=== PATIENT | female | born 1940 | race Caucasian/White ===

== ENCOUNTER 2017-04-10 20:53 | Inpatient (IN) | payer OTHER ==
[~2017-04-10] VITALS: Ht 162.6 cm; Wt 65.3 kg
[~2017-04-10 20:53] MED LIST: ALLERGY RELIEF10 M1; AMIODARONE PO; CALCIUM; DIGOXIN125 MCG PO; FERROUS SULFAT325 MG; FOLIC ACID1 MG PO; FUROSEMIDE40 MG PO; LEVOTHYROXINE75 MCG PO; METOPROLOL TART25 MG PO; MULTI-VITAMIN1 EACH; POTASSIUM CHLORIDE; PRESERVISION T1 EACH; RANITIDINE HCL150 MG; SIMVASTATIN40 MG PO; VENTOLIN HFA18 GM IH; XARELTO PO
[2017-04-10 22:41] LABS: BASOPHILS # (AUTO) 0.1 (0.0-0.1); BASOPHILS % 0.8 % (0.0-1.0); EOSINOPHILS # (AUTO) 0.1 (0.0-0.4); EOSINOPHILS % 1.2 % (0.0-6.0); HEMATOCRIT 38.9 % (34.2-44.1); HEMOGLOBIN 12.1 g/dL (12.0-16.0); LYMPHOCYTES # (AUTO) 1.1 (1.0-3.2); LYMPHOCYTES % 17.6 % (18.0-39.1); MEAN CORPUSCULAR HEMOGLOBIN 31.7 pg (28-32); MEAN CORPUSCULAR HGB CONC 31.1 g/dL (31-35); MEAN CORPUSCULAR VOLUME 101.8 fL (81-99); MONOCYTES # (AUTO) 0.5 (0.2-0.8); MONOCYTES % 8.7 % (4.4-11.3); NEUTROPHILS # (AUTO) 4.4 (2.1-6.9); NEUTROPHILS % 71.5 % (38.7-80.0); PLATELET COUNT 157 x10e3/uL (140-360); RED BLOOD COUNT 3.82 x10e6/uL (3.6-5.1); RED CELL DISTRIBUTION WIDTH 16.1 % (11.7-14.4)
[2017-04-10 22:45] LABS: INR 1.09; PROTHROMBIN TIME 14.7 seconds (11.9-14.5)
[2017-04-10 22:46] LABS: PARTIAL THROMBOPLASTIN TIME 35.5 seconds (23.8-35.5)
[2017-04-10 22:53] LABS: ALBUMIN 3.8 g/dL (3.5-5.0); ALBUMIN/GLOBULIN RATIO 1.2 (0.8-2.0); ANION GAP 11.1 mmol/L (8-16); CALCIUM 8.8 mg/dL (8.4-10.2); CREATININE, SERUM 0.95 mg/dL (0.57-1.11); POTASSIUM 4.1 mmol/L (3.5-5.1)
[2017-04-10 22:59] LABS: CREATINE KINASE MB 2.6 ng/mL (0.00-5.00); TROPONIN I 0.017 ng/mL (0-0.300)
--- NOTE | 2017-04-10 23:06 | Diagnostic Imaging Report ---
CHEST SINGLE (PORTABLE), 04/10/2017 10:33 PM Technique: CHEST SINGLE (PORTABLE) Comparison: None available. Clinical history: Shortness of breath Findings: See Impression Impression: 1. Lines/Tubes: Left chest wall 3 lead ICD. Note that one of the leads (coronary sinus lead?) is retracted over the expected brachiocephalic vein. 2. Moderately enlarged cardiac silhouette poststernotomy. 3. Central vascular congestion without overt edema. No significant effusion. Signed by: Dr Tierra Paz MD on 04/10/2017 11:02 PM
[2017-04-11] MEDS ORDERED: SODIUM CHLORIDE FLUSH 10 ML SYR INJ PRN (00:15)
[2017-04-11 01:30] VITALS: BP 133/81
[2017-04-11 04:00] VITALS: BP 108/66
[2017-04-11 08:47] VITALS: BP 136/80
[2017-04-11] MEDS: FUROSEMIDE INJ 10 MG/ML 4 ML VIAL IV SCH ×2 (09:00→17:00)
[2017-04-11] MEDS: FOLIC ACID 1 MG TAB PO SCH (09:00)
[2017-04-11] MEDS ORDERED: METOPROLOL TARTRATE 25 MG TAB PO SCH (09:00)
[2017-04-11] MEDS: POTASSIUM CHLORIDE 20 MEQ TAB CR PO SCH ×2 (09:00→17:00)
[2017-04-11] MEDS ORDERED: LEVOTHYROXINE SODIUM 75 MCG TAB PO SCH (09:00)
[2017-04-11] MEDS ORDERED: ALBUTEROL SULFATE HFA 8GM INHALATION AEROSOL INH PRN (09:00)
[2017-04-11] MEDS: LORATADINE 10 MG TAB PO SCH (09:00)
[2017-04-11] MEDS: DIGOXIN 0.125 MG TAB PO SCH (09:00)
--- NOTE | 2017-04-11 09:17 | History and Physical ---
PRIMARY CARE PROVIDER: Dr. Nikolai Friedman CONSULTING: Dr. Anand Collado CHIEF COMPLAINT: Acute systolic dysfunction of congestive heart failure. HISTORY: A 77-year-old female with history of extensive coronary disease with bypass surgery times 2 vessels back in 2000. She also had a left carotid endarterectomy and bilateral lower extremity bypass surgery with peripheral vascular disease. Patient came in with acute exacerbation of congestive heart failure. Systolic EF approximately 30% to 35%. The patient is otherwise stable at this time. PAST MEDICAL HISTORY: Coronary artery disease, history of bypass surgery in 2000 times 2 vessels, left carotid endarterectomy, peripheral vascular disease with history of bilateral lower extremity bypass surgery, congestive heart failure, ICD placement in December 2016, hypertension, hyperlipidemia, hypothyroidism, atrial fibrillation, on anticoagulant therapy, Xarelto, chronic kidney disease. PAST SURGICAL HISTORY: Right heart surgery times 2 vessels in 2000, left carotid endarterectomy, bilateral lower extremity bypass surgery, ICD placement December 2016, total abdominal hysterectomy. ALLERGIES: NAPROXEN. HOME MEDICATIONS 1. Ventolin. 2. Digoxin. 3. Ferrous sulfate. 4. Folic acid. 5. Furosemide 40 mg twice a day. 6. Levothyroxine 75 mcg daily. 7. Claritin. 8. Metoprolol tartrate 25 mg daily. 9. Ranitidine. 10. Simvastatin. 11. Amiodarone 200 mg b.i.d. 12. Potassium. 13. Xarelto 60 mg daily. REVIEW OF SYSTEMS: Shortness of breath and lower extremity swelling bilaterally. PHYSICAL EXAMINATION VITAL SIGNS: Temperature is 98, blood pressure 106/56, pulse rate 96, respirations 23. GENERAL: The patient is in no acute distress. HEENT: Normocephalic, atraumatic and anicteric. NECK: Supple grossly. Left carotid endarterectomy. PULMONARY: Diminished breath sounds at bases. CARDIOVASCULAR: S1 and S2 with atrial fibrillation, rate controlled. ABDOMEN: Soft. EXTREMITIES: Bilateral lower extremity edema. NEUROLOGIC: No gross focal deficits. LABORATORY: WBC is 6, hemoglobin 12, hematocrit 39, and platelets 157,000. Sodium 140, potassium 4.1, chloride 102, bicarb 31, BUN 18, creatinine 0.9, glucose 110. IMPRESSION 1. [id number] systolic dysfunction congestive heart failure. 2. Bilateral lower extremity edema. 3. Multiple baseline problems. 4. Coronary disease with previous bypass surgery. 5. Peripheral vascular disease. 6. Implantable cardioverter defibrillator. 7. Hypertension. 8. Medical debility. PLAN: Consultation Dr. Anand Collado. Echocardiogram. IV Lasix. Repeat lab work. Home medication adjustment. PT and OT. DVT prophylaxis. Resume the patient's Xarelto. Job#: [id number] RI
[2017-04-11 10:06] LABS: CREATINE KINASE MB 2.7 ng/mL (0.00-5.00); TROPONIN I 0.025 ng/mL (0-0.300)
--- NOTE | 2017-04-11 11:39 | Consultation ---
DATE OF CONSULTATION: April 11, 2017 CARDIOLOGY CONSULTATION REASON FOR CONSULTATION: CHF. HPI: This is a pleasant 77-year-old female that presented with bilateral lower extremity edema. According to the patient, she started feeling some tightness and redness to the bilateral lower extremities that she decided to come into the emergency room for evaluation. She recently had a history of ICD placement at [facility], and developed a hematoma. ICD was removed. Blood clot was removed and reimplanted. She also has a history of AFib, on digoxin. Was not anticoagulated due to anemia. She denies any chest pain, any dizziness or diaphoresis. Troponin was negative. EKG showed normal sinus rhythm with some PVCs. BNP was 1402. PAST MEDICAL HISTORY: Hypertension, hiatal hernia, hypothyroidism, PAD, CAD, COPD, CHF, MA, hyperlipidemia, and AFib. PAST SURGICAL HISTORY: Appendectomy, ICD placement, left CEA, hysterectomy, bilateral fem-pop, and CABG times 2. FAMILY HISTORY: Positive for CAD. SOCIAL HISTORY: No smoking. No drinking. MEDICATION: See med list. ALLERGIES: SHE IS ALLERGIC TO NAPROXEN. REVIEW OF SYSTEMS: Negative except those mentioned above. She is positive for bilateral lower extremity edema and redness. PHYSICAL EXAMINATION VITALS: Temperature 97, heart rate 99, blood pressure 136/80, respirations 20, oxygen saturation 100% on 2 L nasal cannula. GENERAL: She is awake, alert and oriented times 3. HEENT: Mucous membrane moist. NECK: Supple. LUNGS: With decreased breath sounds. CARDIOVASCULAR: Irregular. ABDOMEN: Soft. EXTREMITIES: With +3 edema. NEUROLOGIC: Intact. LABS: Sodium 140, potassium 4.1, chloride 102, CO2 31, BUN 18, creatinine 0.95, glucose 110. White blood cells 6.08, hemoglobin 12.1, hematocrit 38.9, and platelets 157,000. PT 14.7, PTT 35.5 and INR 1.09. IMPRESSION 1. Systolic congestive heart failure. 2. Coronary artery disease with coronary artery bypass graft. 3. History of implantable cardioverter defibrillator placement. 4. Anemia. 5. Peripheral arterial disease, status post hematoma evacuation from implantable cardioverter defibrillator site. 6. Hypothyroidism. 7. History of atrial fibrillation. ASSESSMENT AND PLAN: Will go ahead and continue IV diureses. Put her on low-dose ROMEL, beta germán and statin. Put her on fluid restriction. Strict salt restriction. Further cardiac workup pending clinical course. Thank you for this consultation. DICTATED BY DENVER FRENCH NP Job#: [id number] RI
[2017-04-11 13:46] VITALS: BP 119/73
--- NOTE | 2017-04-11 15:44 | Diagnostic Imaging Report ---
PROCEDURE: CT CHEST WITHOUT CONTRAST CT scan of the chest WITHOUT intravenous contrast, using standard protocol. TECHNIQUE: The chest was scanned utilizing a multidetector helical scanner from the apex to the level of the adrenal glands. No IV contrast was administered because of referring physician request. Coronal and sagittal multiplanar reformations were obtained. COMPARISON: None. INDICATIONS: SHORTNESS OF BREATH FINDINGS: Lines/tubes: None. Lungs and Airways: Advanced upper lobe predominant centrilobular and paraseptal emphysematous changes. Superimposed smooth interlobular septal thickening. Linear opacity in the lung bases, right greater than left compatible with subsegmental atelectasis. 4 mm nodule in the right lower lobe. No gross consolidation, honeycombing, or bronchiectasis. Trachea, mainstem bronchi, and central lobar and segmental bronchi are patent. Pleura: Trace bilateral pleural effusions no pneumothorax. Heart and mediastinum: Visualized portions of the thyroid gland appear normal. No ectasia or aneurysmal dilatation of the thoracic aorta. Atherosclerotic calcification of the thoracic aorta, great vessel origins, and ambler coronary arteries. Postsurgical changes of coronary artery bypass and left subclavian approach implantable cardiac device placement. Leads lie within the right atrium and right ventricle. Moderate cardiomegaly with four-chamber cardiac enlargement. Pulmonary outflow tract is of normal caliber. Soft tissues: No focal soft tissue abnormalities. Abdomen: Visualized portions of the liver, spleen, and proximal stomach are notable only for enlargement of the hepatic veins and intrahepatic IVC likely indicative of elevated right heart pressures. Bones: No acute osseous abnormality. IMPRESSION: Moderate cardiomegaly with interstitial pulmonary edema and trace bilateral pleural effusions. Upper lobe predominant emphysema. Atherosclerotic vascular disease. 4 mm nodule in the right lower lobe should be assessed for stability by CT scan the chest in one year if the patient is at increased risk of malignancy. Dictated by: Tom Baum M.D. on 04/11/2017 at 15:52 Electronically approved by: Tom Baum M.D. on 04/11/2017 at 15:52
[2017-04-11] MEDS: METOPROLOL TARTRATE 25 MG TAB PO SCH (17:00)
[2017-04-11 20:09] VITALS: BP 119/66
[2017-04-11] MEDS ORDERED: SIMVASTATIN 40 MG TAB PO SCH (21:00)
[2017-04-11 21:21] LABS: CREATINE KINASE MB 2.6 ng/mL (0.00-5.00); TROPONIN I 0.022 ng/mL (0-0.300)
[2017-04-11] MEDS: SIMVASTATIN 40 MG TAB PO SCH (21:26)
[2017-04-12 00:20] VITALS: BP 121/70
[2017-04-12 04:00] VITALS: BP 101/65
[2017-04-12] MEDS: LEVOTHYROXINE SODIUM 75 MCG TAB PO SCH (06:03)
[2017-04-12 06:48] LABS: BASOPHILS # (AUTO) 0.1 (0.0-0.1); BASOPHILS % 0.9 % (0.0-1.0); EOSINOPHILS # (AUTO) 0.1 (0.0-0.4); EOSINOPHILS % 1.4 % (0.0-6.0); HEMATOCRIT 33.5 % (34.2-44.1); HEMOGLOBIN 10.7 g/dL (12.0-16.0); LYMPHOCYTES # (AUTO) 0.9 (1.0-3.2); LYMPHOCYTES % 15.8 % (18.0-39.1); MEAN CORPUSCULAR HEMOGLOBIN 31.8 pg (28-32); MEAN CORPUSCULAR HGB CONC 31.9 g/dL (31-35); MEAN CORPUSCULAR VOLUME 99.4 fL (81-99); MONOCYTES # (AUTO) 0.6 (0.2-0.8); MONOCYTES % 10.8 % (4.4-11.3); NEUTROPHILS # (AUTO) 4.1 (2.1-6.9); NEUTROPHILS % 70.8 % (38.7-80.0); PLATELET COUNT 125 x10e3/uL (140-360); RED BLOOD COUNT 3.37 x10e6/uL (3.6-5.1)
[2017-04-12 07:13] LABS: ANION GAP 14.1 mmol/L (8-16); BLOOD UREA NITROGEN 18 mg/dL (7-26); BUN/CREATININE RATIO 20 (6-25); CALCIUM 8.9 mg/dL (8.4-10.2); CARBON DIOXIDE 30 mmol/L (22-29); CHLORIDE 102 mmol/L (98-107); CREATININE, SERUM 0.88 mg/dL (0.57-1.11); EST GLOMERULAR FILTRATION RATE > 60 ML/MIN (60-); GLUCOSE 93 mg/dL (74-118); POTASSIUM 4.1 mmol/L (3.5-5.1); SODIUM 142 mmol/L (136-145)
[2017-04-12 08:09] VITALS: BP 107/68
[2017-04-12 08:36] LABS: THYROID STIMULATING HORMONE 8.293 uIU/mL (0.350-4.940)
[2017-04-12] MEDS: FOLIC ACID 1 MG TAB PO SCH (09:28)
[2017-04-12] MEDS: POTASSIUM CHLORIDE 20 MEQ TAB CR PO SCH ×2 (09:28→17:32)
[2017-04-12] MEDS: LORATADINE 10 MG TAB PO SCH (09:28)
[2017-04-12] MEDS: DIGOXIN 0.125 MG TAB PO SCH (09:28)
[2017-04-12] MEDS: FUROSEMIDE INJ 10 MG/ML 4 ML VIAL IV SCH ×2 (09:28→18:03)
[2017-04-12] MEDS: METOPROLOL TARTRATE 25 MG TAB PO SCH ×2 (09:28→17:33)
[2017-04-12] MEDS: RIVAROXABAN 15 MG TABLET PO SCH (09:29)
[2017-04-12] MEDS: LISINOPRIL 10 MG TAB PO SCH (09:29)
[2017-04-12 12:24] VITALS: BP 104/69
[2017-04-12 16:00] VITALS: BP 114/72
[2017-04-12 19:30] VITALS: BP 97/61
[2017-04-12] MEDS: SIMVASTATIN 40 MG TAB PO SCH (23:19)
[2017-04-13 02:17] VITALS: BP 95/67
[2017-04-13] MEDS: LEVOTHYROXINE SODIUM 75 MCG TAB PO SCH (05:54)
[2017-04-13 05:56] VITALS: BP 134/77
[2017-04-13 08:09] VITALS: BP 100/60
[2017-04-13] MEDS: LORATADINE 10 MG TAB PO SCH (08:40)
[2017-04-13] MEDS: METOPROLOL TARTRATE 25 MG TAB PO SCH ×2 (08:40→15:46)
[2017-04-13] MEDS: POTASSIUM CHLORIDE 20 MEQ TAB CR PO SCH ×2 (08:40→15:51)
[2017-04-13] MEDS: FOLIC ACID 1 MG TAB PO SCH (08:40)
[2017-04-13] MEDS: DIGOXIN 0.125 MG TAB PO SCH (08:40)
[2017-04-13] MEDS: FUROSEMIDE INJ 10 MG/ML 4 ML VIAL IV SCH (08:40)
[2017-04-13] MEDS: LISINOPRIL 10 MG TAB PO SCH (08:41)
[2017-04-13] MEDS: RIVAROXABAN 15 MG TABLET PO SCH (08:41)
[2017-04-13] MEDS ORDERED: LISINOPRIL 10 MG TAB PO SCH (09:00)
[2017-04-13] MEDS: FUROSEMIDE 40 MG TAB PO SCH ×2 (09:00→15:51)
[2017-04-13] MEDS: LISINOPRIL 2.5 MG TAB PO SCH (09:17)
[2017-04-13] MEDS: METOLAZONE 5 MG TAB PO SCH (10:53)
[2017-04-13 12:00] VITALS: BP 95/60
[2017-04-13 15:48] VITALS: BP 96/67
[2017-04-13 20:00] VITALS: BP 103/59
[2017-04-13] MEDS: SIMVASTATIN 40 MG TAB PO SCH (20:10)
[2017-04-14] VITALS: BP 103/56
[2017-04-14 04:00] VITALS: BP 125/67
[2017-04-14] MEDS: LEVOTHYROXINE SODIUM 75 MCG TAB PO SCH (05:41)
[2017-04-14 06:55] LABS: BASOPHILS % 0.6 % (0.0-1.0); EOSINOPHILS # (AUTO) 0.1 (0.0-0.4); EOSINOPHILS % 1.5 % (0.0-6.0); HEMATOCRIT 37.6 % (34.2-44.1); HEMOGLOBIN 11.6 g/dL (12.0-16.0); LYMPHOCYTES # (AUTO) 1.2 (1.0-3.2); LYMPHOCYTES % 22.7 % (18.0-39.1); MEAN CORPUSCULAR HEMOGLOBIN 30.9 pg (28-32); MEAN CORPUSCULAR HGB CONC 30.9 g/dL (31-35); MONOCYTES # (AUTO) 0.6 (0.2-0.8); MONOCYTES % 10.7 % (4.4-11.3); NEUTROPHILS # (AUTO) 3.4 (2.1-6.9); NEUTROPHILS % 64.1 % (38.7-80.0); PLATELET COUNT 164 x10e3/uL (140-360); RED BLOOD COUNT 3.76 x10e6/uL (3.6-5.1); RED CELL DISTRIBUTION WIDTH 15.7 % (11.7-14.4)
[2017-04-14 07:23] LABS: CALCIUM 9.3 mg/dL (8.4-10.2); CREATININE, SERUM 1.02 mg/dL (0.57-1.11)
[2017-04-14 08:09] VITALS: BP 116/61
[2017-04-14] MEDS: FUROSEMIDE 40 MG TAB PO SCH (08:33)
[2017-04-14] MEDS: POTASSIUM CHLORIDE 20 MEQ TAB CR PO SCH (08:33)
[2017-04-14] MEDS: FOLIC ACID 1 MG TAB PO SCH (08:33)
[2017-04-14] MEDS: LORATADINE 10 MG TAB PO SCH (08:33)
[2017-04-14] MEDS: RIVAROXABAN 15 MG TABLET PO SCH (08:34)
[2017-04-14] MEDS: DIGOXIN 0.125 MG TAB PO SCH (08:34)
[2017-04-14] MEDS: METOLAZONE 5 MG TAB PO SCH (08:34)
[2017-04-14] MEDS: METOPROLOL TARTRATE 25 MG TAB PO SCH (08:34)
[2017-04-14] MEDS: LISINOPRIL 2.5 MG TAB PO SCH (08:34)
[2017-04-14] MEDS ORDERED: LISINOPRIL 2.5 MG TAB PO SCH (09:00)
--- NOTE | 2017-04-14 09:52 | Discharge Summary ---
PCP: Dr. Nikolai Friedman CUTTER OPERATOR: Dr. Anand Collado FINAL DIAGNOSES 1. [id number] systolic dysfunction congestive heart failure. 2. Baseline hypertension. 3. Baseline atrial fibrillation, on anticoagulant therapy. A 77-year-old female came in with lower extremity swelling consistent with [id number] systolic dysfunction congestive heart failure. The patient received IV furosemide. She did much better. The patient is back to her usual regimen. Instructions for the patient regarding fluid restriction. Patient is stable. She will go home today and resume home medications. In addition to her home medications, she will take Zaroxolyn 5 mg daily as needed for increasing leg swelling or increasing shortness of breath or weight gain. Patient expressed understanding. She will go home today and follow up as an outpatient. The patient should follow up with Dr. Nikolai Friedman early next week and Dr. Collado within a week. Job#: [id number] [place]
== END 2017-04-14 11:20 | disposition home health service (06) | DRG 293 ==
LOC: ER 20:53 → MED/SURG 04-11 01:01
PROVIDERS: ADMIT Internal Medicine; ATTEND Internal Medicine
DX: I11.0 Hypertensive heart disease with heart failure (principal); J44.9 Chronic obstructive pulmonary disease, unspecified; I48.2 Chronic atrial fibrillation; I73.9 Peripheral vascular disease, unspecified; I50.23 Acute on chronic systolic (congestive) heart failure; Z79.01 Long term (current) use of anticoagulants; E03.9 Hypothyroidism, unspecified; I25.10 Atherosclerotic heart disease of native coronary artery without angina pectoris; D64.9 Anemia, unspecified; Z95.1 Presence of aortocoronary bypass graft; Z79.52 Long term (current) use of systemic steroids; R60.0 Localized edema; I25.2 Old myocardial infarction
CPT/HCPCS: 36415; 71010; 71250; 80048; 80053; 82550; 82553; 83880; 84443; 84484; 85025; 85610; 85730; 93005; 93306; 93970; 99284; J1940

== ENCOUNTER 2017-05-22 19:23 | Observation (INO) | payer OTHER ==
[~2017-05-22] VITALS: Ht 162.6 cm; Wt 54.0 kg
[2017-05-22] MEDS ORDERED: PANTOPRAZOLE 40 MG 10ML VIAL IV STA (19:51)
[2017-05-22] MEDS ORDERED: AMIODARONE HCL200 MG PO (20:02)
[2017-05-22] MEDS ORDERED: POTASSIUM CHLO10 ME1 PO (20:02)
[2017-05-22 20:26] LABS: BASOPHILS # (AUTO) 0.1 (0.0-0.1); BASOPHILS % 0.7 % (0.0-1.0); EOSINOPHILS % 0.6 % (0.0-6.0); HEMATOCRIT 43.3 % (34.2-44.1); HEMOGLOBIN 13.8 g/dL (12.0-16.0); LYMPHOCYTES # (AUTO) 1.4 (1.0-3.2); LYMPHOCYTES % 20.9 % (18.0-39.1); MEAN CORPUSCULAR HEMOGLOBIN 32.3 pg (28-32); MEAN CORPUSCULAR HGB CONC 31.9 g/dL (31-35); MEAN CORPUSCULAR VOLUME 101.4 fL (81-99); MONOCYTES # (AUTO) 0.6 (0.2-0.8); NEUTROPHILS # (AUTO) 4.6 (2.1-6.9); NEUTROPHILS % 68.7 % (38.7-80.0); PLATELET COUNT 179 x10e3/uL (140-360); RED BLOOD COUNT 4.27 x10e6/uL (3.6-5.1); RED CELL DISTRIBUTION WIDTH 14.5 % (11.7-14.4)
[2017-05-22 20:31] LABS: INR 1.43; PARTIAL THROMBOPLASTIN TIME 40.7 seconds (23.8-35.5); PROTHROMBIN TIME 18.2 seconds (11.9-14.5)
[2017-05-22 20:37] LABS: BILIRUBIN,URINE NEGATIVE (NEGATIVE); CLARITY,URINE CLEAR (CLEAR); COLOR,URINE YELLOW (YELLOW); KETONES,URINE NEGATIVE (NEGATIVE); LEUKOCYTE ESTERASE ,URINE NEGATIVE (NEGATIVE); NITRITE,URINE NEGATIVE (NEGATIVE); PROTEIN,URINE DIPSTICK NEGATIVE (NEGATIVE); URINE UROBILINOGEN 0.2 mg/dL (0.2 - 1)
[2017-05-22 20:41] LABS: ALBUMIN 4.8 g/dL (3.5-5.0); ALBUMIN/GLOBULIN RATIO 1.3 (0.8-2.0); ANION GAP 15.7 mmol/L (8-16); CREATININE, SERUM 1.39 mg/dL (0.57-1.11); MAGNESIUM 2.3 MG/DL (1.3-2.1); POTASSIUM 3.7 mmol/L (3.5-5.1)
--- NOTE | 2017-05-22 20:52 | Diagnostic Imaging Report ---
Examination: CT head without contrast Clinical Indication: Dizziness. Hypotension.. Technique: Transaxial noncontrast images from the skull base through the vertex were obtained. Sagittal and coronal reformatted images were done. Comparison: None. Findings: Scalp: No abnormalities. Bones: Intact. No fractures. No blastic or lytic lesions. Brain sulci: Appropriate for patient's age. Ventricles: Normal in size and configuration. No hydrocephalus. . Extra-axial space: No abnormalities. Parenchyma: There are subtle confluent areas of low-attenuation within subcortical and periventricular white matter, nonspecific, but could represent microvascular ischemic disease. No masses, hemorrhage, or acute vascular insults. Suprasellar region: No abnormalities. Craniocervical junction: The foramen magnum is patent. No Chiari one malformation. Incidental findings: Atherosclerotic calcification of the cavernous and supraclinoid internal carotid arteries. Impression: 1. No acute intracranial abnormality. 2. Mild chronic microvascular ischemic change. Signed by: Dr. Mary Mart M.D. on 05/22/2017 8:48 PM
[2017-05-22 20:56] LABS: B-TYPE NATRIURETIC PEPTIDE2 669.5 pg/mL (0-100)
[2017-05-22 20:58] LABS: BACTERIA,URINE FEW /HPF; EPITHELIAL CELLS,URINE FEW /LPF; RBC,URINE 0-5 /HPF (0-5); WBC,URINE (MAN) 0-5 /HPF (0-5)
[2017-05-22 21:01] LABS: CREATINE KINASE MB 2.2 ng/mL (0.00-5.00); THYROID STIMULATING HORMONE 6.36 uIU/mL (0.350-4.940)
--- NOTE | 2017-05-22 21:20 | Diagnostic Imaging Report ---
CHEST SINGLE (PORTABLE), 05/22/2017 7:51 PM Technique: CHEST SINGLE (PORTABLE) Comparison: 04/10/2017 Clinical history: Cough, lightheadedness Findings: See Impression Impression: 1. Lines/Tubes: Stable left chest wall ICD. One of the leads (coronary sinus) is again retracted over the brachiocephalic vein. 2. Stable enlarged cardiac silhouette status post sternotomy with central vascular congestion. 3. Trace effusions. Signed by: Dr Tierra Paz MD on 05/22/2017 9:16 PM
[2017-05-22] MEDS ORDERED: SODIUM CHLORIDE 0.9% 250ML 250 ML IV ONE (21:45)
[2017-05-22] MEDS ORDERED: SODIUM CHLORIDE 0.9% 500ML 500 ML IV ONE (21:45)
[2017-05-22] MEDS ORDERED: SODIUM CHLORIDE 0.9% 250ML 250 ML ONE (21:46)
[2017-05-23] VITALS (7 sets, daily range): BP systolic 95–110; BP diastolic 58–67
[2017-05-23] MEDS ORDERED: DEXTROSE 50% SYRINGE 50 ML IV PRN (00:45)
[2017-05-23] MEDS ORDERED: ONDANSETRON HCL INJ 2 MG/ML VIAL IV PRN (00:45)
[2017-05-23] MEDS ORDERED: SODIUM CHLORIDE 0.9% 500ML 500 ML IV ONE (00:45)
[2017-05-23] MEDS ORDERED: FAMOTIDINE 20 MG/2 ML VIAL IV SCH (00:45)
[2017-05-23 03:42] LABS: CREATINE KINASE MB 2.3 ng/mL (0.00-5.00)
[2017-05-23] MEDS: INSULIN REGULAR, HUMAN 100 UNIT/1 ML 3ML VIAL SQ SCH ×4 (07:30→20:54)
[2017-05-23 07:41] LABS: BASOPHILS % 0.5 % (0.0-1.0); EOSINOPHILS # (AUTO) 0.1 (0.0-0.4); EOSINOPHILS % 1.2 % (0.0-6.0); HEMATOCRIT 35.9 % (34.2-44.1); HEMOGLOBIN 11.4 g/dL (12.0-16.0); LYMPHOCYTES # (AUTO) 1.4 (1.0-3.2); LYMPHOCYTES % 24.8 % (18.0-39.1); MEAN CORPUSCULAR HEMOGLOBIN 32.3 pg (28-32); MEAN CORPUSCULAR HGB CONC 31.8 g/dL (31-35); MEAN CORPUSCULAR VOLUME 101.7 fL (81-99); MONOCYTES # (AUTO) 0.6 (0.2-0.8); MONOCYTES % 10.2 % (4.4-11.3); NEUTROPHILS # (AUTO) 3.6 (2.1-6.9); NEUTROPHILS % 63.1 % (38.7-80.0); PLATELET COUNT 142 x10e3/uL (140-360); RED BLOOD COUNT 3.53 x10e6/uL (3.6-5.1); RED CELL DISTRIBUTION WIDTH 14.4 % (11.7-14.4)
[2017-05-23 07:53] LABS: ALBUMIN 3.9 g/dL (3.5-5.0); ALBUMIN/GLOBULIN RATIO 1.4 (0.8-2.0); ANION GAP 14.1 mmol/L (8-16); CALCIUM 8.9 mg/dL (8.4-10.2); CREATININE, SERUM 1.14 mg/dL (0.57-1.11); POTASSIUM 3.1 mmol/L (3.5-5.1)
[2017-05-23] MEDS ORDERED: POTASSIUM CHLORIDE 10 MEQ TABCR PO ONE (09:00)
[2017-05-23] MEDS ORDERED: LEVOTHYROXINE SODIUM 75 MCG TAB PO SCH (09:00)
[2017-05-23] MEDS ORDERED: AMIODARONE PO SCH (09:00)
[2017-05-23] MEDS ORDERED: XARELTO 15 MG PO SCH (09:00)
[2017-05-23] MEDS: LORATADINE 10 MG TAB PO SCH (09:20)
[2017-05-23] MEDS: FOLIC ACID 1 MG TAB PO SCH (09:20)
[2017-05-23] MEDS: METOPROLOL TARTRATE 25 MG TAB PO SCH (09:21)
[2017-05-23] MEDS: DIGOXIN 0.125 MG TAB PO SCH (09:21)
--- NOTE | 2017-05-23 09:41 | History and Physical ---
CHIEF COMPLAINT: Dehydration and generalized weakness. HISTORY: Patient is a 77-year-old female with baseline systolic dysfunction and congestive heart failure. The patient basically was taking multiple diabetics at home. She does have ICD in the left chest area. The patient came in for dehydration. Apparently, she lost 20 pounds over the past 12 weeks. The patient is otherwise stable at this time. She is feeling a little better today with rehydration. PAST MEDICAL HISTORY: Hypertension, hiatal hernia, hypothyroidism, peripheral arterial and vascular disease, coronary disease with previous bypass surgery, COPD, baseline congestive heart failure, systolic, hyperlipidemia , atrial fibrillation. PAST SURGICAL HISTORY: Appendectomy, ICD placement left chest, CEA, hysterectomy, bilateral fem-pop surgery, bypass surgery times 2. SOCIAL HISTORY: Patient lives at home with her family. She does have home health and provider care. Patient does not smoke or use alcohol. No regular drugs. ALLERGIES: NAPROXEN. MEDICATIONS: List reviewed. REVIEW OF SYSTEMS: Generalized weakness. PHYSICAL EXAMINATION VITAL SIGNS: Temperature is 98, blood pressure is 110/67, pulse rate is 101, respirations 18. GENERAL: The patient is not in acute distress. She is awake. HEENT: Normocephalic, atraumatic and anicteric. NECK: Supple grossly. PULMONARY: Diminished breath sounds without any wheezing. CARDIOVASCULAR: S1 and S2. Irregularly irregular tachy. ICD in left chest. ABDOMEN: Soft, nontender and no distention. EXTREMITIES: No gross cyanosis or edema. NEUROLOGIC: No gross focal deficit. LABORATORY: Sodium is 137, potassium 3.1, chloride 91, bicarb 35, BUN 26, creatinine 1.1, glucose is 97. WBC is 5.8, hemoglobin 11.4, hematocrit 35.9, and platelets 142,000. IMPRESSION 1. Dehydration. 2. Overdiuresis. 3. Baseline systolic dysfunction and congestive heart failure without exacerbation. 4. Baseline chronic obstructive pulmonary disease without exacerbation. PLAN: Gentle IV fluid rehydration. Hold off on the patient's diuretic. Discontinue Holloway. Will monitor the patient closely. The patient is in observation for now. Job#: [id number] ID
[2017-05-23] MEDS ORDERED: AMIODARONE HCL 200 MG TAB PO SCH (10:00)
[2017-05-23] MEDS: POTASSIUM CHLORIDE 10 MEQ TABCR PO SCH ×2 (10:30→16:47)
[2017-05-23 11:27] LABS: CREATINE KINASE MB 2.6 ng/mL (0.00-5.00)
[2017-05-23] MEDS: AMIODARONE HCL 200 MG TAB PO SCH (16:47)
[2017-05-23 17:33] LABS: CREATINE KINASE MB 2.3 ng/mL (0.00-5.00)
[2017-05-23] MEDS ORDERED: SIMVASTATIN 40 MG TAB PO SCH (21:00)
[2017-05-24 00:10] VITALS: BP 94/60
[2017-05-24 04:00] VITALS: BP 92/66
[2017-05-24] MEDS ORDERED: LEVOTHYROXINE SODIUM 75 MCG TAB PO SCH (06:00)
[2017-05-24 06:43] LABS: BASOPHILS % 0.6 % (0.0-1.0); EOSINOPHILS # (AUTO) 0.1 (0.0-0.4); EOSINOPHILS % 2.3 % (0.0-6.0); HEMATOCRIT 36.5 % (34.2-44.1); HEMOGLOBIN 11.6 g/dL (12.0-16.0); LYMPHOCYTES # (AUTO) 1.4 (1.0-3.2); MEAN CORPUSCULAR HGB CONC 31.8 g/dL (31-35); MEAN CORPUSCULAR VOLUME 100.8 fL (81-99); MONOCYTES # (AUTO) 0.6 (0.2-0.8); MONOCYTES % 10.7 % (4.4-11.3); NEUTROPHILS % 58.2 % (38.7-80.0); PLATELET COUNT 141 x10e3/uL (140-360); RED BLOOD COUNT 3.62 x10e6/uL (3.6-5.1); RED CELL DISTRIBUTION WIDTH 14.2 % (11.7-14.4)
[2017-05-24 07:04] LABS: ANION GAP 12.7 mmol/L (8-16); CALCIUM 9.1 mg/dL (8.4-10.2); CREATININE, SERUM 1.11 mg/dL (0.57-1.11); POTASSIUM 3.7 mmol/L (3.5-5.1)
[2017-05-24] MEDS: INSULIN REGULAR, HUMAN 100 UNIT/1 ML 3ML VIAL SQ SCH (07:30)
[2017-05-24 08:00] VITALS: BP 106/70
[2017-05-24] MEDS ORDERED: RIVAROXABAN 15 MG TABLET PO SCH (09:00)
[2017-05-24] MEDS: FOLIC ACID 1 MG TAB PO SCH (09:18)
[2017-05-24] MEDS: LORATADINE 10 MG TAB PO SCH (09:18)
[2017-05-24] MEDS: POTASSIUM CHLORIDE 10 MEQ TABCR PO SCH (09:18)
[2017-05-24] MEDS: AMIODARONE HCL 200 MG TAB PO SCH (09:18)
[2017-05-24] MEDS: DIGOXIN 0.125 MG TAB PO SCH (09:18)
[2017-05-24] MEDS: METOPROLOL TARTRATE 25 MG TAB PO SCH (09:19)
--- NOTE | 2017-05-24 11:51 | Discharge Summary ---
FINAL DIAGNOSES 1. Dehydration secondary to overdiuresis of baseline congestive heart failure, compensated. 2. Baseline compensated cardiomyopathy with congestive heart failure, systolic. SUMMARY: A 77-year-old female with dehydration. The patient has compensated congestive heart failure. She was unable to eat, had some dehydration because of overdiuresis. She was given IV fluids. The patient is stable now. She is comfortable. She will go home today, resume her home medication. BUN and creatinine are 23 and 1.1 respectively. Sodium is 142 and potassium 3.7. I educated the patient regarding fluid status and she expressed understanding. The patient is stable. Discharged home today, follow up as an outpatient for any further adjustment of her medications. I suggested the patient to weigh herself on a daily basis and adjust her diuretic and fluid management accordingly. Job#: [id number] SAK
== END 2017-05-24 12:10 | disposition home or self-care (01) ==
LOC: ER 19:23 → ERHOLD 05-23 00:59 → IMCU 05-23 02:53
PROVIDERS: ADMIT Internal Medicine; ATTEND Internal Medicine
DX: E86.0 Dehydration (principal); J44.9 Chronic obstructive pulmonary disease, unspecified; T50.1X5A Adverse effect of loop [high-ceiling] diuretics, initial encounter; I50.22 Chronic systolic (congestive) heart failure; I25.10 Atherosclerotic heart disease of native coronary artery without angina pectoris; N28.9 Disorder of kidney and ureter, unspecified
CPT/HCPCS: 36415 ×3; 70450; 71045; 80048; 80053 ×2; 81001; 82150; 82550 ×2; 82553 ×2; 82948; 83605; 83690; 83735; 83880; 84443; 84484 ×2; 85025 ×3; 85610; 85730; 87040; 87086; 87400; 93005; 99284; G0378 ×2; J7040; J7050

== ENCOUNTER 2017-07-20 16:00 | Emergency (ER) | payer OTHER ==
[~2017-07-20] VITALS: Ht 162.6 cm; Wt 54.0 kg
[~2017-07-20 16:00] MED LIST changes: +AMIODARONE HCL200 MG PO; +POTASSIUM CHLO10 ME1 PO
--- OUTSIDE RECORDS SUMMARY | 2017-07-20 16:04 | XMS REPORT | Continuity of Care Document ---
Author Author [facility] Organization [facility] Address [address] [place] [address] [place] [address] Phone Unavailable Care Team Providers Care Books Binder Name Role Phone JUANITA BRENNAN MD PCP Insurance Providers Guarantor Natalia Echevarria Address [address] [address] Email [email or web address] Payer [employer] Policy Number [id number] Subscriber's Name Natalia Echevarria Relationship 18 Self / Same As Patient Group Number [id number] Group Name [employer] - [employer] Ad[employer]age [employer] Effective Date 17 Advance Directives Directive Response Recorded Date/Time Does the patient have an advance directive? No 05/23/17 4:33am If yes, is advance directive on file with [facility]? No 05/23/17 4:33am If not on file with [facility] will patient provide a copy? No 05/23/17 4:33am Do you have a Directive to Physician? No 05/22/17 9:43pm Do you have a Medical Power of Supervisor Hand Workers? No 05/22/17 9:43pm Do you have an out of hospital Do Not Resuscitate Order? No 05/22/17 9:43pm Do you have any special needs we should be aware of? No 05/22/17 9:43pm Do you have a support person here with you today? Yes 05/22/17 9:43pm Did patient receive Notice of Privacy Practices? Yes 05/22/17 9:43pm Did patient receive patient rights and responsibilities? Yes 05/22/17 9:43pm Problems Medical Problem Onset Date Status CHF (congestive heart failure) Unknown Dehydration Unknown Renal insufficiency Unknown Medications Current Home Medications Medication Dose Units Route Directions Days Qty Instructions Start Date Albuterol Sulfate (Ventolin Hfa) 18 Gm Hfa.aer.ad 1-2 Inh Inhalation Every 4 Hours Amiodarone 20 Mg Oral Twice A Day Beta Carotene (Preservision Tablet) 1 Each Tab 1 Tab Twice A Day Digoxin 125 Mcg Tablet 0.125 Mg Oral Daily 30 Tab Ferrous Sulfate 325 Mg Tablet Twice A Day Folic Acid 1 Mg Tablet 1 Mg Oral Daily 30 Tab Furosemide 40 Mg Tablet 40 Mg Oral Twice A Day 30 Tab Levothyroxine Sodium 75 Mcg Tablet 75 Mcg Oral Daily 30 Tab Loratadine (Allergy Relief) 10 Mg Tablet Daily Metoprolol Tartrate 25 Mg Tablet 25 Mg Oral Daily Multivitamin (Multi-Vitamin Daily) 1 Each Tablet Daily Potassium Chloride 2 Tab Daily Potassium Chloride 10 Meq Tab.er.prt 10 Meq Oral Before Meals Ranitidine Hcl 150 Mg Tablet Daily Simvastatin 40 Mg Tablet 40 Mg Oral Bedtime 30 Tab Xarelto 15 Mg Oral Daily Past Home Medications Medication Directions Ordered Status Amiodarone Hcl 200 Mg Tablet, 1 Tab Oral Daily Discontinued Calcuium , 600 Mg Twice A Day Discontinued Social History Social History Problem Response Recorded Date/Time Onset Date Status Hx Psychiatric Problems No 05/23/2017 4:33am Not Applicable Not Applicable Hx Eating Disorder No 05/23/2017 4:33am Not Applicable Not Applicable Hx Substance Use Disorder No 05/23/2017 4:33am Not Applicable Not Applicable Hx Depression No 05/23/2017 4:33am Not Applicable Not Applicable Hx Alcohol Use No 05/23/2017 4:33am Not Applicable Not Applicable Hx Substance Use Treatment No 05/23/2017 4:33am Not Applicable Not Applicable Hx Physical Abuse No 05/23/2017 4:33am Not Applicable Not Applicable Smoking Status Start Date Stop Date Former smoker Hospital Discharge Instructions No hospital discharge instruction information available. Plan of Care Discharge Date 05/24/17 12:10pm Disposition HOME, SELF-CARE Instructions/Education Provided Dehydration - Adult Congestive Heart Failure Prescriptions See Medication Section Functional Status Query Response Date Recorded Assistive Devices Rolling Walker May 23, 2017 4:22am Ambulation Ability Independent May 23, 2017 4:22am Toileting Ability Independent May 23, 2017 5:38pm Allergies, Adverse Reactions, Alerts Allergen Type Severity Reaction Status Last Updated Naproxen Allergy Unknown RASH Active 04/06/17 Immunizations No immunization information available. Vital Signs Acute Vital Signs Vital Response Date/Time Temperature (Fahrenheit) 96.7 degrees F (97.6 - 99.5) 05/24/2017 8:00am Pulse Pulse Rate (adult) 103 bpm (60 - 90) 05/24/2017 8:00am Respiratory Rate 20 bpm (12 - 24) 05/24/2017 8:00am Blood Pressure 106/70 mm Hg 05/24/2017 8:00am Height 5 ft 4 in 05/22/2017 7:35pm Weight 119.13 lb 05/24/2017 12:11am Body Mass Index 20.4 kg/m^2 05/24/2017 12:11am Results Laboratory Results Test Name Result Units Flags Reference Collection Date/Time Result Date/ Time Comments White Blood Count 5.15 x10e3/uL 4.8-10.8 05/24/2017 6:18am 05/24/2017 6 :46am Red Blood Count 3.62 x10e6/uL 3.6-5.1 05/24/2017 6:18am 05/24/2017 6: 46am Hemoglobin 11.6 g/dL L 12.0-16.0 05/24/2017 6:18am 05/24/2017 6:46am Hematocrit 36.5 % 34.2-44.1 05/24/2017 6:18am 05/24/2017 6:46am Mean Corpuscular Volume 100.8 fL H 81-99 05/24/2017 6:18am 05/24/2017 6: 46am Mean Corpuscular Hemoglobin 32.0 pg 28-32 05/24/2017 6:18am 05/24/2017 6:46am Mean Corpuscular Hemoglobin Concent 31.8 g/dL 31-35 05/24/2017 6:05/24/2017 6:46am Red Cell Distribution Width 14.2 % 11.7-14.4 05/24/2017 6:2017 6:46am Platelet Count 141 x10e3/uL 140-360 05/24/2017 6:05/24/2017 6: 46am Neutrophils (%) (Auto) 58.2 % 38.7-80.0 05/24/2017 6:05/24/2017 6: 46am Lymphocytes (%) (Auto) 28.0 % 18.0-39.1 05/24/2017 6:05/24/2017 6: 46am Monocytes (%) (Auto) 10.7 % 4.4-11.3 05/24/2017 6:05/24/2017 6: 46am Eosinophils (%) (Auto) 2.3 % 0.0-6.0 05/24/2017 6:05/24/2017 6: 46am Basophils (%) (Auto) 0.6 % 0.0-1.0 05/24/2017 6:05/24/2017 6:46am IM GRANULOCYTES % 0.2 % 0.0-1.0 05/24/2017 6:05/24/2017 6:46am Neutrophils # (Auto) 3.0 2.1-6.9 05/24/2017 6:05/24/2017 6:46am Lymphocytes # (Auto) 1.4 1.0-3.2 05/24/2017 6:05/24/2017 6:46am Monocytes # (Auto) 0.6 0.2-0.8 05/24/2017 6:05/24/2017 6:46am Eosinophils # (Auto) 0.1 0.0-0.4 05/24/2017 6:05/24/2017 6:46am Basophils # (Auto) 0.0 0.0-0.1 05/24/2017 6:05/24/2017 6:46am Absolute Immature Granulocyte (auto 0.01 x10e3/uL 0-0.1 05/24/2017 6: 18am 05/24/2017 6:46am Prothrombin Time 18.2 seconds H 11.9-14.5 05/22/2017 7:55pm 05/22/2017 8 :39pm Prothromb Time International Ratio 1.43 05/22/2017 7:55pm 2017 8:39pm Oral Anticoagulant Therapy INR Values: 1. Low Intensity Therapy 1.5 - 2.0 2. Moderate Intensity Therapy 2.0 - 3.0 3. High Intensity Therapy(1) 2.5 - 3.5 4. High Intensity Therapy(2) 3.0 - 4.0 5. Panic Value INR > 5.0 Activated Partial Thromboplast Time 40.7 seconds H 23.8-35.5 05/22/2017 7 :55pm 05/22/2017 8:39pm Urine Color YELLOW YELLOW 05/22/2017 7:55pm 05/22/2017 8:38pm Urine Clarity CLEAR CLEAR 05/22/2017 7:55pm 05/22/2017 8:38pm Urine Specific [place] 1.010 1.010-1.025 05/22/2017 7:55pm 2017 8:38pm Urine pH 7 5 - 7 05/22/2017 7:55pm 05/22/2017 8:38pm Urine Leukocyte Esterase NEGATIVE NEGATIVE 05/22/2017 7:55pm 2017 8:38pm Urine Nitrite NEGATIVE NEGATIVE 05/22/2017 7:55pm 05/22/2017 8:38pm Urine Protein NEGATIVE NEGATIVE 05/22/2017 7:55pm 05/22/2017 8:38pm Urine Glucose (UA) NEGATIVE NEGATIVE 05/22/2017 7:55pm 05/22/2017 8: 38pm Urine Ketones NEGATIVE NEGATIVE 05/22/2017 7:55pm 05/22/2017 8:38pm Urine Urobilinogen 0.2 mg/dL 0.2 - 1 05/22/2017 7:55pm 05/22/2017 8: 38pm Urine Bilirubin NEGATIVE NEGATIVE 05/22/2017 7:55pm 05/22/2017 8: 38pm Urine Blood NEGATIVE NEGATIVE 05/22/2017 7:55pm 05/22/2017 8:38pm Urine WBC 0-5 /HPF 0-5 05/22/2017 7:55pm 05/22/2017 8:58pm Urine RBC 0-5 /HPF 0-5 05/22/2017 7:55pm 05/22/2017 8:58pm Urine Bacteria FEW /HPF NONE 05/22/2017 7:55pm 05/22/2017 8:58pm Urine Epithelial Cells FEW /LPF NONE 05/22/2017 7:55pm 05/22/2017 8: 58pm Urine Hyaline Casts 2-5 H 0-1 05/22/2017 7:55pm 05/22/2017 8:58pm Sodium Level 142 mmol/L 136-145 05/24/2017 6:18am 05/24/2017 7:13am Potassium Level 3.7 mmol/L 3.5-5.1 05/24/2017 6:18am 05/24/2017 7:13am Chloride Level 98 mmol/L 98-107 05/24/2017 6:18am 05/24/2017 7:13am Influenza Virus Types A,B Antigen NEGATIVE NEGATIVE 05/22/2017 7:55pm 05/22/2017 8:52pm Carbon Dioxide Level 35 mmol/L H -05/24/2017 6:18am 05/24/2017 7: 13am Anion Gap 12.7 mmol/L 8-05/24/2017 6:18am 05/24/2017 7:13am Blood Urea Nitrogen 23 mg/dL 7-05/24/2017 6:18am 05/24/2017 7:13am Creatinine 1.11 mg/dL 0.57-1.11 05/24/2017 6:18am 05/24/2017 7:13am BUN/Creatinine Ratio 21 6-05/24/2017 6:18am 05/24/2017 7:13am Estimat Glomerular Filtration Rate 48 ML/MIN L 60- 05/24/2017 6:18am 7:13am Ranges were taken from the National Kidney Disease Education Program and the National Kidney Foundation literature. Reference ranges: 60 or greater: Normal 16-59 (for 3 consecutive months): Chronic kidney disease 15 or less: Kidney failure Glucose Level 88 mg/dL 74-118 05/24/2017 6:18am 05/24/2017 7:13am Calcium Level 9.1 mg/dL 8.4-10.2 05/24/2017 6:18am 05/24/2017 7:13am Bedside Glucose 109 mg/dL 70-120 05/23/2017 7:50pm 05/23/2017 8:07pm Meter ID: [id number] Lactic Acid Level 10.3 MG/DL 4.5-19.8 05/22/2017 7:55pm 05/22/2017 8: 38pm Magnesium Level 2.3 MG/DL H 1.3-2.1 05/22/2017 7:55pm 05/22/2017 8:51pm Total Bilirubin 2.7 mg/dL H 0.2-1.2 05/23/2017 3:00am 05/23/2017 7:55am Aspartate Amino Transf (AST/SGOT) 24 IU/L 5-34 05/23/2017 3:00am 2017 7:55am Alanine Aminotransferase (ALT/SGPT) 12 IU/L 0-55 05/23/2017 3:00am 7:55am Total Protein 6.7 g/dL # 6.5-8.1 05/23/2017 3:00am 05/23/2017 7:55am Albumin 3.9 g/dL 3.5-5.0 05/23/2017 3:00am 05/23/2017 7:55am Globulin 2.8 g/dL 2.3-3.5 05/23/2017 3:00am 05/23/2017 7:55am Albumin/Globulin Ratio 1.4 0.8-2.0 05/23/2017 3:00am 05/23/2017 7: 55am Alkaline Phosphatase 82 IU/L 40-150 05/23/2017 3:00am 05/23/2017 7: 55am B-Type Natriuretic Peptide 669.5 pg/mL H 0-100 05/22/2017 7:55pm 2017 8:59pm Creatine Kinase 56 IU/L 29-168 05/23/2017 4:50pm 05/23/2017 5:26pm Creatine Kinase MB 2.30 ng/mL 0.00-5.00 05/23/2017 4:50pm 05/23/2017 5: 33pm Troponin I 0.042 ng/mL 0-0.300 05/23/2017 4:50pm 05/23/2017 5:33pm Amylase Level 45 U/L 25-125 05/22/2017 7:55pm 05/22/2017 8:51pm Lipase 62 U/L 8-78 05/22/2017 7:55pm 05/22/2017 8:51pm Thyroid Stimulating Hormone (TSH) 6.360 uIU/mL H 0.350-4.940 05/22/2017 7 :55pm 05/22/2017 9:02pm Microbiology Results Procedure Source Organism/Result Collection Date/Time Result Date/Time Result Status Blood Culture Blood NO GROWTH AFTER 24 HOURS 05/22/2017 7:55pm 05/23/2017 8:16pm Preliminary Procedures Procedure Status Date Provider(s) EGD BIOPSY SINGLE/MULTIPLE Completed 04/06/17 MURRAY BURTON MD Computed tomography of chest without contrast Active 04/11/17 DENISA ZHANG MD Computed tomography of brain without radiopaque contrast Active 05/22/17 BORIS LEACH MD Encounters Encounter Location Arrival/Admit Date Discharge/Depart Date Attending Provider Discharged Inpatient (obs) [facility] 05/23/17 12:59am 12:10pm DENISA ZHANG MD Discharged Inpatient [facility] 04/11/17 1:01am 04/14/17 11:20am DENISA ZHANG MD Registered Surgical Day Care [facility] 04/06/17 8:57am MURRAY BURTON MD
--- OUTSIDE RECORDS SUMMARY | 2017-07-20 16:04 | XMS REPORT ---
Author Author [facility] Address Unknown Phone Unavailable Care Team Providers Care Black Studies Professor Name Role Phone BORIS LEACH Unavailable Unavailable DENISA ZHANG Unavailable Unavailable Problems This patient has no known problems. Allergies, Adverse Reactions, Alerts This patient has no known allergies or adverse reactions. Medications This patient has no known medications. Results Test Description Test Time Test Comments Text Results Atomic Results Result Comments CT BRAIN WO [place] [address] Patient Name: NATALIA SULLIVAN MR #: [id number] : 1940 Age/Sex: 77/F Req # : [id number] Adm Physician: Ordered by: BORIS LEACH MD Report #: [id number] Location: ER Room/Bed: Procedure: [id number] CT/CT BRAIN WO Exam Date: 05/22/17 Exam Time: 2009 REPORT STATUS: Signed Examination: CT head without contrast Clinical Indication: Dizziness. Hypotension.. Technique: Transaxial noncontrast images from the skull base through the vertex were obtained. Sagittal and coronal reformatted images were done. Comparison: None. Findings: Scalp: No abnormalities. Bones: Intact. No fractures. No blastic or lytic lesions. Brain sulci: Appropriate for patient's age. Ventricles: Normal in size and configuration. No hydrocephalus. . Extra-axial space: No abnormalities. Parenchyma: There are subtle confluent areas of low- attenuation within subcortical and periventricular white matter, nonspecific, but could represent microvascular ischemic disease. No masses, hemorrhage, or acute vascular insults. Suprasellar region: No abnormalities. Craniocervical junction: The foramen magnum is patent. No Chiari one malformation. Incidental findings: Atherosclerotic calcification of the cavernous and supraclinoid internal carotid arteries. Impression: 1. No acute intracranial abnormality. 2. Mild chronic microvascular ischemic change. Signed by: Dr. Mary Mart M.D. on 05/22/2017 8:48 PM Dictated By: MARY PIERCE MD 47 Transcribed By: EAN on 2047 COPY TO: BORIS LEACH MD CHEST SINGLE (PORTABLE) [place] [address] Patient Name: NATALIA SULLIVAN MR #: [id number] : 1940 Age/Sex: 77/F Req #: [id number] Adm Physician: Ordered by: BORIS LEACH MD Report #: [id number] Location: ER Room/Bed: Procedure: [id number] DX/CHEST SINGLE (PORTABLE) Exam Date: 05/22/17 Exam Time: 2014 REPORT STATUS: Signed CHEST SINGLE ( PORTABLE), 05/22/2017 7:51 PM Technique: CHEST SINGLE (PORTABLE) Comparison: 04/10/2017 Clinical history: Cough, lightheadedness Findings : See Impression Impression: 1. Lines/Tubes: Stable left chest wall ICD. One of the leads (coronary sinus) is again retracted over the brachiocephalic vein. 2. Stable enlarged cardiac silhouette status post sternotomy with central vascular congestion. 3. Trace effusions. Signed by: Dr Joaquin Paz MD on 05/22/2017 9:16 PM Dictated By: JOAQUIN PAZ MD 15 Transcribed By: EAN on 05/22/172115 COPY TO: BORIS LEACH MD CT CHEST WO [place] [address] Patient Name: NATALIA SULLIVAN MR #: [id number] : 1940 Age/Sex: 77/F Req # : [id number] Adm Physician: DENISA ZHANG MD Ordered by: DENISA ZHANG MD Report #: [id number] Location: MED/SURG Room/Bed: [facility] _ Procedure: [id number] CT/CT CHEST WO Exam Date: 04/11/17 Exam Time: 1520 REPORT STATUS: Signed PROCEDURE: CT CHEST WITHOUT CONTRAST CT scan of the chest WITHOUT intravenous contrast, using standard protocol. TECHNIQUE: The chest was scanned utilizing a multidetector helical scanner from the apex to the level of the adrenal glands. No IV contrast was administered because of referring physician request. Coronal and sagittal multiplanar reformations were obtained. COMPARISON: None. INDICATIONS: SHORTNESS OF BREATH FINDINGS: Lines/tubes: None. Lungs and Airways: Advanced upper lobe predominant centrilobular and paraseptal emphysematous changes. Superimposed smooth interlobular septal thickening. Linear opacity in the lung bases, right greater than left compatible with subsegmental atelectasis. 4 mm nodule in the right lower lobe. No gross consolidation, honeycombing, or bronchiectasis. Trachea, mainstem bronchi, and central lobar and segmental bronchi are patent. Pleura: Trace bilateral pleural effusions no pneumothorax. Heart and mediastinum: Visualized portions of the thyroid gland appear normal. No ectasia or aneurysmal dilatation of the thoracic aorta. Atherosclerotic calcification of the thoracic aorta, great vessel origins, and habematolel coronary arteries. Postsurgical changes of coronary artery bypass and left subclavian approach implantable cardiac device placement. Leads lie within the right atrium and right ventricle. Moderate cardiomegaly with four-chamber cardiac enlargement. Pulmonary outflow tract is of normal caliber. Soft tissues: No focal soft tissue abnormalities. Abdomen: Visualized portions of the liver, spleen, and proximal stomach are notable only for enlargement of the hepatic veins and intrahepatic IVC likely indicative of elevated right heart pressures. Bones: No acute osseous abnormality. IMPRESSION: Moderate cardiomegaly with interstitial pulmonary edema and trace bilateral pleural effusions. Upper lobe predominant emphysema. Atherosclerotic vascular disease. 4 mm nodule in the right lower lobe should be assessed for stability by CT scan the chest in one year if the patient is at increased risk of malignancy. Dictated by: Zac Us M.D. on 04/11/2017 at 15:52 Electronically approved by: Zac Us M.D. on 04/11/2017 at 15:52 Dictated By: ZAC US MD 51 Transcribed By: CESAR on 04/11/171551 COPY TO: DENISA ZHANG MD CHEST [facility] (PORTABLE) [place] [address] Patient Name: NATALIA SULLIVAN MR #: [id number] : 1940 Age/Sex: 77/F Req #: [id number] Adm Physician: DENISA ZHANG MD Ordered by: WILLIAM WHARTON MD Report #: [id number] Location: MED/SURG Room/Bed: [facility] Procedure: [id number] DX/CHEST SINGLE (PORTABLE) Exam Date: 04/10/17 Exam Time: 2234 REPORT STATUS: Signed CHEST SINGLE (PORTABLE), 04/10/2017 10:33 PM Technique: CHEST SINGLE (PORTABLE) Comparison: None available. Clinical history: Shortness of breath Findings: See Impression Impression: 1. Lines/Tubes: Left chest wall 3 lead ICD. Note that one of the leads (coronary sinus lead?) is retracted over the expected brachiocephalic vein. 2. Moderately enlarged cardiac silhouette poststernotomy. 3. Central vascular congestion without overt edema. No significant effusion. Signed by: Dr Joaquin Paz MD on 11:02 PM Dictated By: JOAQUIN PAZ MD 01 Transcribed By: EAN on 04/10/172301 COPY TO: WILLIAM WHARTON MD
[2017-07-20] MEDS ORDERED: SODIUM CHLORIDE 0.9% 1000ML 1,000 ML IV STA (17:03)
--- NOTE | 2017-07-20 19:09 | Diagnostic Imaging Report ---
Portable chest x-ray CPT code 56713 INDICATION: Generalized weakness COMPARISON: Chest x-ray 05/22/2017 FINDINGS: Frontal view of the chest obtained at 1855 hours. Marked cardiomegaly is redemonstrated with cardiac bypass changes. Multiple pacemaker wires are stable in orientation. One lead remains over the innominate vein. No hilar lymphadenopathy. The lungs demonstrate diffuse hyperinflation. No mass or infiltrate. Central pulmonary vasculature is mild prominent but stable. There is trace blunting of the right lateral costophrenic angle, similar to previous exam. Left lateral costophrenic angle is normal. There is no pneumothorax. The osseous structures are stable. Median sternotomy wires are intact. Soft tissues are unremarkable. IMPRESSION: 1. Stable cardiomegaly and chronic vascular congestion. 2. Stable pulmonary hyperinflation consistent with COPD. Tiny right pleural effusion versus pleural thickening is stable. 3. No new cardiopulmonary process. Signed by: Dr. Damian Wright MD on 07/20/2017 7:05 PM
[2017-07-20 19:16] LABS: BASOPHILS # (AUTO) 0.1 (0.0-0.1); EOSINOPHILS # (AUTO) 0.1 (0.0-0.4); EOSINOPHILS % 1.9 % (0.0-6.0); LYMPHOCYTES # (AUTO) 1.2 (1.0-3.2); LYMPHOCYTES % 22.9 % (18.0-39.1); MEAN CORPUSCULAR HEMOGLOBIN 31.9 pg (28-32); MEAN CORPUSCULAR HGB CONC 31.6 g/dL (31-35); MEAN CORPUSCULAR VOLUME 101.1 fL (81-99); MONOCYTES # (AUTO) 0.4 (0.2-0.8); MONOCYTES % 7.6 % (4.4-11.3); NEUTROPHILS # (AUTO) 3.5 (2.1-6.9); NEUTROPHILS % 66.4 % (38.7-80.0); PLATELET COUNT 187 x10e3/uL (140-360); RED BLOOD COUNT 3.76 x10e6/uL (3.6-5.1)
[2017-07-20 19:43] LABS: ALBUMIN 4.5 g/dL (3.5-5.0); ALBUMIN/GLOBULIN RATIO 1.2 (0.8-2.0); ANION GAP 13.8 mmol/L (8-16); CALCIUM 9.7 mg/dL (8.4-10.2); CREATININE, SERUM 1.11 mg/dL (0.57-1.11); POTASSIUM 3.8 mmol/L (3.5-5.1)
[2017-07-20] MEDS ORDERED: SODIUM CHLORIDE 0.9% 1000ML 1,000 ML ONE (20:08)
[2017-07-20 20:22] LABS: ABG HCO3 34 mmol/L (23-28); ABG PCO2 48 mmHg (41-51); ABG PH 7.46 (7.31-7.41); ABG PO2 116 mmHg (80-105)
[2017-07-20 20:43] LABS: BILIRUBIN,URINE NEGATIVE (NEGATIVE); CLARITY,URINE CLEAR (CLEAR); COLOR,URINE YELLOW (YELLOW); KETONES,URINE NEGATIVE (NEGATIVE); LEUKOCYTE ESTERASE ,URINE NEGATIVE (NEGATIVE); NITRITE,URINE NEGATIVE (NEGATIVE); PROTEIN,URINE DIPSTICK NEGATIVE (NEGATIVE); URINE UROBILINOGEN 0.2 mg/dL (0.2 - 1)
[2017-07-20 20:56] LABS: EPITHELIAL CELLS,URINE FEW /LPF; RBC,URINE 0-5 /HPF (0-5); WBC,URINE (MAN) 0-5 /HPF (0-5)
[2017-07-20 21:30] VITALS: BP 138/84
== END 2017-07-20 21:51 | disposition home or self-care (01) ==
LOC: ER 16:45
DX: R53.1 Weakness (principal); R26.2 Difficulty in walking, not elsewhere classified; I10 Essential (primary) hypertension; I48.91 Unspecified atrial fibrillation; J44.9 Chronic obstructive pulmonary disease, unspecified; Z95.0 Presence of cardiac pacemaker; Z95.1 Presence of aortocoronary bypass graft
CPT/HCPCS: 36415; 36600; 71045; 80053; 81001; 82550; 82553; 82805; 83605; 83880; 84484; 85025; 93005; 99284; J7030

== ENCOUNTER → 2018-01-27 | Day surgery (SDC) | payer OTHER ==
[2018-01-23 10:21] LABS: BASOPHILS # (AUTO) 0.1 (0.0-0.1); BASOPHILS % 0.7 % (0.0-1.0); EOSINOPHILS # (AUTO) 0.1 (0.0-0.4); EOSINOPHILS % 0.8 % (0.0-6.0); HEMATOCRIT 40.3 % (34.2-44.1); LYMPHOCYTES # (AUTO) 1.2 (1.0-3.2); LYMPHOCYTES % 16.6 % (18.0-39.1); MEAN CORPUSCULAR HEMOGLOBIN 32.1 pg (28-32); MEAN CORPUSCULAR HGB CONC 32.3 g/dL (31-35); MEAN CORPUSCULAR VOLUME 99.5 fL (81-99); MONOCYTES # (AUTO) 0.6 (0.2-0.8); MONOCYTES % 8.1 % (4.4-11.3); NEUTROPHILS # (AUTO) 5.3 (2.1-6.9); NEUTROPHILS % 73.7 % (38.7-80.0); PLATELET COUNT 184 x10e3/uL (140-360); RED BLOOD COUNT 4.05 x10e6/uL (3.6-5.1); RED CELL DISTRIBUTION WIDTH 14.3 % (11.7-14.4)
[2018-01-23 10:28] LABS: INR 2.06; PROTHROMBIN TIME 24.8 seconds (11.9-14.5)
[2018-01-23 10:33] LABS: ALBUMIN 4.6 g/dL (3.5-5.0); ALBUMIN/GLOBULIN RATIO 1.4 (0.8-2.0); ANION GAP 17.1 mmol/L (8-16); CALCIUM 9.8 mg/dL (8.4-10.2); CHOL/HDL RATIO 2.3 (3.0-3.6); CREATININE, SERUM 1.29 mg/dL (0.57-1.11); POTASSIUM 4.1 mmol/L (3.5-5.1)
[2018-01-27] VITALS (11 sets, daily range): BP systolic 94–123; BP diastolic 61–87
[~2018-01-27] VITALS: Ht 162.6 cm; Wt 57.2 kg
[~2018-01-27] MED LIST changes: -ALLERGY RELIEF10 M1; +ALLERGY RELIEF10 M1 PO; +ALPRAZOLAM 0.5 MG TAB ONE; +ATORVASTATIN CA20 MG PO; +CALCIUM PO; +DIPHENHYDRAMINE HCL 25 MG CAP ONE; +FENTANYL CITRATE/PF 100MCG/2 ML INJ ONE; -FERROUS SULFAT325 MG; +FERROUS SULFAT325 MG PO; +HEPARIN SOD/SOD CHLORIDE 2,000 ML ONE; +IOPAMIDOL 370 MG/ML 200 ML INFUS..BTL INJ ONE; +LIDOCAINE HCL 2% LOCAL 20 ML VIAL ONE; +METOPROLOL SUCC25 MG PO; +MIDAZOLAM HCL 2 MG/2 ML VIAL ONE; -MULTI-VITAMIN1 EACH; +MULTI-VITAMIN1 EACH PO; -RANITIDINE HCL150 MG; +RANITIDINE HCL150 MG PO; +SODIUM CHLORIDE 0.9% 1000ML 1,000 ML ONE; +TICAGRELOR 90 MG TABLET ONE; +XARELTO15 MG PO
--- NOTE | 2018-03-27 07:56 | Operative Report ---
DATE OF PROCEDURE: January 27, 2018 INDICATIONS: Coronary artery disease, abnormal stress test. PROCEDURES PERFORMED 1. Left heart catheterization, selective coronary angiography. 2. Selective cannulation of 1 arterial and 1 venous bypass conduits. 3. Left ventriculogram. 4. Deployment of right groin Mynx closure device. COMPLICATIONS: None. RECOMMENDATIONS: Medical therapy. Access was obtained in the right femoral artery. A 6-Albanian sheath was placed. Diagnostic coronary angiogram revealed occluded left anterior descending artery. Bypasses of the left internal mammary to left anterior descending and saphenous vein to right coronary and obtuse marginal branch were widely patent. LV ejection fraction 50%. No gradient across the aortic valve on pullback. Right groin sheath was repaired using Mynx. Patient was discharged home the same day. Job#: [id number]
== END | disposition home or self-care (01) ==
LOC: CATH LAB 14:54
PROVIDERS: ATTEND Internal Medicine Interventional Cardiology
DX: I25.10 Atherosclerotic heart disease of native coronary artery without angina pectoris (principal); I50.9 Heart failure, unspecified; R94.39 Abnormal result of other cardiovascular function study; Z01.812 Encounter for preprocedural laboratory examination; Z79.02 Long term (current) use of antithrombotics/antiplatelets; Z95.810 Presence of automatic (implantable) cardiac defibrillator
CPT/HCPCS: 36415; 80053; 80061; 85025; 85610; 93459; C1769; J2001; J2250; J7030; Q9967

== ENCOUNTER 2018-02-27 05:52 | Observation (INO) | payer OTHER ==
[2018-02-24 14:52] LABS: BASOPHILS % 0.6 % (0.0-1.0); EOSINOPHILS # (AUTO) 0.1 (0.0-0.4); HEMATOCRIT 36.7 % (34.2-44.1); HEMOGLOBIN 11.6 g/dL (12.0-16.0); LYMPHOCYTES # (AUTO) 1.1 (1.0-3.2); LYMPHOCYTES % 17.7 % (18.0-39.1); MEAN CORPUSCULAR HEMOGLOBIN 32.9 pg (28-32); MEAN CORPUSCULAR HGB CONC 31.6 g/dL (31-35); MONOCYTES # (AUTO) 0.6 (0.2-0.8); MONOCYTES % 9.3 % (4.4-11.3); NEUTROPHILS # (AUTO) 4.5 (2.1-6.9); NEUTROPHILS % 70.1 % (38.7-80.0); PLATELET COUNT 156 x10e3/uL (140-360); RED BLOOD COUNT 3.53 x10e6/uL (3.6-5.1); RED CELL DISTRIBUTION WIDTH 15.3 % (11.7-14.4)
[2018-02-24 15:06] LABS: INR 1.76; PROTHROMBIN TIME 21.9 seconds (11.9-14.5)
[2018-02-24 15:16] LABS: ANION GAP 14.2 mmol/L (8-16); CALCIUM 9.3 mg/dL (8.4-10.2); CREATININE, SERUM 1.25 mg/dL (0.57-1.11); POTASSIUM 4.2 mmol/L (3.5-5.1)
[~2018-02-27] VITALS: Ht 162.6 cm; Wt 57.2 kg
[~2018-02-27 05:52] MED LIST changes: -ALPRAZOLAM 0.5 MG TAB ONE; -DIPHENHYDRAMINE HCL 25 MG CAP ONE; -FENTANYL CITRATE/PF 100MCG/2 ML INJ ONE; -HEPARIN SOD/SOD CHLORIDE 2,000 ML ONE; -IOPAMIDOL 370 MG/ML 200 ML INFUS..BTL INJ ONE; -LIDOCAINE HCL 2% LOCAL 20 ML VIAL ONE; -MIDAZOLAM HCL 2 MG/2 ML VIAL ONE; -SODIUM CHLORIDE 0.9% 1000ML 1,000 ML ONE; -TICAGRELOR 90 MG TABLET ONE
[2018-02-27 06:44] VITALS: BP 116/78
[2018-02-27] MEDS ORDERED: MIDAZOLAM HCL 2 MG/2 ML VIAL ONE ×3 (06:51→09:22)
[2018-02-27] MEDS ORDERED: BACITRACIN 50,000 UNIT VIAL ONE ×2 (06:51→09:19)
[2018-02-27] MEDS ORDERED: FENTANYL CITRATE/PF 100MCG/2 ML INJ ONE ×2 (06:51→09:13)
[2018-02-27] MEDS ORDERED: SODIUM CHLORIDE 0.9% 1000ML 1,000 ML ONE ×2 (06:52→09:19)
[2018-02-27] MEDS ORDERED: LIDOCAINE HCL 2% LOCAL 20 ML VIAL ONE (06:52)
[2018-02-27] MEDS ORDERED: SODIUM CHLORIDE 0.9% 500ML 1,000 ML ONE (06:52)
[2018-02-27] MEDS ORDERED: CEFAZOLIN SOD 1 GM VIAL ONE (07:10)
[2018-02-27] MEDS ORDERED: SODIUM CHLORIDE 0.9% 50ML 50 ML ONE (07:10)
[2018-02-27 12:10] VITALS: BP 109/58
[2018-02-27] MEDS ORDERED: FUROSEMIDE 40 MG TAB PO SCH (14:00)
--- NOTE | 2018-02-27 15:15 | Diagnostic Imaging Report ---
Examination: Single AP view of the chest. COMPARISON: July 20, 2017 INDICATION: Pacemaker wires replaced DISCUSSION: Lines/tubes: Multilevel cardiac pacemaker/ICD. Lungs: The lungs are well inflated and clear. No evidence of pneumonia or pulmonary edema. Pleura: No pleural effusion or pneumothorax. Heart and mediastinum: Heart is enlarged. Bones and soft tissues: No acute bony abnormalities. IMPRESSION: Multi lead cardiac pacemaker/AICD. No pneumothorax. Signed by: Dr. Diego Santos M.D. on 02/27/2018 3:12 PM
[2018-02-27 16:00] VITALS: BP 115/76
[2018-02-27] MEDS ORDERED: MORPHINE SULFATE 2 MG/ML SYR IV PRN (16:45)
[2018-02-27] MEDS: ACETAMINOPHEN/CODEINE 300MG - 30MG TAB PO PRN (16:49)
[2018-02-27] MEDS: FERROUS SULFATE 325 MG TAB PO SCH (17:13)
[2018-02-27] MEDS: POTASSIUM CHLORIDE 10MEQ EA PO SCH (17:13)
[2018-02-27] MEDS: OCUVITE PRESERVISION TABLET PO SCH (17:13)
[2018-02-27 19:32] VITALS: BP 137/84
[2018-02-27 20:00] VITALS: BP 137/84
[2018-02-27] MEDS ORDERED: ATORVASTATIN 20 MG TAB PO SCH (21:00)
[2018-02-28] VITALS: BP 131/79
[2018-02-28 04:00] VITALS: BP 128/84
[2018-02-28] MEDS ORDERED: LEVOTHYROXINE SODIUM 75 MCG TAB PO SCH (06:00)
[2018-02-28] MEDS: ACETAMINOPHEN/CODEINE 300MG - 30MG TAB PO PRN (06:03)
--- NOTE | 2018-02-28 06:10 | Diagnostic Imaging Report ---
EXAMINATION: CHEST SINGLE (PORTABLE) INDICATION: Pacemaker wires replaced. ^pacemaker wires replaced ^[id number] ^0500 ^Y COMPARISON: Chest radiograph 02/27/2018 FINDINGS: AP view TUBES and LINES: Left chest wall ICD. LUNGS: Lungs are well inflated. Interstitial opacities extending from the jammie, increased. PLEURA: Trace pleural effusions. No pneumothorax. HEART AND MEDIASTINUM: Stable cardiomegaly. BONES AND SOFT TISSUES: No acute osseous lesion. Median sternotomy wires. Soft tissues are unremarkable. UPPER ABDOMEN: No free air under the diaphragm. IMPRESSION: Mild interstitial edema and trace pleural effusions Stable cardiomegaly. Signed by: DR. Alexei Long MD on 02/28/2018 6:06 AM
[2018-02-28 07:25] VITALS: BP 123/63
[2018-02-28] MEDS: FERROUS SULFATE 325 MG TAB PO SCH (08:01)
[2018-02-28] MEDS: POTASSIUM CHLORIDE 10MEQ EA PO SCH (08:02)
[2018-02-28] MEDS: OCUVITE PRESERVISION TABLET PO SCH (08:02)
[2018-02-28] MEDS ORDERED: MULTIVITAMINS/MINERALS TAB PO SCH (09:00)
[2018-02-28] MEDS ORDERED: DIGOXIN 0.125 MG TAB PO SCH (09:00)
[2018-02-28] MEDS ORDERED: FOLIC ACID 1 MG TAB PO SCH (09:00)
[2018-02-28] MEDS ORDERED: METOPROLOL SUCCINATE 25 MG TAB XL PO SCH (09:00)
[2018-02-28] MEDS ORDERED: LORATADINE 10 MG TAB PO SCH (09:00)
--- NOTE | 2018-03-08 19:29 | Operative Report ---
DATE OF PROCEDURE: February 27, 2018 PREPROCEDURAL DIAGNOSES 1. LV lead malfunction with dislodgement into the brachiocephalic vein. 2. History of nonischemic cardiomyopathy with biventricular ICD upgrade performed several years ago. 3. Acute on chronic systolic and diastolic congestive heart failure, [place] [employer] functional class 3. 4. Severe chronic obstructive pulmonary disease. POSTPROCEDURAL DIAGNOSES 1. LV lead malfunction with dislodgement into the brachiocephalic vein. 2. History of nonischemic cardiomyopathy with biventricular ICD upgrade performed several years ago. 3. Acute on chronic systolic and diastolic congestive heart failure, [place] [employer] functional class 3. 4. Severe chronic obstructive pulmonary disease. PROCEDURES PERFORMED 1. Explant of left ventricular pace sense lead. 2. Insertion of new left ventricular pace sense lead in the mid lateral branch. 3. Coronary sinus venogram. PROCEDURE IN DETAIL: Ms. Echevarria was brought to the liaison inspection laboratory assistant here at [facility] in the fasting and nonsedated state. The left pectoral region was prepped and draped in a sterile manner. The pocket was reopened along the previous incision line with a combination of electrocautery, blunt and sharp dissection. The generator was removed from the pocket and the leads freed up from the underlying scar tissue. The left ventricular lead was explanted with gentle traction without complications. A left subclavian venogram was performed which demonstrated a pretty significant stenosis in that region. With the micropuncture needle and guidewire, deep subclavian stick was performed which we were able to place a wire into the IVC without complications. A 9.5-Cymro sheath was then placed over that guidewire through which an LV Guidant sheath and an AL2 catheter and 0.35 Wholey wire was used to cannulate the coronary sinus. A 6-Cymro tipped catheter was then used to perform a CS venogram and an adequate bilateral branch was visualized. A 130-degree inner catheter was utilized and the straight LV Quadripolar lead, Model #4671, Serial# [id number] was implanted into this branch without complications. Adequate pacing and sensing parameters were observed and the sheath was peeled away and lead secured to the underlying fascia with 0 silk. The pocket was irrigated with antibiotic saline and normal saline, and the original Ingevity MRI pacing leads and the RV leads were not disconnected from the device. The new lead was connected to the original [employer] generator, Model #G148, Serial# [id number]. The generator leads were then placed in the pocket and the pocket was secured to the underlying fascia with 0 silk. The pocket was closed in 3 layers with 2-0 Vicryl for the deep and subcutaneous layers and 4-0 Vicryl for the skin. Dermabond was placed for additional skin approximation. Device Data: The right ventricular lead and right atrial lead are within preoperative range of them now. The new left ventricular lead has a threshold of 0.7 volts and a pulse width of 0.5 milliseconds and a paced impedance of 519 ohms. The patient tolerated the procedure well and was transferred to the holding area in stable condition. CONCLUSION: 1. Successful explant of left ventricular pace sense lead. 2. Insertion of new left ventricular Quadripolar lead in the mid lateral branch. 3. No complications. Job#: [id number] [facility] MTDD
== END 2018-02-28 09:49 | disposition home or self-care (01) ==
LOC: CATH LAB 05:52 → PACU V 12:14 → IMCU 12:35
PROVIDERS: ADMIT Internal Medicine Clinical Cardiac Electrophysiology; ATTEND Internal Medicine Clinical Cardiac Electrophysiology
DX: T82.120A Displacement of cardiac electrode, initial encounter (principal); I50.22 Chronic systolic (congestive) heart failure; I48.2 Chronic atrial fibrillation; I49.5 Sick sinus syndrome; Z95.810 Presence of automatic (implantable) cardiac defibrillator; Z82.49 Family history of ischemic heart disease and other diseases of the circulatory system; J44.9 Chronic obstructive pulmonary disease, unspecified
CPT/HCPCS: 33224; 33244; 36415; 71045 ×2; 75820; 80048; 85025; 85610; 93005; C1769 ×2; C1887; C1900; G0378 ×2; J0690; J2001; J2250; J7030; J7040

== ENCOUNTER 2018-03-03 11:43 | Emergency (ER) | payer OTHER ==
[~2018-03-03] VITALS: Ht 162.6 cm; Wt 57.2 kg
[2018-03-03 13:27] LABS: BASOPHILS % 0.6 % (0.0-1.0); EOSINOPHILS # (AUTO) 0.1 (0.0-0.4); EOSINOPHILS % 1.7 % (0.0-6.0); HEMATOCRIT 35.3 % (34.2-44.1); MEAN CORPUSCULAR HEMOGLOBIN 32.4 pg (28-32); MEAN CORPUSCULAR HGB CONC 31.2 g/dL (31-35); MEAN CORPUSCULAR VOLUME 104.1 fL (81-99); MONOCYTES # (AUTO) 0.6 (0.2-0.8); NEUTROPHILS # (AUTO) 4.6 (2.1-6.9); NEUTROPHILS % 73.2 % (38.7-80.0); PLATELET COUNT 171 x10e3/uL (140-360); RED BLOOD COUNT 3.39 x10e6/uL (3.6-5.1)
[2018-03-03 13:36] LABS: INR 1.61; PROTHROMBIN TIME 20.5 seconds (11.9-14.5)
[2018-03-03 13:37] LABS: PARTIAL THROMBOPLASTIN TIME 41.3 seconds (23.8-35.5)
[2018-03-03 13:45] LABS: ALANINE AMINOTRANSFERASE 19 IU/L (0-55); ALBUMIN 3.8 g/dL (3.5-5.0); ALBUMIN/GLOBULIN RATIO 1.2 (0.8-2.0); ALKALINE PHOSPHATASE 96 IU/L (40-150); ANION GAP 14.2 mmol/L (8-16); BLOOD UREA NITROGEN 17 mg/dL (7-26); BUN/CREATININE RATIO 20 (6-25); CALCIUM 9.1 mg/dL (8.4-10.2); CARBON DIOXIDE 31 mmol/L (22-29); CHLORIDE 100 mmol/L (98-107); CREATINE KINASE 188 IU/L (29-168); CREATININE, SERUM 0.87 mg/dL (0.57-1.11); EST GLOMERULAR FILTRATION RATE > 60 ML/MIN (60-); GLUCOSE 95 mg/dL (74-118); MAGNESIUM 2.4 MG/DL (1.3-2.1); POTASSIUM 4.2 mmol/L (3.5-5.1); SODIUM 141 mmol/L (136-145)
--- NOTE | 2018-03-03 14:10 | Diagnostic Imaging Report ---
EXAMINATION: Head CT HISTORY: Status post fall, head trauma, patient on anticoagulation COMPARISON: Head CT on 05/22/2017 TECHNIQUE: Multidetector axial images were obtained without contrast from the foramen magnum to the vertex . The images were reconstructed using brain and bone algorithms. Thin section brain images were reformatted into coronal and sagittal planes. Intravenous contrast: None. Image quality: Motion/streaking artifact limits the evaluation of the skull base and posterior cranial fossa. Dose modulation, iterative reconstruction, and/or weight based adjustment of the mA/kV was utilized to reduce the radiation dose to as low as reasonably achievable. FINDINGS: Parenchyma: 1. Persistent minimal chronic microvascular ischemic changes, within normal limits for age. Otherwise no areas of abnormal density. 2. No mass or hemorrhage. No CT evidence of acute territorial vascular insult. Extra-axial spaces:No abnormal density. No extra-axial fluid collections Brain volume: Normal for age. Ventricles: No hydrocephalus or displacement. Arteries: No density suggestive of thrombus. Dural sinuses: No abnormal density. Extra-axial spaces: No abnormal density. Foramen magnum: No mass, Chiari malformation, or basilar invagination. Sella: No obvious mass. Paranasal/mastoid sinuses: Imaged portions unremarkable. Skull/Scalp: No lytic or blastic lesions. Midline forehead soft tissue swelling/hematoma without underlying fractures. IMPRESSION: 1. No acute post traumatic intracranial abnormalities, particularly no hemorrhage. 2. Midline forehead soft tissue swelling/hematoma without underlying fractures. Signed by: Dr. Vianey Rodriguez M.D. on 03/03/2018 2:06 PM
--- NOTE | 2018-03-03 14:13 | Diagnostic Imaging Report ---
EXAMINATION: PA and lateral views of the chest. COMPARISON: February 28, 2018 CLINICAL HISTORY: Fall DISCUSSION: Lines/tubes: 3-lead cardiac device. Lungs: Lungs are well inflated. No pneumonia or edema. Pleura: There is no pleural effusion or pneumothorax. Heart and mediastinum: Heart is enlarged. Bones and soft tissues: No acute bony abnormalities. IMPRESSION: Cardiomegaly without decompensation Signed by: Dr. Diego Santos M.D. on 03/03/2018 2:09 PM
--- NOTE | 2018-03-03 14:14 | Diagnostic Imaging Report ---
EXAMINATION: CT of the cervical spine HISTORY: Status post fall, head trauma, head and neck pain, patient on anticoagulation. COMPARISON: None available TECHNIQUE: Multidetector helical axial images were obtained without contrast from the foramen magnum to T1. The images were reconstructed using bone and soft tissue algorithms and were viewed in axial, sagittal and coronal planes. Dose modulation, iterative reconstruction, and/or weight based adjustment of the mA/kV was utilized to reduce the radiation dose to as low as reasonably achievable. FINDINGS: Alignment: Mild age-indeterminate likely chronic and degenerative anterolisthesis at C4-C5. Minimal reversal of the cervical lordosis from C4 to C6. Soft tissues: Metallic likely surgical clips in the left side of the neck, perhaps from prior surgery such as endarterectomy. Partially visualized right pleuroparenchymal scarring. Vertebrae: Normal height and density. No acute fracture, infection or neoplasm Degenerative changes: C1-C2: Normal C2-C3: Normal C3-C4: Facet arthrosis without stenoses C4-C5: Facet arthrosis without stenoses C5-C6: Disc osteophyte complex formation, uncovertebral and facet arthrosis. Minimal foraminal narrowing. C6-C7: Normal C7-T1: Normal IMPRESSION: 1. No acute cervical spine postraumatic abnormalities. 2. Mild chronic degenerative changes as described. Note: Acute postraumatic spinal cord, vascular or ligamentous injuries cannot adequately be assessed by CT. Signed by: Dr. Vianey Rodriguez M.D. on 03/03/2018 2:11 PM
--- NOTE | 2018-03-03 14:19 | Diagnostic Imaging Report ---
Exam: AP pelvis one view History: Pain Comparison: None. Findings: No fracture or malalignment. Joint spaces preserved. No abnormal soft tissue calcification or soft tissue defect. Impression: No acute osseous abnormality Signed by: Dr. Diego Santos M.D. on 03/03/2018 2:16 PM
== END 2018-03-03 17:14 | disposition home or self-care (01) ==
LOC: ER 11:43
DX: S00.81XA Abrasion of other part of head, initial encounter (principal); S20.212A Contusion of left front wall of thorax, initial encounter; W01.0XXA Fall on same level from slipping, tripping and stumbling without subsequent striking against object, initial encounter; Y92.008 Other place in unspecified non-institutional (private) residence as the place of occurrence of the external cause
CPT/HCPCS: 36415; 70450; 71046; 72125; 72170; 80053; 82550; 82553; 83735; 84484; 85025; 85610; 85730; 86850; 86900; 93005; 99283

== ENCOUNTER 2018-03-08 08:57 | Emergency (ER) | payer OTHER ==
[~2018-03-08] VITALS: Ht 165.1 cm; Wt 59.0 kg
[2018-03-08 09:33] LABS: BASOPHILS # (AUTO) 0.1 (0.0-0.1); EOSINOPHILS # (AUTO) 0.1 (0.0-0.4); EOSINOPHILS % 1.3 % (0.0-6.0); HEMOGLOBIN 10.3 g/dL (12.0-16.0); LYMPHOCYTES % 16.6 % (18.0-39.1); MEAN CORPUSCULAR HEMOGLOBIN 32.6 pg (28-32); MEAN CORPUSCULAR HGB CONC 31.2 g/dL (31-35); MEAN CORPUSCULAR VOLUME 104.4 fL (81-99); MONOCYTES # (AUTO) 0.5 (0.2-0.8); MONOCYTES % 8.7 % (4.4-11.3); NEUTROPHILS # (AUTO) 4.3 (2.1-6.9); NEUTROPHILS % 72.1 % (38.7-80.0); PLATELET COUNT 190 x10e3/uL (140-360); RED BLOOD COUNT 3.16 x10e6/uL (3.6-5.1); RED CELL DISTRIBUTION WIDTH 15.6 % (11.7-14.4)
--- NOTE | 2018-03-08 09:35 | Diagnostic Imaging Report ---
PROCEDURE: CHEST SINGLE (PORTABLE) COMPARISON: 03/03/2018. INDICATIONS: CONGESTIVE HEART FAILURE FINDINGS: Unchanged appearance of left subclavian approach implantable cardiac device body and leads. Lungs remain well-inflated and without focal consolidation. Blunting of the bilateral costophrenic sulci may reflect trace effusions or pleural thickening. Symmetric nodular opacities projecting over the lung bases compatible with nipple shadows. Unchanged enlargement of the cardiac silhouette with postsurgical changes of median sternotomy. No overt pulmonary edema. No acute osseous abnormality. CONCLUSION: Stable findings of cardiomegaly without overt pulmonary edema. Dictated by: Tom Baum M.D. on 03/08/2018 at 9:44 Electronically approved by: Tom Baum M.D. on 03/08/2018 at 9:44
[2018-03-08 09:46] LABS: ALBUMIN 3.9 g/dL (3.5-5.0); ALBUMIN/GLOBULIN RATIO 1.6 (0.8-2.0); ANION GAP 13.1 mmol/L (8-16); CALCIUM 8.5 mg/dL (8.4-10.2); CREATININE, SERUM 1.06 mg/dL (0.57-1.11); POTASSIUM 4.1 mmol/L (3.5-5.1)
[2018-03-08 09:51] LABS: INR 1.72; PROTHROMBIN TIME 21.5 seconds (11.9-14.5)
[2018-03-08 09:52] LABS: PARTIAL THROMBOPLASTIN TIME 44.3 seconds (23.8-35.5)
[2018-03-08 10:43] VITALS: BP 122/83
== END 2018-03-08 10:58 | disposition home or self-care (01) ==
LOC: ER 08:57
DX: G89.11 Acute pain due to trauma (principal); W18.39XA Other fall on same level, initial encounter; Z95.0 Presence of cardiac pacemaker; Z79.01 Long term (current) use of anticoagulants; I10 Essential (primary) hypertension; I51.9 Heart disease, unspecified
CPT/HCPCS: 36415; 71045; 80053; 85025; 85610; 85730; 93005; 99284

== ENCOUNTER → 2018-08-16 | Day surgery (SDC) | payer OTHER ==
[2018-08-15 13:34] LABS: BASOPHILS % 0.8 % (0.0-1.0); EOSINOPHILS # (AUTO) 0.1 (0.0-0.4); EOSINOPHILS % 1.4 % (0.0-6.0); HEMATOCRIT 38.8 % (34.2-44.1); HEMOGLOBIN 12.1 g/dL (12.0-16.0); LYMPHOCYTES # (AUTO) 0.9 (1.0-3.2); LYMPHOCYTES % 17.2 % (18.0-39.1); MEAN CORPUSCULAR HEMOGLOBIN 31.1 pg (28-32); MEAN CORPUSCULAR HGB CONC 31.2 g/dL (31-35); MEAN CORPUSCULAR VOLUME 99.7 fL (81-99); MONOCYTES # (AUTO) 0.4 (0.2-0.8); MONOCYTES % 8.2 % (4.4-11.3); NEUTROPHILS # (AUTO) 3.7 (2.1-6.9); NEUTROPHILS % 72.2 % (38.7-80.0); PLATELET COUNT 113 x10e3/uL (140-360); RED BLOOD COUNT 3.89 x10e6/uL (3.6-5.1); RED CELL DISTRIBUTION WIDTH 13.7 % (11.7-14.4)
--- NOTE | 2018-08-15 16:10 | Diagnostic Imaging Report ---
EXAMINATION: PA and lateral views of the chest. COMPARISON: None CLINICAL HISTORY: Preadmission, EGD DISCUSSION: Lines/tubes: 3-lead cardiac device. Sternotomy wires. Lungs: The lungs are well inflated and clear. No pneumonia or pulmonary edema. Pleura: No pleural effusion or pneumothorax. Heart and mediastinum: Cardiomegaly. Bones and soft tissues: No acute bony abnormalities. IMPRESSION: Cardiomegaly without decompensation Signed by: Dr. Diego Santos M.D. on 08/15/2018 4:07 PM
[~2018-08-16] MED LIST changes: +PROPOFOL IV EMULSION 10 MG/ML 50 ML VIAL ONE
--- OUTSIDE RECORDS SUMMARY | 2018-08-16 09:06 | XMS REPORT | Continuity of Care Document ---
Author Author [facility] Interface Address Unknown Phone Unavailable Problems Problem Status Onset Date Classification Date Reported Comments Source CHF Active Problem 07/21/2017 [facility] Dehydration Active Problem 07/21/2017 [facility] Renal insufficiency Active Problem 07/21/2017 [facility] Medications Medication Details Route Status Patient Instructions Ordering Provider Order Date Source Amiodarone Hcl 200 Mg Tablet, 1 Tab Oral Daily Active 05/22/2017 [facility] Calcuium , 600 Mg Twice A Day Active 04/14/2017 [facility] Albuterol Sulfate (Ventolin Hfa) 18 Gm Hfa.aer.ad Every 4 Hours Active [facility] Amiodarone Twice A Day Active [facility] Beta Carotene (Preservision Tablet) 1 Each Tab Twice A Day Active [facility] Digoxin 125 Mcg Tablet Daily Active [facility] Ferrous Sulfate 325 Mg Tablet Twice A Day Active [facility] Folic Acid 1 Mg Tablet Daily Active [facility] Furosemide 40 Mg Tablet Twice A Day Active [facility] Levothyroxine Sodium 75 Mcg Tablet Daily Active [facility] Loratadine (Allergy Relief) 10 Mg Tablet Daily Active [facility] Metoprolol Tartrate 25 Mg Tablet Daily Active [facility] Multivitamin (Multi-Vitamin Daily) 1 Each Tablet Daily Active [facility] Potassium Chloride Daily Active [facility] Potassium Chloride 10 Meq Tab.er.prt Before Meals Active [facility] Ranitidine Hcl 150 Mg Tablet Daily Active [facility] Simvastatin 40 Mg Tablet Bedtime Active [facility] Xarelto Daily Active [facility] Allergies, Adverse Reactions, Alerts Substance Category Reaction Severity Reaction type Status Date Reported Comments Source Naproxen RASH Unknown Allergy to Substance Active 04/06/2017 [facility] Immunizations Immunization Date Given Site Status Last Updated Comments Source Results Order Name Results Value Reference Range Date Interpretation Comments Source Automated urine sediment leukocyte count by microscopy (number/high power field) Automated urine sediment leukocyte count by microscopy (number/high power field) null 0 - 5 07/20/2017 [facility] Bacteria detection in urine sediment by light microscopy Bacteria detection in urine sediment by light microscopy NONE NONE 07/20/2017 [facility] Epithelial cells detection in urine sediment by light microscopy Epithelial cells detection in urine sediment by light microscopy FEW NONE 07/20/2017 [facility] Erythrocytes detection in urine sediment by light microscopy Erythrocytes detection in urine sediment by light microscopy null 0 - 5 07/20/2017 [facility] Specific gravity of Urine by Test strip Specific gravity of Urine by Test strip 1.015 1.010 - 1.025 07/20/2017 [facility] Urine clarity Urine clarity CLEAR CLEAR 07/20/2017 [facility] Urine color determination Urine color determination YELLOW YELLOW 07/20/2017 [facility] Urine erythrocytes detection Urine erythrocytes detection NEGATIVE NEGATIVE 07/20/2017 [facility] Urine glucose detection Urine glucose detection NEGATIVE NEGATIVE 07/20/2017 [facility] Urine ketones detection by automated test strip Urine ketones detection by automated test strip NEGATIVE NEGATIVE 07/20/2017 [facility] Urine leukocyte esterase detection by dipstick Urine leukocyte esterase detection by dipstick NEGATIVE NEGATIVE 07/20/2017 [facility] Urine nitrite detection Urine nitrite detection NEGATIVE NEGATIVE 07/20/2017 [facility] Urine pH measurement by automated test strip Urine pH measurement by automated test strip 6 5 - 7 07/20/2017 [facility] Urine protein measurement by test strip (mass/volume) Urine protein measurement by test strip (mass/volume) NEGATIVE NEGATIVE 07/20/2017 [facility] Urine total bilirubin measurement (mass/volume) Urine total bilirubin measurement (mass/volume) NEGATIVE NEGATIVE 07/20/2017 [facility] Urine urobilinogen measurement by test strip (mass/volume) Urine urobilinogen measurement by test strip (mass/volume) 0.2 0.2 - 1 07/20/2017 [facility] Arterial blood base excess by calculation Arterial blood base excess by calculation 10.0 -2 - 3 - 2 07/20/2017 [facility] Arterial blood bicarbonate measurement (moles/volume) Arterial blood bicarbonate measurement (moles/volume) 34 23 - 28 07/20/2017 [facility] Arterial blood oxygen saturation measurement Arterial blood oxygen saturation measurement 99.0 95 - 98 07/20/2017 [facility] Arterial blood pH measurement Arterial blood pH measurement 7.46 7.31 - 7.41 07/20/2017 [facility] Arterial Blood Partial Pressure CO2 48 41 - 51 07/20/2017 [facility] Arterial Blood Partial Pressure O2 116 80 - 105 07/20/2017 [facility] Lactic Acid Level 6.3 4.5 - 19.8 07/20/2017 [facility] Automated blood basophil count (count/volume) Automated blood basophil count (count/volume) 0.1 0.0 - 0.1 07/20/2017 [facility] Automated blood basophil count as percentage of total leukocytes Automated blood basophil count as percentage of total leukocytes 1.0 0.0 - 1.0 07/20/2017 [facility] Automated blood eosinophil count Automated blood eosinophil count 0.1 0.0 - 0.4 07/20/2017 [facility] Automated blood eosinophil count as percentage of total leukocytes Automated blood eosinophil count as percentage of total leukocytes 1.9 0.0 - 6.0 07/20/2017 [facility] Automated blood hematocrit (volume fraction) Automated blood hematocrit (volume fraction) 38.0 34.2 - 44.1 07/20/2017 [facility] Automated blood lymphocyte count as percentage ot total leukocytes Automated blood lymphocyte count as percentage ot total leukocytes 22.9 18.0 - 39.1 07/20/2017 [facility] Automated blood monocyte count as percentage of total leukocytes Automated blood monocyte count as percentage of total leukocytes 7.6 4.4 - 11.3 07/20/2017 [facility] Automated blood neutrophil count Automated blood neutrophil count 3.5 2.1 - 6.9 07/20/2017 [facility] Automated blood platelet count (count/volume) Automated blood platelet count (count/volume) 187 140 - 360 07/20/2017 [facility] Automated blood segmented neutrophil count as percentage of total leukocytes Automated blood segmented neutrophil count as percentage of total leukocytes 66.4 38.7 - 80.0 07/20/2017 [facility] Automated erythrocyte mean corpuscular hemoglobin (mass per erythrocyte) Automated erythrocyte mean corpuscular hemoglobin (mass per erythrocyte) 31.9 28 - 32 07/20/2017 [facility] Automated erythrocyte mean corpuscular hemoglobin concentration measurement (mass/volume) Automated erythrocyte mean corpuscular hemoglobin concentration measurement (mass/volume) 31.6 31 - 35 07/20/2017 [facility] Automated erythrocyte mean corpuscular volume Automated erythrocyte mean corpuscular volume 101.1 81 - 99 07/20/2017 [facility] Blood erythrocytes automated count (number/volume) Blood erythrocytes automated count (number/volume) 3.76 3.6 - 5.1 07/20/2017 [facility] Blood hemoglobin measurement (moles/volume) Blood hemoglobin measurement (moles/volume) 12.0 12.0 - 16.0 07/20/2017 [facility] Blood leukocytes automated count (number/volume) Blood leukocytes automated count (number/volume) 5.24 4.8 - 10.8 07/20/2017 [facility] Blood lymphocytes count (number/volume) Blood lymphocytes count (number/volume) 1.2 1.0 - 3.2 07/20/2017 [facility] Blood monocytes automated count (number/volume) Blood monocytes automated count (number/volume) 0.4 0.2 - 0.8 07/20/2017 [facility] Estimated glomerular filtration rate (GFR) determination Estimated glomerular filtration rate (GFR) determination 48 60 07/20/2017 [facility] Glucose measurement Glucose measurement 95 74 - 118 07/20/2017 [facility] Plasma globulin measurement (mass/volume) Plasma globulin measurement (mass/volume) 3.7 2.3 - 3.5 07/20/2017 [facility] Serum or plasma alanine aminotransferase measurement (enzymatic activity/volume) Serum or plasma alanine aminotransferase measurement (enzymatic activity/volume) 13 0 - 55 07/20/2017 [facility] Serum or plasma albumin measurement (mass/volume) Serum or plasma albumin measurement (mass/volume) 4.5 3.5 - 5.0 07/20/2017 [facility] Serum or plasma albumin/globulin mass ratio Serum or plasma albumin/globulin mass ratio 1.2 0.8 - 2.0 07/20/2017 [facility] Serum or plasma alkaline phosphatase measurement (enzymatic activity/volume) Serum or plasma alkaline phosphatase measurement (enzymatic activity/volume) 109 40 - 150 07/20/2017 [facility] Serum or plasma anion gap Serum or plasma anion gap 13.8 8 - 16 07/20/2017 [facility] Serum or plasma calcium measurement (mass/volume) Serum or plasma calcium measurement (mass/volume) 9.7 8.4 - 10.2 07/20/2017 [facility] Serum or plasma carbon dioxide, total measurement (moles/volume) Serum or plasma carbon dioxide, total measurement (moles/volume) 36 22 - 29 07/20/2017 [facility] Serum or plasma chloride measurement (moles/volume) Serum or plasma chloride measurement (moles/volume) 97 98 - 107 07/20/2017 [facility] Serum or plasma creatine kinase MB measurement (mass/volume) Serum or plasma creatine kinase MB measurement (mass/volume) 2.00 0 - 5.0 07/20/2017 [facility] Serum or plasma creatine kinase measurement (enzymatic activity/volume) Serum or plasma creatine kinase measurement (enzymatic activity/volume) 68 29 - 168 07/20/2017 [facility] Serum or plasma creatinine measurement (mass/volume) Serum or plasma creatinine measurement (mass/volume) 1.11 0.57 - 1.11 07/20/2017 [facility] Serum or plasma potassium measurement (moles/volume) Serum or plasma potassium measurement (moles/volume) 3.8 3.5 - 5.1 07/20/2017 [facility] Serum or plasma protein measurement (mass/volume) Serum or plasma protein measurement (mass/volume) 8.2 6.5 - 8.1 07/20/2017 [facility] Serum or plasma sodium measurement (moles/volume) Serum or plasma sodium measurement (moles/volume) 143 136 - 145 07/20/2017 [facility] Serum or plasma total bilirubin measurement (mass/volume) Serum or plasma total bilirubin measurement (mass/volume) 1.2 0.2 - 1.2 07/20/2017 [facility] Serum or plasma urea nitrogen measurement (mass/volume) Serum or plasma urea nitrogen measurement (mass/volume) 22 7 - 26 07/20/2017 [facility] Serum or plasma urea nitrogen/creatinine mass ratio Serum or plasma urea nitrogen/creatinine mass ratio 20 6 - 25 07/20/2017 [facility] Troponin I measurement by highly sensitive enzyme immunoassay Troponin I measurement by highly sensitive enzyme immunoassay 0.011 0 - 0.300 07/20/2017 [facility] Red Cell Distribution Width 14.0 11.7 - 14.4 07/20/2017 [facility] IM GRANULOCYTES % 0.2 0.0 - 1.0 07/20/2017 [facility] Absolute Immature Granulocyte (auto 0.01 0 - 0.1 07/20/2017 [facility] Aspartate Amino Transf (AST/SGOT) 29 5 - 34 07/20/2017 [facility] B-Type Natriuretic Peptide 328.9 0 - 100 07/20/2017 [facility] Capillary blood glucose measurement by glucometer (mass/volume) Capillary blood glucose measurement by glucometer (mass/volume) 109 70 - 120 05/23/2017 [facility] Activated partial thromboplastin time (aPTT) in platelet poor plasma bycoagulation assay Activated partial thromboplastin time (aPTT) in platelet poor plasma bycoagulation assay 40.7 23.8 - 35.5 05/22/2017 [facility] Blood culture Blood culture NO GROWTH AFTER 5 DAYS, FINAL REPORT 05/22/2017 [facility] Hyaline casts detection in urine sediment by light microscopy Hyaline casts detection in urine sediment by light microscopy null 0 - 1 05/22/2017 [facility] Influenza virus A and B antigen identification by immunofluorescence Influenza virus A and B antigen identification by immunofluorescence NEGATIVE NEGATIVE 05/22/2017 [facility] INR in Platelet poor plasma by Coagulation assay INR in Platelet poor plasma by Coagulation assay 1.43 05/22/2017 [facility] Prothrombin time (PT) in platelet poor plasma by coagulation assay Prothrombin time (PT) in platelet poor plasma by coagulation assay 18.2 11.9 - 14.5 05/22/2017 [facility] Serum or plasma amylase measurement (enzymatic activity/volume) Serum or plasma amylase measurement (enzymatic activity/volume) 45 25 - 125 05/22/2017 [facility] Serum or plasma lipase measurement (enzymatic activity/volume) Serum or plasma lipase measurement (enzymatic activity/volume) 62 8 - 78 05/22/2017 [facility] Serum or plasma magnesium measurement (mass/volume) Serum or plasma magnesium measurement (mass/volume) 2.3 1.3 - 2.1 05/22/2017 [facility] Serum or plasma thyrotropin measurement by detection limit <=0.005 miu/l (units/volume) Serum or plasma thyrotropin measurement by detection limit <=0.005 miu/l (units/volume) 6.360 0.350 - 4.940 05/22/2017 [facility] Vital Signs Vital Sign Value Date Comments Source Encounters Location Location Details Encounter Type Encounter Number Reason For Visit Attending Provider ADM Date DC Date Status Source Registered [facility] Day [facility] [id number] MURRAY BURTON MD 04/06/2017 [facility] Discharged Inpatient [id number] DENISA ZHANG MD 04/11/2017 04/14/2017 [facility] Discharged Inpatient (obs) [id number] DENISA ZHANG MD 05/23/2017 05/24/2017 [facility] Departed Emergency Room [id number] CHAR ALMONTE MD 07/20/2017 07/20/2017 [facility] Procedures Procedure Code Date Perfomer Comments Source Computed tomography of brain without radiopaque contrast [id number] 05/22/2017 HAYLEE [facility] Computed tomography of chest without contrast [id number] 04/11/2017 [facility] EGD BIOPSY SINGLE/MULTIPLE [id number] 04/06/2017 MICHEAL [facility]
[2018-08-16 12:50] VITALS: BP 101/78
== END | disposition home or self-care (01) ==
LOC: OR 09:03
PROVIDERS: ATTEND Internal Medicine Gastroenterology
DX: K25.3 Acute gastric ulcer without hemorrhage or perforation (principal); K29.70 Gastritis, unspecified, without bleeding; K21.9 Gastro-esophageal reflux disease without esophagitis; K44.9 Diaphragmatic hernia without obstruction or gangrene; I10 Essential (primary) hypertension; J44.9 Chronic obstructive pulmonary disease, unspecified; I25.810 Atherosclerosis of coronary artery bypass graft(s) without angina pectoris; I25.2 Old myocardial infarction; E78.00 Pure hypercholesterolemia, unspecified; F32.9 Major depressive disorder, single episode, unspecified; Z88.8 Allergy status to other drugs, medicaments and biological substances; Z01.810 Encounter for preprocedural cardiovascular examination; Z01.812 Encounter for preprocedural laboratory examination; Z01.818 Encounter for other preprocedural examination; Z79.02 Long term (current) use of antithrombotics/antiplatelets; Z99.81 Dependence on supplemental oxygen; Z68.1 Body mass index [BMI] 19.9 or less, adult; Z95.1 Presence of aortocoronary bypass graft; Z95.810 Presence of automatic (implantable) cardiac defibrillator; Z87.891 Personal history of nicotine dependence
CPT/HCPCS: 36415; 43239; 71046; 85025; 93005; J2704; 43235

== ENCOUNTER 2018-10-17 12:42 | Inpatient (IN) | payer OTHER ==
[~2018-10-17] VITALS: Ht 165.1 cm; Wt 52.8 kg
[2018-10-17] VITALS (11 sets, daily range): BP systolic 94–112; BP diastolic 69–95
[~2018-10-17 12:42] MED LIST changes: -PROPOFOL IV EMULSION 10 MG/ML 50 ML VIAL ONE
[2018-10-17 13:20] LABS: BASOPHILS # (AUTO) 0.1 (0.0-0.1); BASOPHILS % 0.7 % (0.0-1.0); EOSINOPHILS % 0.4 % (0.0-6.0); HEMATOCRIT 39.1 % (34.2-44.1); HEMOGLOBIN 12.2 g/dL (12.0-16.0); LYMPHOCYTES # (AUTO) 1.3 (1.0-3.2); LYMPHOCYTES % 17.7 % (18.0-39.1); MEAN CORPUSCULAR HGB CONC 31.2 g/dL (31-35); MEAN CORPUSCULAR VOLUME 99.5 fL (81-99); MONOCYTES # (AUTO) 0.8 (0.2-0.8); MONOCYTES % 10.8 % (4.4-11.3); NEUTROPHILS % 70.1 % (38.7-80.0); PLATELET COUNT 132 x10e3/uL (140-360); RED BLOOD COUNT 3.93 x10e6/uL (3.6-5.1); RED CELL DISTRIBUTION WIDTH 14.6 % (11.7-14.4)
[2018-10-17] MEDS ORDERED: AMIODARONE HCL INJ 150MG/3ML ONE (13:24)
[2018-10-17] MEDS ORDERED: AMIODARONE HCL 150MG 100 ML ONE (13:24)
[2018-10-17] MEDS ORDERED: AMIODARONE 900MG 500 ML IV ONE (13:24)
[2018-10-17] MEDS ORDERED: AMIODARONE HCL 150MG 100 ML IV SCH (13:30)
[2018-10-17] MEDS ORDERED: AMIODARONE HCL 360MG 200 ML IV SCH ×2 (13:30→18:00)
[2018-10-17 13:39] LABS: INR 1.4; PROTHROMBIN TIME 17.7 seconds (11.9-14.5)
[2018-10-17 13:40] LABS: PARTIAL THROMBOPLASTIN TIME 40.9 seconds (23.8-35.5)
[2018-10-17] MEDS: AMIODARONE 900MG 500 ML IV SCH ×5 (13:43→20:07)
[2018-10-17 13:50] LABS: ALBUMIN 4.5 g/dL (3.5-5.0); ALBUMIN/GLOBULIN RATIO 1.4 (0.8-2.0); CALCIUM 10.1 mg/dL (8.4-10.2); CREATININE, SERUM 0.94 mg/dL (0.57-1.11); MAGNESIUM 2.3 MG/DL (1.3-2.1)
--- NOTE | 2018-10-17 13:52 | Diagnostic Imaging Report ---
EXAM: CHEST SINGLE (PORTABLE), AP Portable DATE: 10/17/2018 Time stamp on exam: 1:13 PM INDICATION: Tachycardia COMPARISON: 08/15/2018 FINDINGS: LINES/TUBES: Triple lead cardiac device is intact. Sternotomy wire sutures are present. LUNGS: No consolidations. There is mild pulmonary vascular congestion that is new compared to prior study. PLEURA: No effusions or pneumothorax. HEART AND MEDIASTINUM: Moderate cardiomegaly. BONES AND SOFT TISSUES: No acute findings. IMPRESSION: Moderate cardiomegaly with pulmonary vascular congestion. Signed by: Dr. Evaristo Metz DO on 10/17/2018 1:49 PM
[2018-10-17 14:14] LABS: CREATINE KINASE MB 3.9 ng/mL (0-5.0)
[2018-10-17] MEDS ORDERED: SODIUM CHLORIDE 0.9% 500ML 500 ML IV ONE (14:15)
[2018-10-17] MEDS ORDERED: IOPAMIDOL 370 MG/ML 200 ML INFUS..BTL INJ ONE (15:03)
[2018-10-17] MEDS ORDERED: SODIUM CHLORIDE 0.9% 50ML 50 ML ONE (15:03)
[2018-10-17 15:05] LABS: BILIRUBIN,URINE NEGATIVE (NEGATIVE); CLARITY,URINE SL CLOUDY (CLEAR); KETONES,URINE NEGATIVE (NEGATIVE); LEUKOCYTE ESTERASE ,URINE NEGATIVE (NEGATIVE); NITRITE,URINE NEGATIVE (NEGATIVE); PROTEIN,URINE DIPSTICK 1+ (NEGATIVE); URINE UROBILINOGEN 1 mg/dL (0.2 - 1)
[2018-10-17 15:06] LABS: COLOR,URINE STRAW (YELLOW)
[2018-10-17 15:12] LABS: FREE THYROXINE INDEX 2.4598 (1.4-3.8); THYROID STIMULATING HORMONE 3.82 uIU/mL (0.350-4.940)
--- NOTE | 2018-10-17 15:24 | Diagnostic Imaging Report ---
CT CHEST WITH CONTRAST HISTORY: PE PROTOCOL, SOB/TACHY/POSITIVE D-DIMER COMPARISON: Chest radiograph October 17, 2018. TECHNIQUE: CT scan of the chest WITH intravenous contrast, using PE protocol. The chest was scanned utilizing a multidetector helical scanner from the lung apex through the level of the adrenal glands. Thin section reconstructions were obtained with special concentration on the pulmonary arteries. IV CONTRAST: 80 cc of Isovue-370. PROTOCOL: PE RADIATION DOSE: Total DLP: 249.62 mGy*cm Dose modulation, iterative reconstruction, and/or weight based adjustment of the mA/kV was utilized to reduce the radiation dose to as low as reasonably achievable. COMPLICATIONS: None DISCUSSION: An implanted multi lead left-sided cardiac device. Lungs: The lungs are hyperinflated with moderate diffuse emphysematous changes. Mild right basilar atelectasis versus scarring. At least 3 posterior peripheral nodules within the right upper lobe, the largest 6 mm in greatest dimension (series 3 image 44). No consolidative pneumonia or pulmonary edema. Vessels: No filling defects are identified within the pulmonary arteries to the segmental levels. The main pulmonary artery measures 2.4 cm in diameter, normal. The right and left pulmonary arteries are near the upper limits of normal to borderline increased in size. Reflux of contrast into the hepatic veins. Scattered atherosclerotic vascular calcifications, including the coronary arteries. Airways: Diffuse bronchial wall thickening. Pleura: No pleural effusion or pneumothorax. Heart and mediastinum: Severe global cardiomegaly. Abdomen: Limited evaluation of the upper abdomen. Partially visualized small volume of low-density fluid posterior to the liver. Lymph nodes: No pathologically enlarged lymph node. Bones: Multiple median sternotomy wires. Diffusely decreased mineralization of the osseous structures limits bone detail. Soft tissues: Unremarkable IMPRESSION: 1. No pulmonary embolus. 2. Severe global cardiomegaly with findings compatible with right heart failure. 3. Coronary atherosclerosis. 4. 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 5. Multiple right upper lobe pulmonary nodules measuring up to 6 mm. Recommend a follow-up surveillance CT of the chest in 3-6 months to assess assess for stability or resolution. Signed by: Dr. Prakash Emlore D.O., M.M.M. on 10/17/2018 3:20 PM
[2018-10-17 15:27] LABS: BACTERIA,URINE MODERATE /HPF; EPITHELIAL CELLS,URINE FEW /LPF
[2018-10-17] MEDS: FAMOTIDINE 20 MG/2 ML VIAL IV SCH ×2 (16:11→16:35)
[2018-10-17] MEDS ORDERED: METOPROLOL TARTRATE INJ 1 MG/ML VIAL IV NR (17:00)
[2018-10-17 17:36] LABS: CREATINE KINASE MB 4.1 ng/mL (0-5.0)
--- NOTE | 2018-10-17 18:04 | NUR ---
1530 - Patient arrived from ER to ICU, pt does not appear to be in any distress at this time. 1700- Patient complained of numbness to R arm and heavy/painful sensation to chest. Dr. Oshea office called to notify MD of situation but was unable to reach MD. Dr. Oliva contacted and gave orders for stat EKG, cardiac enzymes and metoprolol. Will continue to monitor patient.
--- NOTE | 2018-10-17 19:39 | NUR ---
C/O generalized pain and pain in right arm at IV site, IV site without redness or swelling and flushes easily. Family states that patient takes Tylenol #3 at home. Call placed to Dr Paul and orders received for Tylenol #3 PRN
[2018-10-17] MEDS: ACETAMINOPHEN/CODEINE 300MG - 30MG TAB PO PRN (19:45)
[2018-10-17] MEDS: METOPROLOL TARTRATE INJ 1 MG/ML VIAL IV PRN (20:46)
[2018-10-17] MEDS: IPRATROPIUM BROMIDE 0.02% 2.5 ML NEB NEB PRN (23:30)
[2018-10-17] MEDS: LEVALBUTEROL HCL SOLN NEBU 0.63 MG/3 ML NEB INH PRN (23:30)
[2018-10-18] VITALS (22 sets, daily range): BP systolic 76–107; BP diastolic 52–79
[2018-10-18 04:59] LABS: BASOPHILS % 0.2 % (0.0-1.0); EOSINOPHILS % 0.1 % (0.0-6.0); HEMATOCRIT 42.7 % (34.2-44.1); HEMOGLOBIN 13.5 g/dL (12.0-16.0); LYMPHOCYTES # (AUTO) 0.8 (1.0-3.2); LYMPHOCYTES % 6.6 % (18.0-39.1); MEAN CORPUSCULAR HEMOGLOBIN 31.8 pg (28-32); MEAN CORPUSCULAR HGB CONC 31.6 g/dL (31-35); MEAN CORPUSCULAR VOLUME 100.5 fL (81-99); MONOCYTES # (AUTO) 1.6 (0.2-0.8); MONOCYTES % 12.3 % (4.4-11.3); NEUTROPHILS # (AUTO) 10.2 (2.1-6.9); NEUTROPHILS % 80.1 % (38.7-80.0); PLATELET COUNT 141 x10e3/uL (140-360); RED BLOOD COUNT 4.25 x10e6/uL (3.6-5.1); RED CELL DISTRIBUTION WIDTH 14.8 % (11.7-14.4)
[2018-10-18 05:20] LABS: ALBUMIN/GLOBULIN RATIO 1.6 (0.8-2.0); ANION GAP 25.5 mmol/L (8-16); CALCIUM 9.5 mg/dL (8.4-10.2); CHOL/HDL RATIO 1.8 (3.0-3.6); CREATININE, SERUM 1.39 mg/dL (0.57-1.11)
[2018-10-18 05:29] LABS: CREATINE KINASE MB 4.2 ng/mL (0-5.0)
[2018-10-18 05:44] LABS: POTASSIUM 5.5 mmol/L (3.5-5.1)
--- NOTE | 2018-10-18 06:37 | NUR ---
Notified to about critical labs. Repeat lab ordered at this time.
--- NOTE | 2018-10-18 07:18 | NUR ---
Report given to oncoming nurse,walking round done. No issued noted.
[2018-10-18] MEDS ORDERED: ASPIRIN 81 MG CHEW TAB PO ONE (07:30)
[2018-10-18 07:34] LABS: CREATININE, SERUM 1.48 mg/dL (0.57-1.11)
[2018-10-18 07:42] LABS: POTASSIUM 5.2 mmol/L (3.5-5.1)
[2018-10-18 07:54] LABS: CREATINE KINASE MB 4.8 ng/mL (0-5.0)
[2018-10-18] MEDS: AMIODARONE 900MG 500 ML IV SCH (15:06)
--- NOTE | 2018-10-18 15:32 | NUR ---
Nutrition Intervention Note RD Recommendation(s) for Physician: -Continue current diet as ordered; diet texture per STEEL WELDER -Rec Ensure Enlive BID to increase protein calorie intake -Rec MVi w/minerals and vitamin C for healing of pressure ulcer Plan of Care: RD following, monitoring for tolerance and adequacy, ONS rec Nutrition reason for involvement: Diagnosis RD Assessment 10/18/2018 - 78yo F, who was admitted for Afib with RVR. Visited pt in the room. Pt reports poor appetite with nausea for many days. No vomiting episode noted. LBM 10/17. Pt doesnt have bottom denture; pt is agreeable with chopped diet. Pt denies any swallowing difficulty. Pt requires assistance with feeding. Unable to obtain weight hx. Reviewed old medical record and suspected some weight loss. Pending MBS and STEEL WELDER evaluation. Will continue to monitor and follow. Principal Problems/Diagnoses: A fib, CHF PMH: HTN, COPD, CHF, NH, A fib GI: abdomen flat, soft, non-tender, flatus present Skin: stage II pressure wound on buttock per RN Labs: (10/18) Na 135 L, K 5.2 H, Creatinine 1.48 H Meds: reviewed Ht: 65in Wt: 130lb 02/2018, 124.01lb 10/18/18 BMI: 20.6kg/m2 IBW: 125lbs Malnutrition Evaluation (10/18/2018) The patient meets criteria for MODERATE protein-calorie malnutrition. Energy intake: <75% of estimated energy requirements for >7 days Weight loss: Some weight loss, unknown onset Fat loss: Moderate clavicle protrusion Muscle loss: Moderate temporal depression Supporting Evidence: Fluid accumulation: unable to evaluate Functional Status: reduced Nutrition Prescription (Diet Order): cardiac diet Estimated Nutritional Needs: Calories: 1400 - 1680 kcal(25-30kcal/kg/d) Weight used: CBW Protein: 84 112g(1.5-2g/kg/d) Weight used: CBW Diet Adequacy: Not meeting calorie needs, Not meeting protein needs Diet Education Needs Assessment: Diet education indicated, but patient not appropriate for education at this time. Nutrition Care Level: mod Nutrition Diagnosis: Moderate malnutrition related to inadequate oral intake as evidenced by <75% of estimated energy requirements for >7 days and moderate muscle/ fat loss. Goal: Patient will meet 75-100% of estimated needs by follow up Progress: - Interventions: Modified diet, Commercial beverage, Multivitamin/mineral supplement therapy Monitoring/Evaluation: Total energy intake, Total protein intake, Modified diet, Liquid supplement, Weight change Signed: Lata Merritt MS, RD, LD
[2018-10-18] MEDS: ONDANSETRON HCL INJ 2MG/ML 2ML 2 MG/ML VIAL IV PRN ×2 (15:42→20:45)
[2018-10-18] MEDS: FAMOTIDINE 20 MG/2 ML VIAL IV SCH (15:42)
[2018-10-18] MEDS ORDERED: SOD POLYSTYRENE SULFONATE SUSP 15 GM/60 ML BTL PO ONE (17:30)
[2018-10-18 18:15] LABS: CREATINE KINASE MB 6.7 ng/mL (0-5.0)
[2018-10-18] MEDS: SODIUM BICARBONATE 8.4% 50 ML in SODIUM CHLORIDE 0.45% 1,000 ML IV SCH (18:29)
--- NOTE | 2018-10-18 21:55 | Diagnostic Imaging Report ---
EXAMINATION: CT of the abdomen and pelvis without contrast. TECHNIQUE: Helical CT images of the abdomen and pelvis were performed from the lung bases to the lesser trochanters. No intravenous contrast was given per renal stone protocol. Coronal and sagittal reformatted images were obtained.Dose modulation, iterative reconstruction, and/or weight based adjustment of the mA/kV was utilized to reduce the radiation dose to as low as reasonably achievable. COMPARISON: None. CLINICAL HISTORY:Liver failure DISCUSSION: ABSENCE OF INTRAVENOUS CONTRAST DECREASES SENSITIVITY FOR DETECTION OF FOCAL LESIONS AND VASCULAR PATHOLOGY. ABDOMEN/PELVIS: LOWER THORAX: Bilateral pleural effusions with lower lung atelectasis. Global cardiomegaly. HEPATOBILIARY:Cirrhotic morphology of the liver. Cholelithiasis. Contrast within the gallbladder. SPLEEN: No splenomegaly. PANCREAS: Limited evaluation. ADRENALS: Limited evaluation. KIDNEYS/URETERS: Contrast within the kidneys. Scattered cysts. No hydronephrosis. PELVIC ORGANS/BLADDER: Contrast within the bladder. PERITONEUM/RETROPERITONEUM: Mild ascites. LYMPH NODES: No intra-abdominal,retroperitoneal, pelvic or inguinal lymphadenopathy. VESSELS: Limited evaluation. Vascular calcifications. GI TRACT: No obstruction. Diverticulosis without definite inflammatory change. BONES AND SOFT TISSUES: Degenerative disease L5-S1 with lower lumbar facet arthrosis. IMPRESSION: Cirrhotic morphology of the liver with pleural effusions and mild ascites. Renal insufficiency with contrast in the kidneys and gallbladder. Signed by: Dr. Diego Santos M.D. on 10/18/2018 9:52 PM
--- NOTE | 2018-10-18 22:34 | Consultation ---
DATE OF CONSULTATION: 10/18/2018 Cardiology Consultation. HISTORY OF PRESENT ILLNESS: This is a 78-year-old woman with history of chronic systolic congestive heart failure, status post implantable cardioverter-defibrillator, paroxysmal atrial fibrillation, hypertension, hyperlipidemia, chronic obstructive pulmonary disease, hypothyroidism, who presented with tachycardia. The patient states that she has been progressively weak, short of breath and generalized unwell feeling. Upon arrival, she was noted to be tachycardic and was started on amiodarone infusion. She is currently feeling better in the intensive care unit and reports nausea. Denies any chest pain or typical angina. REVIEW OF SYSTEMS: A 12-point review of system was conducted, is negative otherwise above in the HPI. PAST MEDICAL HISTORY: As stated above in the HPI. PAST SURGICAL HISTORY: Implantable cardioverter-defibrillator. PAST FAMILY HISTORY: Noncontributory to present illness. ALLERGIES: NAPROXEN. MEDICATIONS: See medications reconciliation form. PHYSICAL EXAMINATION: VITAL SIGNS: Temperature is 98.0, heart rate is 70, respirations are 22, blood pressure is 89/57, oxygen saturation 99% on 2 L nasal cannula. GENERAL: She is a chronically ill-appearing elderly woman, lying comfortably in bed. HEENT: Head; normocephalic, atraumatic. Eyes, the extraocular muscles are intact. Conjunctivae are clear. NECK: No JVD. No bruits. CARDIOVASCULAR: She has regular rate and rhythm. No murmurs appreciated. Normal S1 and S2. LUNGS: Diminished breath sounds at bases. ABDOMEN: Soft, nontender, nondistended. EXTREMITIES: Trace edema. VASCULAR: Diminished pulses. SKIN: Mildly jaundice. NEUROLOGIC: No focal deficits noted. CARDIOVASCULAR MEDICATIONS: Reviewed. LABORATORY DATA: White blood cell count is 12, hemoglobin is 13.5. Potassium is 5.5, creatinine is 1.39, total bilirubin is 4. AST is 414, ALT is 316. Troponin I is minimally elevated at 0.483. Telemetry monitoring revealed atrioventricular paced rhythm. ICD interrogation showed a slow ventricular tachycardia. IMPRESSION: 1. Ventricular tachycardia. 2. Paroxysmal atrial fibrillation. 3. Abnormal liver function tests. 4. Lbtoi-dd-ypyctce kidney disease. 5. Hyperkalemia. 6. Elevated troponin. RECOMMENDATIONS: Continue current cardiovascular medications. Careful use of amiodarone given elevated LFTs. Her ICD settings have been changed for atrial tachycardia pacing at a lower ventricular rate to avoid ventricular tachycardia. Transition amiodarone to p.o. Continue to monitor LFT and daily labs. We will continue to monitor closely while in the intensive care unit. DO GENO Barone/VARUN /[id number]
[2018-10-18] MEDS: METOPROLOL TARTRATE 25 MG TAB PO SCH (23:07)
[2018-10-19] VITALS (27 sets, daily range): BP systolic 83–143; BP diastolic 52–85
[2018-10-19] MEDS: FAMOTIDINE 20 MG/2 ML VIAL IV SCH ×2 (02:59→16:45)
[2018-10-19 05:08] LABS: BASOPHILS % 0.2 % (0.0-1.0); EOSINOPHILS % 0.1 % (0.0-6.0); HEMOGLOBIN 11.4 g/dL (12.0-16.0); LYMPHOCYTES % 6.2 % (18.0-39.1); MEAN CORPUSCULAR HEMOGLOBIN 31.1 pg (28-32); MEAN CORPUSCULAR HGB CONC 30.8 g/dL (31-35); MEAN CORPUSCULAR VOLUME 100.8 fL (81-99); MONOCYTES # (AUTO) 1.7 (0.2-0.8); MONOCYTES % 9.9 % (4.4-11.3); NEUTROPHILS % 82.9 % (38.7-80.0); PLATELET COUNT 103 x10e3/uL (140-360); RED BLOOD COUNT 3.67 x10e6/uL (3.6-5.1)
[2018-10-19 05:25] LABS: CALCIUM 8.5 mg/dL (8.4-10.2)
[2018-10-19] MEDS: METOPROLOL TARTRATE 25 MG TAB PO SCH ×4 (06:00→23:55)
[2018-10-19] MEDS: SODIUM BICARBONATE 8.4% 50 ML in SODIUM CHLORIDE 0.45% 1,000 ML IV SCH (06:15)
--- NOTE | 2018-10-19 06:15 | NUR ---
Dr. Paul notified of critical Potassium level, elevated BUN and Cr and decreased Sodium. New orders given.
[2018-10-19 06:24] LABS: CREATININE, SERUM 2.61 mg/dL (0.57-1.11)
[2018-10-19] MEDS ORDERED: SOD POLYSTYRENE SULFONATE SUSP 15 GM/60 ML BTL PO NR (06:45)
[2018-10-19] MEDS ORDERED: SODIUM BICARBONATE 8.4% 100 ML in DEXTROSE 5% 1,000 ML IV SCH (07:30)
[2018-10-19] MEDS: LEVOTHYROXINE SODIUM 112 MCG TAB PO SCH (09:45)
[2018-10-19] MEDS: CEFTRIAXONE SOD 1 GM/NS 50 ML 50 ML IV SCH (10:00)
[2018-10-19] MEDS: MULTIVITAMINS/MINERALS TAB PO SCH (10:00)
[2018-10-19] MEDS: FOLIC ACID 1 MG TAB PO SCH (10:00)
[2018-10-19] MEDS: SODIUM BICARBONATE 8.4% 75 ML in SODIUM CHLORIDE 0.45% 1,000 ML IV SCH (11:27)
--- NOTE | 2018-10-19 11:40 | NUR ---
WOUND CARE CONSULTATION: THIS IS A 78 YEAR OLD FEMALE PATIENT ADMITTED TO [facility] FOR A FIB WITH RVR AND CHF. HEAD TO TOE SKIN ASSESSMENT PERFORMED. PATIENT HAS AN AREA OF 100% BLANCHABLE REDNESS NOTED TO THE SACRUM MEASURING [id number], SKIN INTACT. PATIENT HAS MULTIPLE SMALL BRUISES NOTED TO BILATERAL UPPER ARMS FROM VENOUS STICKS AND GENERALIZED MILD JAUNDICED SKIN. DR. ZHANG IS AWARE OF MILD GENERALIZED JAUNDICE. LABS: WBC16.90 BLOOD CULTURE = NEGATIVE URINE CULTURE = NEGATIVE MEDICATIONS: CEFTRIAXONE RECOMMENDATIONS: -CONTINUE ALTERNATING PRESSURE RELIEF MATTRESS. -APPLY BILATERAL HEEL PROTECTORS WITH PILLOW SUSPENSION. -TURN EVERY 2 HOURS AND PRN. -NURSING TO CLEAN SACRAL AREA OF BLANCHABLE REDNESS WITH NORMAL SALINE, PAT DRY, APPLY VENELEX AND THEN ALLEVYN FOAM DRESSING; CHANGE DAILY AND PRN. THANK YOU FOR THIS WOUND CARE CONSULTATION. Addendum: 10/19/18 at 1154 by Kamala Castillo RN Amended: Links added.
--- NOTE | 2018-10-19 12:13 | NUR ---
Dr. Roa paged for elevated K+ 5.5 waiting on return call for further orders. will continue to monitor
--- NOTE | 2018-10-19 12:33 | Progress Note ---
DATE: 10/19/2018 Cardiology Progress Note SUBJECTIVE: The patient feels very fatigued this morning. Not eating. Reports some nausea and shortness of breath. No typical angina. OBJECTIVE: VITAL SIGNS: Temperature is 97.9, heart rate is 70, respirations are 18, blood pressure is 97/64, and oxygen saturation is 100% on 2 L nasal cannula. GENERAL: She is a chronically ill-appearing, frail, elderly woman, lying comfortably in bed, no apparent distress. CARDIOVASCULAR: She is ventricular paced. No murmurs. LUNGS: Diminished breath sounds at bases. ABDOMEN: Soft, nontender, nondistended. EXTREMITIES: Trace edema. LABORATORY DATA: White blood cell count 16.9, hemoglobin 11.4, platelets 103. Creatinine 2.6, potassium 6, troponin is 0.663, AST is 414, total bilirubin is 4.1. IMAGING DATA: CT of the abdomen and pelvis shows cirrhotic morphology of the liver with pleural effusions and mild ascites. TELEMETRY: Monitoring revealed AV paced rhythm. IMPRESSION: 1. Ventricular tachycardia. 2. Paroxysmal atrial fibrillation. 3. Liver cirrhosis. 4. Acute on chronic kidney disease. 5. Hyperkalemia. 6. Elevated troponin. 7. Acute on chronic systolic congestive heart failure. 8. Malnutrition. 9. Frailty and debilitation. RECOMMENDATIONS: The patient has worsening multiorgan failure. I would discontinue her amiodarone and statin, given elevated liver function tests. Her CT of the abdomen showed no cholelithiasis with a cirrhotic liver morphology. We changed her ICD settings yesterday for her slow ventricular tachycardia. Consider gastroenterology consultation. Nephrology is consulted for fluid management to their team. Recommend obtaining a palliative care consult with possible transition to comfort care/hospice. Miah Oliva DO BM/MODL /[id number]
[2018-10-19] MEDS ORDERED: SOD POLYSTYRENE SULFONATE SUSP 15 GM/60 ML BTL PO ONE (12:45)
[2018-10-19] MEDS ORDERED: FUROSEMIDE INJ 10 MG/ML 4 ML VIAL IV ONE (12:45)
--- NOTE | 2018-10-19 15:03 | Consultation ---
DATE OF CONSULTATION: 10/19/2018 Renal Consultation REASON FOR CONSULTATION: Acute kidney injury. HISTORY OF PRESENT ILLNESS: A 78-year-old female with a history of congestive heart failure, paroxysmal atrial fibrillation, and COPD, presented to [facility] with chest pain and shortness of breath. The patient is a poor historian and history is taken from her as well as medical record. The patient states she had gradual onset of shortness of breath as well as chest discomfort. It got to a point where she was unable to tolerate it anymore and was brought to the emergency room. The patient was complaining of dizziness, pressure-like chest pain that was pounding in nature. In the emergency room, her EKG was concerning for slow ventricular tachycardia versus atrial fibrillation with aberrancy. The patient was started on amiodarone, Cardiology was consulted, CT of the chest was completed and the patient was admitted to the intensive care unit. The patient developed acute kidney injury, hyperkalemia which was treated medically and Nephrology consultation was called. The patient denies ever having history of kidney disease in the past, denies using any tayt-laa-xcodbnv medications including NSAIDs. REVIEW OF SYSTEMS: A 14-point review of systems completed. All systems negative other than in the HPI above. PAST MEDICAL HISTORY: 1. Congestive heart failure. 2. Coronary artery disease. 3. Atrial fibrillation. 4. Hypertension. 5. Dyslipidemia. 6. COPD. 7. Hypothyroidism. PAST SURGICAL HISTORY: 1. CABG. 2. Defibrillator. SOCIAL HISTORY: Quit tobacco. No alcohol. No IV drugs. FAMILY HISTORY: No family history of kidney disease. ALLERGIES: NAPROSYN. CURRENT MEDICATIONS: See list. On bicarb drip. PHYSICAL EXAMINATION: VITALS: Blood pressure 97/62, pulse 70, respiratory rate 14, temperature 97.9. GENERAL: No apparent distress, ill appearing. HEENT: Oropharynx is clear. No scleral icterus. No peripheral edema. NECK: Supple. Elevated jugular venous pressure. No lymphadenopathy. CHEST: Increased expiratory phase bilaterally. Distant breath sounds. Otherwise clear to auscultation. CARDIOVASCULAR: Regular rhythm. No murmurs or rubs appreciated. ABDOMEN: Soft. Positive bowel sounds. No tenderness. No rebound EXTREMITIES: No edema, no clubbing, no cyanosis. SKIN: Warm. : Holloway catheter with gracie colored urine. IMAGING DATA: CT of the abdomen and pelvis without contrast shows cirrhotic morphology of the liver with pleural effusions, mild ascites. Kidney shows scattered cysts. No hydronephrosis. Contrast is in the kidneys. CT of the chest with contrast on 10/17/2018 shows no pulmonary embolus. Severe global cardiomegaly with findings compatible with right heart failure. COPD with emphysema. Chronic bronchitis. Multiple right upper lobe pulmonary nodules. Chest x-ray, moderate cardiomegaly with pulmonary vascular congestion. LABORATORY DATA: White count 16.9, hemoglobin 11.4, hematocrit 37, platelets 103. Sodium 130, potassium 6, chloride 90, BUN 35, creatinine 2.61 and was 0.94 on 10/17/2018. Troponin 0.663. BNP 770. Urinalysis; 1+ protein, 2-5 hyaline casts. ASSESSMENT AND PLAN: 1. Acute kidney injury secondary to arterial underfilling as well as acute tubular necrosis and contrast-induced nephropathy. We will continue with IV fluids at a decreased rate and change fluids from hypotonic to isotonic due to her hyponatremia. No urgent indication for hemodialysis at this time, but we will recheck labs at 10:00 a.m. 2. Hyperkalemia secondary to above. The patient received Kayexalate. We will change to renal diet. 3. Congestive heart failure, compensated at this time, some vascular congestion. We will decrease IV fluids. May need Lasix. 4. Wide-complex tachycardia per Cardiology. 5. Chronic obstructive pulmonary disease with pulmonary nodules. Pulmonary Critical Care has been consulted. 6. The patient is critically ill. Prognosis is poor. MD MELECIO Crowe/VARUN /[id number]
--- NOTE | 2018-10-19 15:23 | Consultation ---
DATE OF CONSULTATION: 10/19/2018 Pulmonary Consultation REASON FOR CONSULT: History of COPD. HISTORY OF PRESENT ILLNESS: Ms. Echevarria is a 78-year-old female. She was admitted from the emergency room with palpitations and chest discomfort. The patient's heart rate was high. She was found to be in atrial fibrillation. She has a history of COPD, atrial fibrillation, macular degeneration, hiatal hernia. She is an ex-smoker, smoked for 45 years. She is on home oxygen. She denies any chest pain, nausea, vomiting. She was seen by Cardiology. REVIEW OF SYSTEMS: GENERAL: Denies any fever or chills. HEAD: Denies any head trauma. ENT: Denies any earaches. CVS: Denies any chest pain. The patient has palpitations. GI: Denies any nausea or vomiting. The rest of the review of systems are negative except as in HPI. PAST MEDICAL HISTORY: Hypertension, hyperlipidemia, atrial fibrillation. PAST SURGICAL HISTORY: Unknown. FAMILY AND SOCIAL HISTORY: She is an ex-smoker. She has COPD, on home oxygen. She sees Dr. Finley on a regular basis. PHYSICAL EXAMINATION: VITAL SIGNS: Temperature 97.9, pulse of 90, blood pressure 116/60, respiratory rate of 18, O2 saturation 95% on 2 L. HEENT: Head is atraumatic, normocephalic. NECK: Supple. CHEST: Clear to auscultation bilaterally. No wheezing. HEART: S1, S2 audible, appears regular. ABDOMEN: Soft. EXTREMITIES: No pedal edema. NEUROLOGIC: Awake, alert. LABORATORY DATA: White count of 16,000, hemoglobin 11.4, platelets 103. Chemistry; sodium 130, potassium 6.0, chloride 90, BUN 35, creatinine 2.61. Creatinine was 1.48 on the and on was 0.94 and now it is 2.6. She had a CTA of the chest in the emergency room, which showed no pulmonary embolus or cardiomegaly. Right upper lobe pulmonary nodule. She had CT abdomen and pelvis with cirrhotic morphology of liver with small pleural effusions. Chest x-ray showing pacemaker, chronic changes, no acute infiltrates, films reviewed. ASSESSMENT/PLAN: Ms. Echevarria is a 78-year-old female, came in with palpitations, was in atrial fibrillation. The patient has AICD, history of congestive heart failure, and chronic obstructive pulmonary disease. Current problem, 1. Acute kidney injury. Nephrology has been consulted. We will follow the recommendations. 2. From COPD standpoint, the patient is stable and not in any exacerbation. Continue the patient on the Atrovent nebulizer as ordered. 3. Atrial fibrillation. Cardiology has been consulted. We will follow the recommendation. 4. Chronic hypoxic respiratory failure. Continue oxygen as needed to keep the O2 saturation more than or equal to 92%. Thank you for this consult. MD GORGE Huntley/VARUN /[id number]
--- NOTE | 2018-10-19 15:31 | Diagnostic Imaging Report ---
Renal ultrasound. History: Renal insufficiency Discussion: Transverse and longitudinal images of the kidneys were obtained demonstrating normal renal sizes and echogenicities. There is no evidence of hydronephrosis, mass, or renal calculus. The right kidney measures 8.9 x 4.9 x 4.5 cm with maximal cortical thickness of 1.7 cm. The left kidney measures 8.4 x 5.1 x 4.1 cm with maximal cortical thickness of 1.5 cm. The urinary bladder shows a Holloway in place. There is free fluid around the liver and spleen. IMPRESSION: 1. No evidence of hydronephrosis with normal renal echogenicity. 2. Free fluid around the liver and spleen. Signed by: Dr. Evaristo Metz DO on 10/19/2018 3:28 PM
[2018-10-19] MEDS: ENOXAPARIN SOD INJ 40 MG/0.4 ML SYR SC SCH (16:45)
[2018-10-19] MEDS ORDERED: ATORVASTATIN 20 MG TAB PO SCH (21:00)
[2018-10-19 21:12] LABS: CREATININE,URINE RANDOM 22.77 mg/dL (47-110); TOTAL PROTEIN, URINE 37.1 mg/dL (1-14)
[2018-10-20] VITALS (26 sets, daily range): BP systolic 81–110; BP diastolic 56–88
[2018-10-20] MEDS: FAMOTIDINE 20 MG/2 ML VIAL IV SCH ×2 (03:25→15:48)
[2018-10-20] MEDS: SODIUM BICARBONATE 8.4% 75 ML in SODIUM CHLORIDE 0.45% 1,000 ML IV SCH ×2 (04:15→05:30)
[2018-10-20 05:23] LABS: BASOPHILS % 0.3 % (0.0-1.0); EOSINOPHILS # (AUTO) 0.1 (0.0-0.4); EOSINOPHILS % 0.4 % (0.0-6.0); HEMATOCRIT 33.7 % (34.2-44.1); LYMPHOCYTES # (AUTO) 0.9 (1.0-3.2); LYMPHOCYTES % 7.1 % (18.0-39.1); MEAN CORPUSCULAR HEMOGLOBIN 31.1 pg (28-32); MEAN CORPUSCULAR HGB CONC 32.6 g/dL (31-35); MEAN CORPUSCULAR VOLUME 95.2 fL (81-99); MONOCYTES % 8.5 % (4.4-11.3); NEUTROPHILS % 83.3 % (38.7-80.0); PLATELET COUNT 99 x10e3/uL (140-360); RED BLOOD COUNT 3.54 x10e6/uL (3.6-5.1); RED CELL DISTRIBUTION WIDTH 14.8 % (11.7-14.4)
[2018-10-20] MEDS: LEVOTHYROXINE SODIUM 112 MCG TAB PO SCH (05:31)
[2018-10-20] MEDS: METOPROLOL TARTRATE 25 MG TAB PO SCH ×3 (05:31→16:49)
[2018-10-20 05:44] LABS: ANION GAP 16.2 mmol/L (8-16); CALCIUM 7.8 mg/dL (8.4-10.2); CREATININE, SERUM 2.63 mg/dL (0.57-1.11)
[2018-10-20 05:48] LABS: POTASSIUM 3.2 mmol/L (3.5-5.1)
--- NOTE | 2018-10-20 06:17 | NUR ---
SPOKE TO REGARDING PT HAVING EPISODES OF AFIB 120-135 STARTING AROUND 0430 THIS AM, STATES WILL BE HERE TO SEE PATIENT SOMETIME THIS DAY. NO NEW ORDERS RECEIVED
[2018-10-20] MEDS: MULTIVITAMINS/MINERALS TAB PO SCH (08:50)
[2018-10-20] MEDS: CEFTRIAXONE SOD 1 GM/NS 50 ML 50 ML IV SCH (08:50)
[2018-10-20] MEDS: FOLIC ACID 1 MG TAB PO SCH (08:50)
[2018-10-20] MEDS: BALSAM PERU/CASTOR OIL 5 GM OINT...G. TP SCH (08:50)
[2018-10-20] MEDS ORDERED: POTASSIUM CHLORIDE 10MEQ EA PO ONE (10:15)
[2018-10-20] MEDS: LACTULOSE SYRUP 20 GM/30 ML UDC PO SCH ×2 (12:09→22:44)
[2018-10-20] MEDS: ENOXAPARIN SOD INJ 40 MG/0.4 ML SYR SC SCH (16:49)
--- NOTE | 2018-10-20 18:55 | Progress Note ---
DATE: 10/20/2018 SUBJECTIVE: Patient with mild confusion today. Reports her shortness of breath is at baseline. No chest pain. OBJECTIVE: VITAL SIGNS: Temperature is 98.4, heart rate is 101, respirations are 18, and oxygen saturation is 96% on 2 L nasal cannula, blood pressure is 93/61. GENERAL: She is a chronically ill-appearing elderly woman, lying comfortably in bed, no apparent distress. CARDIOVASCULAR: She is irregularly irregular, tachycardic. LUNGS: Diminished breath sounds at bases. ABDOMEN: Soft, nontender, nondistended. EXTREMITIES: No edema. LABORATORY DATA: Reviewed. Hemoglobin is 11, white blood cell count 11, creatinine 2.6. Potassium 3.2. Telemetry monitoring revealed atrial ventricular paced rhythm. IMPRESSION: 1. Ventricular tachycardia. 2. Paroxysmal atrial fibrillation. 3. Liver cirrhosis. 4. Acute on chronic kidney disease. 5. Elevated troponin. 6. Acute on chronic systolic congestive heart failure. 7. Implantable cardioverter-defibrillator. 8. Malnutrition. 9. Chronic debilitation. RECOMMENDATIONS: We will continue to follow recommendations of the consultants. I discontinue her amiodarone statin given her elevated liver function tests. Her CT abdomen shows cirrhotic liver morphology. We changed her ICD settings due to her slow ventricular tachycardia for her to get atrial tachycardia pacing at a lower rate. Consider Gastroenterology consultation. It is likely advisable to obtain a palliative care consult given her significant comorbid conditions and debilitation. DO GENO Barone/MODL /[id number]
[2018-10-21] VITALS (27 sets, daily range): BP systolic 85–112; BP diastolic 60–89
[2018-10-21] MEDS: FAMOTIDINE 20 MG/2 ML VIAL IV SCH ×2 (04:15→15:53)
[2018-10-21] MEDS: LEVALBUTEROL HCL SOLN NEBU 0.63 MG/3 ML NEB INH PRN (04:15)
[2018-10-21] MEDS: IPRATROPIUM BROMIDE 0.02% 2.5 ML NEB NEB PRN (04:15)
[2018-10-21 05:10] LABS: BASOPHILS % 0.4 % (0.0-1.0); EOSINOPHILS # (AUTO) 0.1 (0.0-0.4); EOSINOPHILS % 0.7 % (0.0-6.0); HEMATOCRIT 34.8 % (34.2-44.1); LYMPHOCYTES # (AUTO) 0.9 (1.0-3.2); MEAN CORPUSCULAR HGB CONC 31.6 g/dL (31-35); MONOCYTES # (AUTO) 0.9 (0.2-0.8); MONOCYTES % 9.9 % (4.4-11.3); NEUTROPHILS # (AUTO) 7.1 (2.1-6.9); NEUTROPHILS % 78.6 % (38.7-80.0); PLATELET COUNT 96 x10e3/uL (140-360); RED BLOOD COUNT 3.55 x10e6/uL (3.6-5.1); RED CELL DISTRIBUTION WIDTH 14.9 % (11.7-14.4)
[2018-10-21 05:25] LABS: ANION GAP 14.9 mmol/L (8-16); CALCIUM 8.3 mg/dL (8.4-10.2); CREATININE, SERUM 1.89 mg/dL (0.57-1.11); MAGNESIUM 1.9 MG/DL (1.3-2.1)
[2018-10-21 05:27] LABS: POTASSIUM 2.9 mmol/L (3.5-5.1)
[2018-10-21] MEDS: METOPROLOL TARTRATE 25 MG TAB PO SCH ×4 (06:00→18:00)
--- NOTE | 2018-10-21 06:13 | NUR ---
Dr. Molina notified of critical K 2.9. New orders received for IV potassium.
[2018-10-21] MEDS ORDERED: POTASSIUM CHLORIDE 20MEQ/100ML 200 ML IV ONE (06:15)
[2018-10-21] MEDS: LEVOTHYROXINE SODIUM 112 MCG TAB PO SCH (06:32)
[2018-10-21] MEDS: FOLIC ACID 1 MG TAB PO SCH ×2 (08:38→08:55)
[2018-10-21] MEDS: CEFTRIAXONE SOD 1 GM/NS 50 ML 50 ML IV SCH (08:38)
[2018-10-21] MEDS: BALSAM PERU/CASTOR OIL 5 GM OINT...G. TP SCH (08:38)
[2018-10-21] MEDS: MULTIVITAMINS/MINERALS TAB PO SCH ×2 (08:38→08:55)
[2018-10-21] MEDS: LACTULOSE SYRUP 20 GM/30 ML UDC PO SCH ×5 (08:38→21:56)
[2018-10-21] MEDS ORDERED: SODIUM CHLORIDE 0.9% 250ML 250 ML ONE (08:47)
--- NOTE | 2018-10-21 08:55 | NUR ---
patient disoriented to place and time this morning. refusing to take 9am po medications stating " I do not need them".
--- NOTE | 2018-10-21 10:00 | NUR ---
Dr. Finley updated with patient status, temperature 100.1bladder, vital signs, and poor appetite.
--- NOTE | 2018-10-21 12:48 | NUR ---
DR. MUSA, RENAL MD NOTIFIED OF LOW URINE OUTPUT. NO NEW ORDERS RECEIVED. UOP"30ML/HR SINCE 7AM. UOP DECREASED FROM RECENT SHIFTS.
--- NOTE | 2018-10-21 13:23 | NUR ---
dr. Paul at bedside. updated with patient status. new orders received.
[2018-10-21] MEDS ORDERED: DIGOXIN INJ 0.25 MG/ML 2 ML AMP IV NR (13:45)
[2018-10-21] MEDS ORDERED: DIGOXIN INJ 0.25 MG/ML 2 ML AMP ONE (13:58)
[2018-10-21 14:31] LABS: MAGNESIUM 1.9 MG/DL (1.3-2.1); PHOSPHORUS 2.7 MG/DL (2.3-4.7)
[2018-10-21 15:58] LABS: ANION GAP 16.4 mmol/L (8-16); CALCIUM 8.3 mg/dL (8.4-10.2); CREATININE, SERUM 1.72 mg/dL (0.57-1.11); POTASSIUM 3.4 mmol/L (3.5-5.1)
--- NOTE | 2018-10-21 15:58 | NUR ---
paged dr. lopez for new consult. dr. Molina rounded earlier with new orders with update of patient status. dr. gonzalez rounded earlier with new orders with update of patient status.
--- NOTE | 2018-10-21 16:41 | NUR ---
Nutrition Follow-up Note RD Recommendation(s) for Physician: The patient meets criteria for MODERATE protein-calorie malnutrition. - Rec liberalizing diet to regular to increase PO intake - Rec Ensure Enlive BID to increase protein calorie intake - Rec appetite stimulant to increase PO intake Plan of Care: RD following, monitoring for tolerance and adequacy, ONS rec Nutrition reason for involvement: Follow up RD Assessment 10/21 Discussed case with SHANNAN Gregg. Pt has had poor appetite, even with meal assistance. Family brought a 6pk Yris Ensure and pt only drank a little bit. RN requested for Ensure Yris from kitchen as pt didnt like the other flavors. Renal function has slightly improved. Phos WNL. K is repleted. Will discuss with MD if it is appropriate to liberalize her diet. Will continue to monitor and follow. 10/18/2018 - 78yo F, who was admitted for Afib with RVR. Visited pt in the room. Pt reports poor appetite with nausea for many days. No vomiting episode noted. LBM 10/17. Pt doesnt have bottom denture; pt is agreeable with chopped diet. Pt denies any swallowing difficulty. Pt requires assistance with feeding. Unable to obtain weight hx. Reviewed old medical record and suspected some weight loss. Pending MBS and CERTIFIED ANESTHESIOLOGIST ASSISTANT evaluation. Will continue to monitor and follow. Principal Problems/Diagnoses: A fib, CHF PMH: HTN, COPD, CHF, OR, A fib GI: abdomen flat, flatus present Skin: No pressure wound, per wound care Labs: (10/21)K 3.4 L, BUN 37 H, creatinine 1.72 H, Glucose 138 H, Ca 8.3 L (10/18) Na 135 L, K 5.2 H, Creatinine 1.48 H Meds: Pepcid, lactulose, synthroid Ht: 65in Wt: 130lb 02/2018, 124.01lb 10/18/18, 131.25lb 10/21 BMI: 20.6kg/m2 IBW: 125lbs Malnutrition Evaluation (10/18/2018) The patient meets criteria for MODERATE protein-calorie malnutrition. Energy intake: <75% of estimated energy requirements for >7 days Weight loss: Some weight loss, unknown onset Fat loss: Moderate clavicle protrusion Muscle loss: Moderate temporal depression Supporting Evidence: Fluid accumulation: unable to evaluate Functional Status: reduced Nutrition Prescription (Diet Order): renal diet Estimated Nutritional Needs: Calories: 1400 - 1680 kcal (25-30kcal/kg/d) Weight used: CBW Protein: 84 112g (1.5-2g/kg/d) Weight used: CBW Diet Adequacy: meeting calorie needs, meeting protein needs Diet Education Needs Assessment: Diet education indicated, but patient not appropriate for education at this time. Nutrition Care Level: mod Nutrition Diagnosis: Moderate malnutrition related to inadequate oral intake as evidenced by <75% of estimated energy requirements for >7 days and moderate muscle/ fat loss. Goal: Patient will meet 75-100% of estimated needs by follow up Progress: Not progressing Interventions: Modified diet, Commercial beverage, Prescription medications Monitoring/Evaluation: Total energy intake, Total protein intake, Modified diet, Liquid supplement, Weight change Signed: Lata Merritt MS, RD, LD
[2018-10-21] MEDS: ENOXAPARIN SOD INJ 40 MG/0.4 ML SYR SC SCH (16:56)
[2018-10-21] MEDS ORDERED: POTASSIUM CHLORIDE 20MEQ/100ML 100 ML IV ONE (17:00)
--- NOTE | 2018-10-21 17:09 | Progress Note ---
DATE: 10/21/2018 Cardiology Progress Note SUBJECTIVE: The patient is feeling better, more alert. Not hungry, not eating well. OBJECTIVE: VITAL SIGNS: Temperature is 97.8, heart rate is 107, respirations are 23, blood pressure is 87/76, oxygen saturation 96% on 2 L nasal cannula. GENERAL: She is chronically ill-appearing elderly woman, in no apparent distress. CARDIOVASCULAR: Irregularly irregular. Tachycardic. LUNGS: Diminished breath sounds at bases. ABDOMEN: Soft, nontender, and nondistended. EXTREMITIES: No edema. CARDIOVASCULAR MEDICATIONS: Reviewed. LABORATORY DATA: Hemoglobin at 11, creatinine is 1.89, potassium is 2.9. IMPRESSION: 1. Ventricular tachycardia. 2. Paroxysmal atrial fibrillation, currently with rapid ventricular response. 3. Liver cirrhosis. 4. Acute on chronic kidney disease, improved. 5. Elevated troponin. 6. Acute on chronic systolic congestive heart failure. 7. Implantable cardioverter-defibrillator. 8. Chronic debilitation and malnutrition. RECOMMENDATIONS: Replace potassium to keep level greater than 4. Check a magnesium, replace to a level greater than 2. Hold amiodarone. The patient is not receiving her metoprolol due to hypotension. We will give a small dose of digoxin intravenously. Continue to closely monitor her hemodynamics and telemetry. Poor overall prognosis and Palliative Care is recommended. DO GENO Barone/MODL /[id number]
[2018-10-21] MEDS: SODIUM BICARBONATE 8.4% 75 ML in SODIUM CHLORIDE 0.45% 1,000 ML IV SCH ×2 (18:54→23:31)
[2018-10-21] MEDS ORDERED: DIGOXIN INJ 0.25 MG/ML 2 ML AMP IV ONE (22:30)
[2018-10-22] VITALS (24 sets, daily range): BP systolic 82–123; BP diastolic 47–90
[2018-10-22] MEDS: FAMOTIDINE 20 MG/2 ML VIAL IV SCH ×2 (04:27→14:42)
[2018-10-22 04:50] LABS: MAGNESIUM 1.8 MG/DL (1.3-2.1); PHOSPHORUS 2.2 MG/DL (2.3-4.7)
[2018-10-22 05:19] LABS: BASOPHILS % 0.5 % (0.0-1.0); EOSINOPHILS # (AUTO) 0.1 (0.0-0.4); EOSINOPHILS % 0.9 % (0.0-6.0); HEMATOCRIT 36.1 % (34.2-44.1); HEMOGLOBIN 11.7 g/dL (12.0-16.0); LYMPHOCYTES # (AUTO) 0.8 (1.0-3.2); LYMPHOCYTES % 10.8 % (18.0-39.1); MEAN CORPUSCULAR HEMOGLOBIN 31.7 pg (28-32); MEAN CORPUSCULAR HGB CONC 32.4 g/dL (31-35); MEAN CORPUSCULAR VOLUME 97.8 fL (81-99); MONOCYTES # (AUTO) 1.1 (0.2-0.8); MONOCYTES % 13.9 % (4.4-11.3); NEUTROPHILS # (AUTO) 5.6 (2.1-6.9); NEUTROPHILS % 73.5 % (38.7-80.0); PLATELET COUNT 78 x10e3/uL (140-360); RED BLOOD COUNT 3.69 x10e6/uL (3.6-5.1); RED CELL DISTRIBUTION WIDTH 15.4 % (11.7-14.4)
[2018-10-22 05:31] LABS: ANION GAP 14.3 mmol/L (8-16); CALCIUM 8.3 mg/dL (8.4-10.2); CREATININE, SERUM 1.3 mg/dL (0.57-1.11); POTASSIUM 3.3 mmol/L (3.5-5.1)
[2018-10-22] MEDS ORDERED: POTASSIUM CHLORIDE 20MEQ/100ML 200 ML IV ONE (06:15)
[2018-10-22] MEDS: METOPROLOL TARTRATE 25 MG TAB PO SCH ×5 (06:36→23:47)
[2018-10-22] MEDS: LEVOTHYROXINE SODIUM 112 MCG TAB PO SCH (06:36)
[2018-10-22] MEDS: FOLIC ACID 1 MG TAB PO SCH (08:12)
[2018-10-22] MEDS: BALSAM PERU/CASTOR OIL 5 GM OINT...G. TP SCH (08:13)
[2018-10-22] MEDS: LACTULOSE SYRUP 20 GM/30 ML UDC PO SCH ×3 (08:13→22:03)
[2018-10-22] MEDS: MULTIVITAMINS/MINERALS TAB PO SCH (08:13)
[2018-10-22] MEDS: CEFTRIAXONE SOD 1 GM/NS 50 ML 50 ML IV SCH (09:15)
--- NOTE | 2018-10-22 16:03 | Consultation ---
DATE OF CONSULTATION: 10/22/2018 HISTORY OF PRESENT ILLNESS: A 78-year-old who has a history of COPD, history of atrial fibrillations, and hiatal hernia, presented to the hospital because of atrial fibrillation with RVR. The patient is currently in the ICU, did complain of some shortness of breath. The patient was also found to have elevation of liver function tests with the AST of 414, ALT of 316. On admission, bilirubin was 4.1. She had CAT scan abdomen and pelvis on admission, which showed cirrhosis of the liver with pleural effusions, mild ascites. She has also had thrombocytopenia with a platelet count of 78. She denies any history of alcohol abuse or history of hepatitis. PAST MEDICAL HISTORY: Significant for history of atrial fibrillation, history of hypertension, history of COPD. ALLERGIES: NONE. SOCIAL HISTORY: No alcohol use. CURRENT MEDICATIONS: Includin. Lactulose. 2. Multivitamin. 3. Folic acid. 4. Levothyroxine. 5. Metoprolol. 6. Pepcid. 7. Lovenox. 8. Ceftriaxone. 9. Atrovent. 10. Xopenex. 11. Zofran. 12. Metoprolol. PHYSICAL EXAMINATION: GENERAL: The patient is lying in bed, appears to be weak, but not in acute distress. VITAL SIGNS: Afebrile currently with stable vital signs. HEAD, EYES, EARS, NOSE, AND THROAT: Normocephalic, atraumatic. Sclerae are anicteric. NECK: Supple. HEART: Sounds regular. ABDOMEN: Soft. There is mild epigastric tenderness. There is no rebound or mass. Extremities: No cyanosis. No clubbing. LABORATORY VALUES: WBC of today 7.6, hemoglobin 11.67, platelet count is 78. AST was 414, ALT of 316 on admission with alkaline phosphatase of 153, bilirubin 4.1. IMPRESSION: 1. Cirrhosis. I suspect this has to do with congestive hepatopathy. 2. Congestive heart failure. 3. Atrial fibrillation with rapid ventricular response. RECOMMENDATION: Continue with current care and supportive care in the ICU. Follow labs. Rule out possibility of hepatitis including autoimmune. Maximize treatment for congestive heart failure. Adair Mccullough MD DHD/MODL /[id number] cc: MD Simba Bear MD
[2018-10-22] MEDS: ENOXAPARIN SOD INJ 40 MG/0.4 ML SYR SC SCH (17:20)
--- NOTE | 2018-10-22 17:23 | Progress Note ---
DATE: 10/22/2018 Cardiology Progress Note SUBJECTIVE: The patient feeling weak, tired today. No chest pain. Not eating well. OBJECTIVE: VITAL SIGNS: Temperature is 98.4, heart rate is 117, blood pressure is 101/79, oxygen saturation is 100% on 2 liters nasal cannula, and respirations are 20. GENERAL: She is a chronically ill-appearing elderly woman, lying comfortably in bed, appears mildly short of breath. CARDIOVASCULAR: She is irregularly irregular, tachycardic. LUNGS: Diminished breath sounds at the bases. ABDOMEN: Soft, nontender, and nondistended. EXTREMITIES: Trace edema. NEUROLOGIC: No focal deficits noted. Appears fatigued and lethargic. CARDIOVASCULAR MEDICATIONS: Reviewed. LABORATORY DATA: Reviewed. Hemoglobin 11.7. Creatinine is 1.3. Potassium is 3.3. TELEMETRY: Monitoring revealed atrial fibrillation with rapid ventricular response. IMPRESSION: 1. Ventricular tachycardia. 2. Paroxysmal atrial fibrillation, currently with rapid ventricular response. 3. Liver cirrhosis. 4. Acute on chronic kidney disease, improved. 5. Elevated troponins. 6. Acute on chronic systolic congestive heart failure. 7. Presence of implantable cardioverter-defibrillator. 8. Chronic debilitation and malnutrition. RECOMMENDATIONS: Replace potassium to keep level greater than 4. Check magnesium. Hold amiodarone. Her metoprolol has been intermittently held due to hypotension. Can give a dose of digoxin later today if potassium is corrected. Poor overall prognosis and recommend possible palliative care consultation. Miah Oliva DO BM/MODL /[id number]
--- NOTE | 2018-10-22 19:00 | NUR ---
Received patient from day nurse, patient assessed and stable.
[2018-10-22] MEDS: ACETAMINOPHEN/CODEINE 300MG - 30MG TAB PO PRN (20:43)
[2018-10-22] MEDS: SODIUM BICARBONATE 8.4% 75 ML in SODIUM CHLORIDE 0.45% 1,000 ML IV SCH (21:44)
[2018-10-23] VITALS (19 sets, daily range): BP systolic 89–138; BP diastolic 57–96
[2018-10-23] MEDS: FAMOTIDINE 20 MG/2 ML VIAL IV SCH ×2 (03:46→16:43)
[2018-10-23] MEDS: ACETAMINOPHEN/CODEINE 300MG - 30MG TAB PO PRN (04:05)
[2018-10-23 05:38] LABS: BASOPHILS # (AUTO) 0.1 (0.0-0.1); BASOPHILS % 0.7 % (0.0-1.0); EOSINOPHILS # (AUTO) 0.1 (0.0-0.4); EOSINOPHILS % 1.5 % (0.0-6.0); HEMATOCRIT 38.2 % (34.2-44.1); HEMOGLOBIN 11.8 g/dL (12.0-16.0); LYMPHOCYTES # (AUTO) 1.4 (1.0-3.2); LYMPHOCYTES % 14.7 % (18.0-39.1); MEAN CORPUSCULAR HGB CONC 30.9 g/dL (31-35); MEAN CORPUSCULAR VOLUME 100.3 fL (81-99); MONOCYTES # (AUTO) 1.5 (0.2-0.8); MONOCYTES % 15.5 % (4.4-11.3); NEUTROPHILS # (AUTO) 6.3 (2.1-6.9); NEUTROPHILS % 67.1 % (38.7-80.0); PLATELET COUNT 102 x10e3/uL (140-360); RED BLOOD COUNT 3.81 x10e6/uL (3.6-5.1); RED CELL DISTRIBUTION WIDTH 15.8 % (11.7-14.4)
[2018-10-23 05:59] LABS: ALBUMIN 3.5 g/dL (3.5-5.0); ALBUMIN/GLOBULIN RATIO 1.2 (0.8-2.0); ANION GAP 12.6 mmol/L (8-16); CALCIUM 8.5 mg/dL (8.4-10.2); CREATININE, SERUM 1.03 mg/dL (0.57-1.11); POTASSIUM 3.6 mmol/L (3.5-5.1)
[2018-10-23] MEDS: METOPROLOL TARTRATE 25 MG TAB PO SCH ×4 (06:55→23:15)
[2018-10-23] MEDS: LEVOTHYROXINE SODIUM 112 MCG TAB PO SCH (06:55)
[2018-10-23] MEDS: MULTIVITAMINS/MINERALS TAB PO SCH (10:00)
[2018-10-23] MEDS: LACTULOSE SYRUP 20 GM/30 ML UDC PO SCH ×4 (10:00→20:14)
[2018-10-23] MEDS: FOLIC ACID 1 MG TAB PO SCH (10:00)
[2018-10-23] MEDS: CEFTRIAXONE SOD 1 GM/NS 50 ML 50 ML IV SCH (10:50)
[2018-10-23] MEDS ORDERED: DIGOXIN INJ 0.25 MG/ML 2 ML AMP IV ONE (11:00)
[2018-10-23] MEDS: BALSAM PERU/CASTOR OIL 5 GM OINT...G. TP SCH (11:27)
--- NOTE | 2018-10-23 13:32 | Progress Note ---
DATE: 10/23/2018 Cardiology Progress Note SUBJECTIVE: The patient is feeling tired, weak, and short of breath. OBJECTIVE: VITAL SIGNS: Temperature is 98.1, heart rate is 110, respirations are 19, blood pressure is 124/76, ox saturation 96% on 2 L nasal cannula. GENERAL: She is a chronically ill-appearing woman in no apparent distress. CARDIOVASCULAR: She is irregularly irregular, tachycardic. LUNGS: Diminished breath sounds at bases. ABDOMEN: Soft, nontender, nondistended. EXTREMITIES: Trace edema. CARDIOVASCULAR MEDICATIONS: Reviewed. LABORATORY DATA: Reviewed. Hemoglobin 11.8. Creatinine is 1.03. ALT is 1117, AST is 654, total bilirubin is 3.5. IMPRESSION: 1. Acute on chronic systolic congestive heart failure. 2. Paroxysmal atrial fibrillation. 3. History of ventricular tachycardia. 4. Liver cirrhosis. 5. Elevated troponin. 6. Presence of implantable cardioverter-defibrillator. 7. Chronic debilitation and malnutrition. RECOMMENDATIONS: We will give additional dose of digoxin today for better rate control. Continue to dose metoprolol with holding parameters. Correct electrolytes. The patient has an overall poor prognosis with multiorgan failure. We will try to optimize her heart failure. Recommend decreasing intravenous fluids as her creatinine has improved. I would like to give diuretics. I will defer to Nephrology. Miah Oliva DO BM/MODL /[id number]
[2018-10-23] MEDS: ENOXAPARIN SOD INJ 40 MG/0.4 ML SYR SC SCH (16:43)
[2018-10-23] MEDS: IPRATROPIUM BROMIDE 0.02% 2.5 ML NEB NEB PRN (19:35)
[2018-10-23] MEDS: LEVALBUTEROL HCL SOLN NEBU 0.63 MG/3 ML NEB INH PRN (19:35)
[2018-10-24] VITALS (19 sets, daily range): BP systolic 96–138; BP diastolic 60–102
[2018-10-24] MEDS: FAMOTIDINE 20 MG/2 ML VIAL IV SCH ×2 (03:23→18:40)
[2018-10-24 05:15] LABS: INR 1.32
[2018-10-24 05:28] LABS: ALANINE AMINOTRANSFERASE 823 IU/L (0-55); ALBUMIN 3.2 g/dL (3.5-5.0); ALBUMIN/GLOBULIN RATIO 1.3 (0.8-2.0); ALKALINE PHOSPHATASE 144 IU/L (40-150); ANION GAP 11.7 mmol/L (8-16); BLOOD UREA NITROGEN 20 mg/dL (7-26); BUN/CREATININE RATIO 22 (6-25); CALCIUM 8.4 mg/dL (8.4-10.2); CARBON DIOXIDE 34 mmol/L (22-29); CHLORIDE 97 mmol/L (98-107); CREATININE, SERUM 0.89 mg/dL (0.57-1.11); EST GLOMERULAR FILTRATION RATE > 60 ML/MIN (60-); GLUCOSE 135 mg/dL (74-118); POTASSIUM 3.7 mmol/L (3.5-5.1); SODIUM 139 mmol/L (136-145)
[2018-10-24] MEDS: METOPROLOL TARTRATE 25 MG TAB PO SCH (06:00)
[2018-10-24] MEDS: LEVOTHYROXINE SODIUM 112 MCG TAB PO SCH (06:08)
[2018-10-24] MEDS: FOLIC ACID 1 MG TAB PO SCH (08:24)
[2018-10-24] MEDS: MULTIVITAMINS/MINERALS TAB PO SCH (08:24)
[2018-10-24] MEDS: LACTULOSE SYRUP 20 GM/30 ML UDC PO SCH ×3 (08:24→20:17)
[2018-10-24] MEDS: POTASSIUM CHLORIDE 10MEQ EA PO SCH (08:25)
[2018-10-24] MEDS: FUROSEMIDE INJ 10 MG/ML 2 ML VIAL IV SCH (09:14)
[2018-10-24] MEDS: CEFTRIAXONE SOD 1 GM/NS 50 ML 50 ML IV SCH (09:14)
[2018-10-24] MEDS: BALSAM PERU/CASTOR OIL 5 GM OINT...G. TP SCH (09:14)
[2018-10-24] MEDS ORDERED: METOPROLOL SUCCINATE 50 MG TAB XL PO ONE (09:30)
--- NOTE | 2018-10-24 09:42 | Progress Note ---
DATE: 10/24/2018 Cardiology Progress Note SUBJECTIVE: Ms. Echevarria continues to remain weak. She has occasional palpitations. No appetite. PHYSICAL EXAMINATION: VITAL SIGNS: Afebrile, heart rate 80, blood pressure 108/78, O2 sats 99% on 2 L nasal cannula. CARDIOVASCULAR: Irregular rhythm, tachycardic. LUNGS: Decreased breath sounds. Occasional rhonchi. LABORATORY DATA: Creatinine has improved to 0.9. Transaminases remain elevated. TELEMETRY: Telemetry shows paced rhythm. IMAGING: Chest x-ray is pending. ASSESSMENT: 1. [id number] systolic heart failure. 2. Paroxysmal atrial fibrillation. RECOMMENDATIONS: Anticoagulation with warfarin is appropriate. I will start this medication and closely monitor INR. Echocardiogram will be evaluated. Pacemaker defibrillator will be rechecked for ongoing tracking of supraventricular rhythm. Overall, prognosis is guarded. MD JANES Dickey/VARUN /[id number]
--- NOTE | 2018-10-24 13:12 | NUR ---
DISCUSSED IN BARRIER ROUNDS, PT HAS MED SURG ORDERS, PT IS CONFUSED, ELEVATED HEART RATE, DOCTOR ZHANG SPOKE WITH FAMILY ABOUT OPTION BUT WANTS TO WAIT FOR ANOTHER DISCUSSION TOMORROW.
[2018-10-24] MEDS ORDERED: ONDANSETRON HCL 4 MG ORAL DISINTEGRATING TAB PO PRN (15:15)
[2018-10-24] MEDS: WARFARIN SOD 5 MG TAB PO SCH (18:40)
[2018-10-24] MEDS: METOPROLOL SUCCINATE 50 MG TAB XL PO SCH (18:41)
[2018-10-24] MEDS: ENOXAPARIN SOD INJ 40 MG/0.4 ML SYR SC SCH (18:41)
[2018-10-24] MEDS: LISINOPRIL 10 MG TAB PO SCH (20:17)
[2018-10-25 01:00] VITALS: BP 124/85
[2018-10-25] MEDS: FAMOTIDINE 20 MG/2 ML VIAL IV SCH ×2 (03:16→17:29)
[2018-10-25 05:20] LABS: INR 1.22
[2018-10-25] MEDS: LEVOTHYROXINE SODIUM 112 MCG TAB PO SCH (05:55)
[2018-10-25 07:17] VITALS: BP 93/82
[2018-10-25 07:22] VITALS: BP 93/82
[2018-10-25] MEDS: FOLIC ACID 1 MG TAB PO SCH (08:09)
[2018-10-25] MEDS: LACTULOSE SYRUP 20 GM/30 ML UDC PO SCH ×3 (08:09→20:34)
[2018-10-25] MEDS: FUROSEMIDE INJ 10 MG/ML 2 ML VIAL IV SCH (08:09)
[2018-10-25] MEDS: POTASSIUM CHLORIDE 10MEQ EA PO SCH (08:09)
[2018-10-25] MEDS: MULTIVITAMINS/MINERALS TAB PO SCH (08:09)
[2018-10-25] MEDS: CEFTRIAXONE SOD 1 GM/NS 50 ML 50 ML IV SCH (08:10)
[2018-10-25] MEDS: METOPROLOL SUCCINATE 50 MG TAB XL PO SCH ×2 (08:10→17:29)
[2018-10-25] MEDS: BALSAM PERU/CASTOR OIL 5 GM OINT...G. TP SCH (08:10)
--- NOTE | 2018-10-25 09:11 | Diagnostic Imaging Report ---
EXAMINATION: CHEST SINGLE (PORTABLE) INDICATION: Shortness of breath COMPARISON: Chest CT of 10/17/2018, chest radiograph of 10/17/2018 FINDINGS: TUBES and LINES: Pacer leads and sternotomy wires overlie the thorax. LUNGS: The lung volumes are low. There is perihilar fullness and indistinctness of the pulmonary vasculature. There is left basilar opacity silhouetting the left sima diaphragm. Pulmonary nodules previously described on chest CT of 10/17/2018 are beyond the resolution of this portable radiograph. PLEURA: No pleural effusion or pneumothorax. HEART AND MEDIASTINUM: The cardiomediastinal silhouette is mildly enlarged. Atherosclerotic calcifications involve the thoracic aorta. BONES AND SOFT TISSUES: No acute fracture or dislocation. Surgical clips overlie the left neck soft tissues. UPPER ABDOMEN: No free air under the diaphragm. IMPRESSION: Pulmonary edema. Left basilar patchy opacity may represent aspiration and/or pneumonia in the proper clinical setting. RECOMMENDATIONS: Follow-up chest radiograph in 4-6 weeks to assess for resolution. Signed by: Louis De Luna MD on 10/25/2018 9:08 AM
--- NOTE | 2018-10-25 10:22 | NUR ---
requested FC removal from Dr Paul, stated not to remove at this time dt urinary retention
--- NOTE | 2018-10-25 11:12 | Progress Note ---
DATE: 10/25/2018 Cardiology Progress Note SUBJECTIVE: The patient is mildly confused. Denies any chest pain or shortness of breath. OBJECTIVE: VITAL SIGNS: Temperature is 98.1, heart rate is 87 respirations are 22, blood pressure is 102/74, oxygen saturation is 95% on 2 L nasal cannula. GENERAL: She is a chronically ill-appearing elderly woman, lying comfortably in bed. CARDIOVASCULAR: Regular rate and rhythm. LUNGS: Diminished breath sounds. ABDOMEN: Soft, nontender, nondistended. EXTREMITIES: No edema. CARDIOVASCULAR MEDICATIONS: Reviewed. LABORATORY DATA: Reviewed. TELEMETRY: Monitoring revealed episodes of atrial fibrillation with rapid ventricular response, currently in normal sinus rhythm. IMPRESSION: 1. Acute on chronic systolic congestive heart failure. 2. Paroxysmal atrial fibrillation. 3. History of ventricular tachycardia. 4. Liver cirrhosis. 5. Presence of implantable cardioverter-defibrillator. 6. Chronic debilitation and malnutrition. RECOMMENDATIONS: Continue close hemodynamic and telemetry monitoring. Continue current cardiovascular medications including metoprolol, warfarin. If needed for better heart rate control, can give a doses of digoxin. Fluids have been weaned off. Continue Lasix 20 mg IV daily. Miah Oliva DO BM/MODL /[id number]
--- NOTE | 2018-10-25 11:59 | NUR ---
SPOKE WITH SON AMBER AGREED TO SPEAK WITH [facility], CALLED REP HE WILL MEET WITH THEM TUESDAY AT 10 AM.
--- NOTE | 2018-10-25 13:56 | Diagnostic Imaging Report ---
PROCEDURE:US CHEST (INCL MEDIASTINUM) COMPARISON:Chest radiograph 10/25/2018. INDICATIONS:pleural effusion Technique: Transverse and longitudinal sonographic images of the chest were obtained. FINDINGS: See conclusion. CONCLUSION: Moderate bilateral pleural effusions. Dictated by: Tom Baum M.D. on 10/25/2018 at 14:00 Electronically approved by: Tom Baum M.D. on 10/25/2018 at 14:00
--- NOTE | 2018-10-25 13:59 | NUR ---
Nutrition Follow-up Note RD Recommendation(s) for Physician: The patient meets criteria for MODERATE protein-calorie malnutrition. - Rec liberalizing diet to regular to increase PO intake - Rec appetite stimulant to increase PO intake - Continue Ensure Enlive BID to increase protein calorie intake Plan of Care: RD following, monitoring for tolerance and adequacy, ONS rec Nutrition reason for involvement: Follow up, RN consult poor appetite RD Assessment 10/25 Pt was discussed during AM rounds. Pt is confused and continues to have poor appetite. Pt drinks some of the Ensure ordered. Visited pt in the room. Pt was sleeping. No family on bedside. Pt took a few bites of lunch. Pending hospice evaluation. 10/21 Discussed case with SHANNAN Gregg. Pt has had poor appetite, even with meal assistance. Family brought a 6pk Yris Ensure and pt only drank a little bit. RN requested for Ensure Yris from kitchen as pt didnt like the other flavors. Renal function has slightly improved. Phos WNL. K is repleted. Will discuss with MD if it is appropriate to liberalize her diet. Will continue to monitor and follow. 10/18/2018 - 78yo F, who was admitted for Afib with RVR. Visited pt in the room. Pt reports poor appetite with nausea for many days. No vomiting episode noted. LBM 10/17. Pt doesnt have bottom denture; pt is agreeable with chopped diet. Pt denies any swallowing difficulty. Pt requires assistance with feeding. Unable to obtain weight hx. Reviewed old medical record and suspected some weight loss. Pending MBS and NOTE TELLER evaluation. Will continue to monitor and follow. Principal Problems/Diagnoses: A fib, CHF PMH: HTN, COPD, CHF, NC, A fib GI: abdomen soft, non-tender, round, flatus present Skin: No pressure wound, per wound care Labs: (10/25) reviewed (10/21)K 3.4 L, BUN 37 H, creatinine 1.72 H, Glucose 138 H, Ca 8.3 L (10/18) Na 135 L, K 5.2 H, Creatinine 1.48 H Meds: lasix, K dur, lactulose, MVi w/minerals, folic acid, synthroid, pepcid Ht: 65in Wt: 130lb 02/2018, 124.01lb 10/18/18, 131.25lb 10/21; 141lb 10/25 BMI: 20.6kg/m2 IBW: 125lbs Malnutrition Evaluation (10/18/2018) The patient meets criteria for MODERATE protein-calorie malnutrition. Energy intake: <75% of estimated energy requirements for >7 days Weight loss: Some weight loss, unknown onset Fat loss: Moderate clavicle protrusion Muscle loss: Moderate temporal depression Supporting Evidence: Fluid accumulation: unable to evaluate Functional Status: reduced Nutrition Prescription (Diet Order): Renal diet w/ Ensure BID Estimated Nutritional Needs: Calories: 1400 - 1680 kcal (25-30kcal/kg/d) Weight used: CBW Protein: 84 112g (1.5-2g/kg/d) Weight used: CBW Diet Adequacy: Not meeting calorie needs, not meeting protein needs Diet Education Needs Assessment: Diet education indicated, but patient not appropriate for education at this time. Nutrition Care Level: low Nutrition Diagnosis: Moderate malnutrition related to inadequate oral intake as evidenced by <75% of estimated energy requirements for >7 days and moderate muscle/ fat loss. Goal: Patient will meet 75-100% of estimated needs by follow up Progress: Not progressing Interventions: Modified diet, Commercial beverage, Prescription medications Monitoring/Evaluation: Total energy intake, Total protein intake, Modified diet, Liquid supplement, Weight change Signed: Lata Merritt, MS, RD, LD
--- NOTE | 2018-10-25 14:04 | NUR ---
DISCUSSED IN BARRIER ROUNDS PT TAKING ENSURE, FAMILY MEETING WITH [facility] TUESDAY AT 10 AM
--- NOTE | 2018-10-25 15:46 | NUR ---
pt having thoracentesis (right side at this time), consent obtained with pt and daughter in law Lisandra, witnessed by another nurse via phone.
[2018-10-25] MEDS: WARFARIN SOD 5 MG TAB PO SCH ×2 (15:48→17:29)
[2018-10-25] MEDS: ENOXAPARIN SOD INJ 40 MG/0.4 ML SYR SC SCH ×2 (15:48→17:29)
--- NOTE | 2018-10-25 15:48 | NUR ---
pt to have left side thora tomorrow, per held blood thinning rx
--- NOTE | 2018-10-25 16:41 | Diagnostic Imaging Report ---
Date and Time: 10/25/2018 4:30PM Procedure: Ultrasound-guided right diagnostic and therapeutic thoracentesis synthetic resin operator: Dr. Louis De Luna Pre-operative diagnosis: Right pleural effusion Post-operative diagnosis: Right pleural effusion Conscious Sedation: The patient's heart rate and pulse oximetry were continuously monitored by the IR nurse. Blood pressure was monitored at 5 minute intervals. Additional Medications: Lidocaine 1% for local anesthesia Estimated blood loss: Minimal Specimens: 600 cc pleural fluid Implants: None DISCUSSION: Informed consent was obtained from the patient and documented in the medical record. The patient was placed in the upright position. The right posterior chest was prepped and draped in standard sterile fashion. 1% lidocaine was infiltrated into the skin and subcutaneous tissues for local anesthesia. Then under continuous sonographic guidance a 5 Fr catheter was advanced into the right pleural space. The catheter was advanced off the needle and connected to vacuum bottle with subsequent evacuation of 600 cc of serous fluid. The catheter was removed and a sterile, occlusive dressing was applied. Sample was sent to the lab. The patient tolerated the procedure well. FINDINGS: Right pleural effusion. IMPRESSION: Ultrasound-guided right thoracentesis with evacuation of 600 cc straw-colored serous fluid. Signed by: Louis De Luna MD on 10/25/2018 4:38 PM
--- NOTE | 2018-10-25 17:08 | NUR ---
pt to have left thora done tuesday, ok to give thinners today and hold tomorrow. labs put in for fridays fluid. pt tolerated todays procedure well.
[2018-10-25 17:51] LABS: BODY FLUID TYPE PLEURAL
[2018-10-25 17:52] LABS: BODY FLUID APPEARANCE CLEAR; BODY FLUID COLOR YELLOW
[2018-10-25 17:54] LABS: RBC,BODY FLUID 571 cells/uL; WBC,BODY FLUID 39 cells/uL
[2018-10-25 18:03] LABS: MONO/MACROPHG,BODY FLUID 20 %; NEUTROPHILS,BODY FLUID 76 %; OTHER CELLS,BODY FLUID 4 %
--- NOTE | 2018-10-25 18:29 | NUR ---
PATIENT ARRIVED ON THE UNIT AT 1815 PER BED FROM ICU ROOM 190. PATIENT IS IN STABLE CONDITION WITH NO S/S OF RESPIRATORY DISTRESS. NO PAIN VOICED. 02 APPLIED. TELEMETRY APPLIED. RANDOLPH INTACT AND DRAINING. BED ALARM ON. CALL LIGHT IS WITHIN REACH, INSTRUCTED TO CALL FOR ASSISTANCE NEEDED. VS OBTAINED. AIR PUMP APPLIED.
[2018-10-25 18:31] VITALS: BP 125/79
--- NOTE | 2018-10-25 19:24 | NUR ---
PATIENT IS RESTING IN BED- IN STABLE CONDITION WITH NO S/S OF RESPIRATORY DISTRESS. NO PAIN VOICED. 02 APPLIED AT 2L NC. DAUGHTER PRESENT IN ROOM. RANDOLPH INTACT AND DRAINING. BED ALARM ON. CALL LIGHT IS WITHIN REACH, INSTRUCTED TO CALL FOR ASSISTANCE NEEDED. BEDSIDE REPORT GIVEN TO ONCOMING NURSE.
[2018-10-25 19:31] VITALS: BP 130/78
--- NOTE | 2018-10-25 19:31 | NUR ---
PT IS RESTING IN BED WITH HIS DAUGHTER AT BEDSIDE. RESPIRATION IS EVEN AND UNLABORED, NO DISTRESS NOTED. BED IN THE LOWEST POSITION, LOCKED, BED ALARM ON, AND CALL LIGHT WITHIN REACH. WILL CONTINUE TO MONITOR.
[2018-10-25 20:00] VITALS: BP 130/78
[2018-10-25] MEDS: LISINOPRIL 10 MG TAB PO SCH (20:34)
[2018-10-26] VITALS (8 sets, daily range): BP systolic 128–144; BP diastolic 86–103
[2018-10-26] MEDS: FAMOTIDINE 20 MG/2 ML VIAL IV SCH ×2 (03:18→15:15)
[2018-10-26 05:41] LABS: BASOPHILS # (AUTO) 0.1 (0.0-0.1); BASOPHILS % 0.5 % (0.0-1.0); EOSINOPHILS % 0.1 % (0.0-6.0); HEMATOCRIT 37.3 % (34.2-44.1); HEMOGLOBIN 11.4 g/dL (12.0-16.0); LYMPHOCYTES # (AUTO) 0.5 (1.0-3.2); LYMPHOCYTES % 4.8 % (18.0-39.1); MEAN CORPUSCULAR HEMOGLOBIN 31.5 pg (28-32); MEAN CORPUSCULAR HGB CONC 30.6 g/dL (31-35); MONOCYTES # (AUTO) 1.2 (0.2-0.8); MONOCYTES % 11.2 % (4.4-11.3); NEUTROPHILS # (AUTO) 8.5 (2.1-6.9); NEUTROPHILS % 82.5 % (38.7-80.0); PLATELET COUNT 117 x10e3/uL (140-360); RED BLOOD COUNT 3.62 x10e6/uL (3.6-5.1); RED CELL DISTRIBUTION WIDTH 16.4 % (11.7-14.4)
[2018-10-26 05:49] LABS: INR 1.81; PROTHROMBIN TIME 21.6 seconds (11.9-14.5)
[2018-10-26 06:02] LABS: ALANINE AMINOTRANSFERASE 508 IU/L (0-55); ALBUMIN 3.2 g/dL (3.5-5.0); ALBUMIN/GLOBULIN RATIO 1.3 (0.8-2.0); ALKALINE PHOSPHATASE 124 IU/L (40-150); ANION GAP 14.9 mmol/L (8-16); BLOOD UREA NITROGEN 21 mg/dL (7-26); BUN/CREATININE RATIO 23 (6-25); CARBON DIOXIDE 34 mmol/L (22-29); CHLORIDE 98 mmol/L (98-107); EST GLOMERULAR FILTRATION RATE > 60 ML/MIN (60-); GLUCOSE 115 mg/dL (74-118); POTASSIUM 3.9 mmol/L (3.5-5.1); SODIUM 143 mmol/L (136-145)
[2018-10-26] MEDS: LEVOTHYROXINE SODIUM 112 MCG TAB PO SCH (06:32)
[2018-10-26] MEDS ORDERED: SODIUM CHLORIDE 0.9% 250ML 250 ML ONE (08:15)
[2018-10-26] MEDS: LACTULOSE SYRUP 20 GM/30 ML UDC PO SCH ×3 (09:17→22:04)
[2018-10-26] MEDS: POTASSIUM CHLORIDE 10MEQ EA PO SCH (09:17)
[2018-10-26] MEDS: FUROSEMIDE INJ 10 MG/ML 2 ML VIAL IV SCH (09:17)
[2018-10-26] MEDS: MULTIVITAMINS/MINERALS TAB PO SCH (09:17)
[2018-10-26] MEDS: FOLIC ACID 1 MG TAB PO SCH (09:17)
[2018-10-26] MEDS: CEFTRIAXONE SOD 1 GM/NS 50 ML 50 ML IV SCH (09:18)
[2018-10-26] MEDS: METOPROLOL SUCCINATE 50 MG TAB XL PO SCH ×2 (09:18→17:57)
--- NOTE | 2018-10-26 09:26 | NUR ---
Received patient this morning, alert and responsive, in bed and no respiratory distress, no c/o pains, call light within reach and rounds completed this morning, will monitor.
--- NOTE | 2018-10-26 09:27 | NUR ---
NG tube in place and tube feeding running at ordered rate, HOB elevated and no aspirations. Patients keeps placing the HOB down and was educated to maintain elevated to avoid risk of aspirations.. Had 2 loose BMs this morning and call light within reach, will monitor. Addendum: 10/26/18 at 0930 by Landry Contreras RN WRONG ENTRY
[2018-10-26] MEDS: BALSAM PERU/CASTOR OIL 5 GM OINT...G. TP SCH (11:27)
[2018-10-26] MEDS: WARFARIN SOD 5 MG TAB PO SCH (17:00)
--- NOTE | 2018-10-26 17:30 | NUR ---
Coumadin held due to thoracentesis tomorrow, patient appetite poor, tolerated 15% of meal, Holloway cath draining and cath care provided, will monitor.
--- NOTE | 2018-10-26 17:39 | Progress Note ---
DATE: 10/26/2018 Cardiology Progress Note SUBJECTIVE: The patient is unable to report; however, she nods occasionally. OBJECTIVE: VITAL SIGNS: Temperature 98.1, pulse 115, respiratory rate 16, blood pressure 142/90, and oxygen saturation 92% on 2 L nasal cannula. GENERAL: Chronically ill-appearing woman, lethargic, resting in bed. CARDIOVASCULAR: Tachycardic. Regular rate and rhythm. Systolic murmur present. LUNGS: Diminished breath sounds throughout. ABDOMEN: Soft, nontender. LOWER EXTREMITIES: No edema. CARDIOVASCULAR MEDICATIONS: Metoprolol succinate 50 mg p.o. b.i.d., Lasix 20 mg p.o. IV daily, lisinopril 10 mg h.s., warfarin 5 mg p.o. daily, Lovenox 40 mg subcu daily. LABORATORY DATA: WBC 10.31, hemoglobin 11.4, hematocrit 37.3, platelets 117. Sodium 143, potassium 3.9, BUN 23, creatinine 0.90, AST 134, ALT 508. INR 1.81, PT 21.6. TELEMETRY: V paced rhythm. IMPRESSION: 1. Acute on chronic systolic heart failure. 2. Paroxysmal atrial fibrillation. 3. History of ventricular tachycardia. 4. Liver cirrhosis. 5. Presence of ICD. 6. Chronic debility and malnutrition. RECOMMENDATION: Continue to monitor closely. Maintain on telemetry. The patient is on optimal medical therapy given above cardiac problems. Monitor INR closely. We will continue to follow this patient closely. Dictated by Mervat Irvin NP MD MUNDO Dickey/VARUN /[id number]
--- NOTE | 2018-10-26 19:00 | NUR ---
RECEIVED PATIENT IN BEDSIDE REPORT. PATIENT RESTING IN BED AT THIS TIME. PATIENT VERY LOW ENERGY, BUT A&OX3. NO PAIN REPORTED. NO S&S OF DISTRESS NOTED. O2 @2L VIA NC. R FA 20 G IV ASYMPTOMATIC. RANDOLPH DRAINING TO GRAVITY, URINE DARK YELLOW. SCDS AND ALTERNATING PRESSURE PUMP IN PLACE. BED LOCKED IN LOWEST POSITION, SIDE RAILS UPX2, CALL LIGHT IN REACH.
[2018-10-26] MEDS: LISINOPRIL 10 MG TAB PO SCH (22:05)
[2018-10-27] VITALS (7 sets, daily range): BP systolic 100–130; BP diastolic 66–81
[2018-10-27] MEDS: FAMOTIDINE 20 MG/2 ML VIAL IV SCH (04:00)
[2018-10-27] MEDS: LEVOTHYROXINE SODIUM 112 MCG TAB PO SCH (06:10)
--- NOTE | 2018-10-27 07:30 | NUR ---
RC'D PATIENT ASLEEP WITH UNLABORED BREATHING, NC RUNNING AT 2L/MIN. PATIENT IS AAOX1-2. SCDs ARE ON BILATERAL LEGS. BED IN LOWEST POSITION, SIDE RAILS UP, AND CALL HEART WITHIN REACH.
[2018-10-27] MEDS: LACTULOSE SYRUP 20 GM/30 ML UDC PO SCH (08:24)
[2018-10-27] MEDS: MULTIVITAMINS/MINERALS TAB PO SCH (08:24)
[2018-10-27] MEDS: POTASSIUM CHLORIDE 10MEQ EA PO SCH (08:24)
[2018-10-27] MEDS: FOLIC ACID 1 MG TAB PO SCH (08:24)
--- NOTE | 2018-10-27 08:30 | NUR ---
DR. MORALES SAW PATIENT AND ACCORDING TO PATIENT STATUS AND O2 IN THE LOW 90'S. DR. MORALES ORDERED BIPAP MASK. PATIENT COUGHING. CALLED SON TO LET KNOW OF CHANGE OF CONDITION AND TO SEE IF HE WANTS TO KEEP PATIENT FULL CODE, LIMITED CPR, OR DNR. SON, AMBER, SAID TO PLACE PATIENT A DNR. NOTIFIED DR. ZHANG AND SAID TO PLACE ORDER FOR CODE STATUS CHANGE TO DNR.
[2018-10-27] MEDS: METOPROLOL SUCCINATE 50 MG TAB XL PO SCH (08:51)
[2018-10-27] MEDS: FUROSEMIDE INJ 10 MG/ML 2 ML VIAL IV SCH (08:51)
--- NOTE | 2018-10-27 09:00 | NUR ---
DR. ZHANG PLACED PATIENT ON DNR PER PATIENT'S SON DECISION TO PLACE PATIENT ON DNR.
[2018-10-27] MEDS ORDERED: FUROSEMIDE INJ 10 MG/ML 2 ML VIAL IV ONE (09:15)
[2018-10-27] MEDS: CEFTRIAXONE SOD 1 GM/NS 50 ML 50 ML IV SCH (09:43)
[2018-10-27] MEDS ORDERED: FUROSEMIDE INJ 10 MG/ML 4 ML VIAL IV ONE (09:45)
--- NOTE | 2018-10-27 10:51 | NUR ---
PT FAMILY REFUSED HOSPICE
[2018-10-27] MEDS: BALSAM PERU/CASTOR OIL 5 GM OINT...G. TP SCH (11:17)
[2018-10-27] MEDS: NYSTATIN 15 GM POWDER UD BTL TOP SCH (11:17)
--- NOTE | 2018-10-27 12:00 | NUR ---
CONSENT HAS BEEN SIGNED BY FAMILY MEMBER FOR THORACENTESIS OF LEFT LUNG.
--- NOTE | 2018-10-27 12:30 | NUR ---
NOTIFIED DR. MORALES OF TACHYCARDIA IN PATIENT. EKG ORDERED PER DR. MORALES. WILL NOTIFY DR. DURAN.
--- NOTE | 2018-10-27 13:20 | NUR ---
PAGED DR. DURAN TO NOTIFY OF EKG STRIP.
[2018-10-27] MEDS: WARFARIN SOD 5 MG TAB PO SCH (17:00)
--- NOTE | 2018-10-27 17:34 | NUR ---
FAMILY MEMBERS KEEP ASKING IF PATIENT CAN EAT SOMETHING. REPEATEDLY STATED TO FAMILY THAT PATIENT IS TO MAINTAIN NPO DUE TO ASPIRATION PRECAUTIONS UNTIL SPEECH THERAPY SEES PATIENT AND RECOMMENDS A SAFE DIET FOR PATIENT.
--- NOTE | 2018-10-27 17:36 | NUR ---
IR CALLED TO NOTIFY THAT PATIENT CANNOT UNDERGO LEFT THORACENTESIS DUE TO INR OF 1.8. INR LABS WILL HAVE TO BE DRAWN ON TUESDAY AGAIN. PAGED DR. MORALES TO INFORM.
--- NOTE | 2018-10-27 18:50 | NUR ---
PATIENT TO REMAIN NPO, DAUGHTER IN LAW AT THE BEDSIDE, NO S/S OF DISTRESS. REPOSITIONED TO THE LEFT SIDE. SIDE RAILS UP X3, BED IN LOWEST POSITION, AND CALL HEART WITHIN REACH.
--- NOTE | 2018-10-27 19:00 | NUR ---
RECEIVED PATIENT IN BEDSIDE REPORT. PATIENT IS RESTING IN BED AT THIS TIME. FAMILY MEMBER AT BEDSIDE. PATIENT IS NPO, REMINDED FAMILY MEMBER OF THIS STATUS. SCDS AT BEDSIDE, OFF FOR THE MOMENT D/T DISCOMFORT FROM LEGS BEING WARM. ALTERNATING PRESSURE MATTRESS ACTIVE. O2 @ 2L VIA NC. BED LOCKED IN LOWEST POSITION, SIDE RAILS UPX2, CALL LIGHT IN REACH.
--- NOTE | 2018-10-27 19:50 | NUR ---
CALLED MD ZHANG TO DISCUSS POSSIBLE DEHYDRATION FROM BEING NPO WITH NO FLUIDS. PATIENT IS FLUID OVERLOADED SO IV FLUIDS IS NOT AN OPTION. MD ZHANG ORDERED MECHANICAL SOFT DIET TO ALLOW FOR SOME FLUID INTAKE. STILL AWAITING SPEECH THERAPY TO ASSESS PATIENT'S SWALLOWING ABILITY AND POSSIBLE ASPIRATION.
--- NOTE | 2018-10-27 22:30 | NUR ---
PATIENT'S FAMILY MEMBER WANTS PATIENT LEFT ALONE TO REST. SHE STATES SHE GOT HER IN A COMFORTABLE POSITION, WHERE SHE IS NOT IN PAIN, AND DOES NOT WANT HER TO BE MOVED. REMINDED HER OF IMPORTANCE OF CHANGING POSITION TO DECREASE PRESSURE, FAMILY MEMBER STILL WANTS HER LEFT ALONE. ALSO DOES NOT WANT MIDNIGHT VITALS TAKEN SO SHE CAN REST. WILL MONITOR CLOSELY.
--- NOTE | 2018-10-28 01:30 | NUR ---
PATIENT REPORTS FEELING SOME CHEST PAIN, BUT UNABLE TO DESCRIBE IT. PATIENT'S NC HAD FALLEN OFF FOR UNKNOWN AMOUNT OF TIME. REAPPLIED OXYGEN. GOT AN EKG. NO ABNORMAL FINDINGS CONSIDERING PATIENT'S HISTORY AND COMPARED TO PREVIOUS EKGS. FAMILY MEMBER STATED SHE FELT THE PAIN WAS RELATED TO DISCOMFORT FROM STAYING IN BED. HELPED PATIENT TO MOVE ARMS AND LEGS, TURNED FROM SIDE TO SIDE, GAVE PATIENT A BEDBATH, CHANGED ALLEVYN PAD, CHANGED BED LINENS. PATIENT REPORTS FEELING NO MORE CHEST PAIN AFTER THESE COMFORT MEASURES WERE GIVEN. TOLD PATIENT AND FAMILY MEMBER TO CALL IF PAIN OCCURS AGAIN, UNDERSTANDING VERBALIZED.
--- NOTE | 2018-10-28 02:58 | NUR ---
PATIENT'S FAMILY MEMBER ASKING ABOUT GIVING PATIENT SOME FOOD/DRINK. DISCUSSED WITH HER RISKS OF EATING OR DRINKING BEFORE BEING EVALUATED BY SPEECH THERAPY FOR ASPIRATION RISKS. EXPLAINED ORDER FROM MD ZHANG FOR MECHANICAL SOFT DIET AND OPTIONS AVAILABLE AT NIGHT. EXPLAINED WE COULD TRY PUDDING OR THICKENED WATER, VERY SLOWLY, WITH NURSE TO ASSESS FOR ASPIRATION, AGAIN EXPLAINED THE RISKS INVOLVED, AND THAT WE WOULD STOP IMMEDIATELY IF ANY COUGHING OR THROAT CLEARING NOTED. PATIENT AND FAMILY MEMBER WANTED TO TRY. GAVE THICKENED WATER TO START, VERY SLOWLY. PATIENT HAD ABOUT 1 OZ BEFORE SAYING SHE THOUGHT IT WAS ENOUGH. NO COUGHING NOTED. NO THROAT CLEARING NOTED. REMINDED FAMILY MEMBER TO NOT GIVE PATIENT ANYTHING, ONLY NURSE SHOULD GIVE PATIENT ANY FOOD OR DRINK. FAMILY MEMBER VERBALIZED UNDERSTANDING.
[2018-10-28 04:00] VITALS: BP 122/72
--- NOTE | 2018-10-28 05:00 | NUR ---
FAMILY MEMBER REQUESTED WE NOT TURN PATIENT BECAUSE SHE IS RESTING AND NOT IN PAIN AT THE MOMENT AND DOES NOT WANT TO DISTURB HER.
[2018-10-28] MEDS: LEVOTHYROXINE SODIUM 112 MCG TAB PO SCH (06:00)
[2018-10-28 07:30] VITALS: BP 134/73
--- NOTE | 2018-10-28 07:30 | NUR ---
REC'D PATIENT AAOX2, DAUGHTER IN LAW AT BEDSIDE. PATIENT ON 4 L OF OXYGEN VIA NC. IV TO RIGHT AC 20 GAUGE INTACT AND PATENT. NO S/S OF DISTRESS. REPOSITIONED PATIENT TO LEFT SIDE. SIDE RAILS UP X2, BED IN LOWEST POSITION, AND CALL HEART WITHIN REACH.
[2018-10-28 08:01] VITALS: BP 134/73
[2018-10-28] MEDS: FUROSEMIDE INJ 10 MG/ML 2 ML VIAL IV SCH (08:19)
[2018-10-28] MEDS: CEFTRIAXONE SOD 1 GM/NS 50 ML 50 ML IV SCH (08:19)
--- NOTE | 2018-10-28 10:55 | NUR ---
ORDER RECEIVED FOR REEVALUATION FOR HOSPICE. CM MET W PT AND FRIENDS AT THE BEDSIDE. STATES CHARLIE HAD GONE HOME AND WILL RETURN LATER TODAY. CM CALLED CHARLIE / DTR. NO ANSWER. LEFT VM W CONTACT INFO.
--- NOTE | 2018-10-28 11:46 | Progress Note ---
DATE: 10/28/2018 Cardiology Progress Note SUBJECTIVE: The patient reports recurrence of chest pain around 1 o'clock this morning. Reports that that pain was very similar to herself like the way she felt once she had a heart attack. EKG reviewed, V-paced rhythm, inconclusive. No other complaints. PHYSICAL EXAMINATION: VITAL SIGNS: Temperature 97.5, pulse 88, respiratory rate 22, blood pressure 134/73, oxygen saturation 98% on 4 L nasal cannula. GENERAL: Alert and oriented x3 this morning, resting comfortably in bed. Family at the bedside. NECK: JVD noted. CARDIOVASCULAR: Regular rate and rhythm. Systolic murmur present. LUNGS: Diminished breath sounds throughout. ABDOMEN: Soft, nontender. Hypoactive bowel sounds. EXTREMITIES: Lower extremity, no edema. CARDIOVASCULAR MEDICATIONS: Warfarin 5 mg p.o. daily, metoprolol 5 mg q.4 hours p.r.n., furosemide 20 mg IV daily. LABS: No new labs today. TELEMETRY: V-paced rhythm. IMPRESSION: 1. Acute on chronic systolic heart failure. 2. Paroxysmal atrial fibrillation. 3. History of ventricular tachycardia. 4. Liver cirrhosis. 5. Presence of ICD. 6. Chronic debility and malnutrition. 7. Chest pain. 8. Aspiration. RECOMMENDATION: Repeat labs this morning including cardiac enzymes. Maintain on telemetry. Medical therapy of the above condition for now. Monitor INR closely. Plans for speech evaluations today. Dictated by Mervat Irvin NP MD DIONY DickeyV/VARUN /[id number]
[2018-10-28 12:10] LABS: BASOPHILS % 0.4 % (0.0-1.0); EOSINOPHILS % 0.2 % (0.0-6.0); HEMATOCRIT 41.1 % (34.2-44.1); HEMOGLOBIN 12.6 g/dL (12.0-16.0); LYMPHOCYTES # (AUTO) 0.9 (1.0-3.2); LYMPHOCYTES % 8.9 % (18.0-39.1); MEAN CORPUSCULAR HEMOGLOBIN 31.5 pg (28-32); MEAN CORPUSCULAR HGB CONC 30.7 g/dL (31-35); MEAN CORPUSCULAR VOLUME 102.8 fL (81-99); MONOCYTES # (AUTO) 0.9 (0.2-0.8); MONOCYTES % 9.4 % (4.4-11.3); NEUTROPHILS # (AUTO) 7.9 (2.1-6.9); NEUTROPHILS % 80.8 % (38.7-80.0); PLATELET COUNT 136 x10e3/uL (140-360); RED CELL DISTRIBUTION WIDTH 16.2 % (11.7-14.4)
[2018-10-28 12:35] LABS: CREATINE KINASE MB 1.1 ng/mL (0-5.0)
[2018-10-28 12:50] VITALS: BP 136/84
[2018-10-28 12:50] LABS: ANION GAP 14.7 mmol/L (8-16); BLOOD UREA NITROGEN 20 mg/dL (7-26); BUN/CREATININE RATIO 24 (6-25); CALCIUM 9.1 mg/dL (8.4-10.2); CARBON DIOXIDE 39 mmol/L (22-29); CHLORIDE 95 mmol/L (98-107); CREATININE, SERUM 0.83 mg/dL (0.57-1.11); EST GLOMERULAR FILTRATION RATE > 60 ML/MIN (60-); GLUCOSE 100 mg/dL (74-118); POTASSIUM 3.7 mmol/L (3.5-5.1); SODIUM 145 mmol/L (136-145)
[2018-10-28] MEDS: BALSAM PERU/CASTOR OIL 5 GM OINT...G. TP SCH (14:43)
[2018-10-28] MEDS: NYSTATIN 15 GM POWDER UD BTL TOP SCH (14:43)
[2018-10-28] MEDS: WARFARIN SOD 5 MG TAB PO SCH (16:10)
[2018-10-28 16:34] VITALS: BP 129/63
--- NOTE | 2018-10-28 18:50 | NUR ---
PT IS LAYING IN SEMI-FOWLERS POSITION WITH NO S/S OF DISTRESS. BED IN LOWEST POSITION, SIDE RAILS UP X2, AND CALL HEART WITHIN REACH.
--- NOTE | 2018-10-28 19:00 | NUR ---
Patient visited in room during nursing rounds. Patient alert and oriented x 2. Patient is on bed rest but was able to ambulate a little in room today with PT assistance as per report received from shakeel CAMBPELL. Pt tolerating GI soft diet with ground meats. Pt diapered and is incontinent. Pt is DNR in care. Holloway catheter in place for urinary retention draining clear yellow urine. Call clark within reach. Bed alarm active.
[2018-10-28 20:00] VITALS: BP 92/75
--- NOTE | 2018-10-28 22:00 | NUR ---
Patient's family and relatives at bedside visiting.
[2018-10-29] VITALS (7 sets, daily range): BP systolic 118–146; BP diastolic 66–76
[2018-10-29 06:04] LABS: BASOPHILS % 0.3 % (0.0-1.0); EOSINOPHILS # (AUTO) 0.1 (0.0-0.4); EOSINOPHILS % 0.8 % (0.0-6.0); HEMATOCRIT 38.3 % (34.2-44.1); LYMPHOCYTES # (AUTO) 1.2 (1.0-3.2); LYMPHOCYTES % 12.2 % (18.0-39.1); MEAN CORPUSCULAR HEMOGLOBIN 31.7 pg (28-32); MEAN CORPUSCULAR HGB CONC 31.3 g/dL (31-35); MEAN CORPUSCULAR VOLUME 101.3 fL (81-99); MONOCYTES # (AUTO) 0.9 (0.2-0.8); NEUTROPHILS # (AUTO) 7.5 (2.1-6.9); NEUTROPHILS % 77.2 % (38.7-80.0); PLATELET COUNT 154 x10e3/uL (140-360); RED BLOOD COUNT 3.78 x10e6/uL (3.6-5.1); RED CELL DISTRIBUTION WIDTH 15.9 % (11.7-14.4)
[2018-10-29] MEDS: LEVOTHYROXINE SODIUM 112 MCG TAB PO SCH (06:07)
[2018-10-29 06:23] LABS: INR 2.05; PROTHROMBIN TIME 23.8 seconds (11.9-14.5)
[2018-10-29 06:58] LABS: ANION GAP 13.3 mmol/L (8-16); BLOOD UREA NITROGEN 21 mg/dL (7-26); BUN/CREATININE RATIO 30 (6-25); CALCIUM 8.7 mg/dL (8.4-10.2); CARBON DIOXIDE 39 mmol/L (22-29); CHLORIDE 95 mmol/L (98-107); CREATININE, SERUM 0.69 mg/dL (0.57-1.11); EST GLOMERULAR FILTRATION RATE > 60 ML/MIN (60-); GLUCOSE 107 mg/dL (74-118); POTASSIUM 3.3 mmol/L (3.5-5.1); SODIUM 144 mmol/L (136-145)
--- NOTE | 2018-10-29 08:15 | Progress Note ---
DATE: 10/29/2018 Cardiology Progress Note SUBJECTIVE: The patient complains of being tired and also shortness of breath. Denies any chest pain. OBJECTIVE: VITAL SIGNS: Temperature 98.0, pulse 90, respiratory rate 18, blood pressure 121/67, and oxygen saturation 94% on 4 L nasal cannula. GENERAL: Alert and oriented x3, resting comfortably in bed. Family at the bedside. NECK: JVD noted. CARDIOVASCULAR: Regular rate and rhythm. Systolic murmur present. LUNGS: Diminished breath sounds throughout. No wheezing. No rhonchi or crackles. ABDOMEN: Soft, nontender. Hypoactive bowel sounds. LOWER EXTREMITIES: No edema. CARDIOVASCULAR MEDICATIONS: Furosemide 20 mg IV daily, warfarin 5 mg p.o. daily, and metoprolol 5 mg q.4 hours p.r.n. LABORATORY DATA: WBC 9.73, hemoglobin 12.0, hematocrit 38.3, platelet 154. Sodium 144, potassium 3.3, creatinine 0.69, GFR greater than 50. Cardiac enzymes negative. Troponin 0.036. TELEMETRY: Ventricularly paced rhythm. IMPRESSION: 1. Acute on chronic systolic heart failure status post ICD. 2. Paroxysmal atrial fibrillation. 3. History of ventricular tachycardia. 4. Liver cirrhosis. 5. Chronic debility and malnutrition. 6. Chest pain. 7. Aspiration. 8. Left upper extremity edema. RECOMMENDATION: INR is therapeutic at 2.05, continue current dose of warfarin. Obtain left upper extremity ultrasound to rule out DVT. Continue to monitor the patient on telemetry. Continue supportive care as indicated. We will continue to follow this patient very closely. Dictated by Mervat Irvin NP MD MUNDO Dickey/VARUN /[id number]
[2018-10-29] MEDS: NYSTATIN 15 GM POWDER UD BTL TOP SCH (08:41)
[2018-10-29] MEDS: CEFTRIAXONE SOD 1 GM/NS 50 ML 50 ML IV SCH (08:41)
[2018-10-29] MEDS: BALSAM PERU/CASTOR OIL 5 GM OINT...G. TP SCH (08:41)
[2018-10-29] MEDS: FUROSEMIDE INJ 10 MG/ML 2 ML VIAL IV SCH (08:41)
[2018-10-29] MEDS: LEVALBUTEROL HCL SOLN NEBU 0.63 MG/3 ML NEB INH PRN ×3 (10:33→19:35)
[2018-10-29] MEDS: IPRATROPIUM BROMIDE 0.02% 2.5 ML NEB NEB PRN ×3 (10:33→19:35)
[2018-10-29] MEDS ORDERED: LACTULOSE SYRUP 20 GM/30 ML UDC PO ONE (11:00)
[2018-10-29] MEDS ORDERED: POTASSIUM CHLORIDE 10MEQ EA PO ONE (11:00)
--- NOTE | 2018-10-29 12:46 | Diagnostic Imaging Report ---
EXAMINATION: CHEST SINGLE (PORTABLE) INDICATION: ^efffusion ^[id number] ^[id number] COMPARISON: Chest radiograph 10/25/2018 FINDINGS: AP view TUBES and LINES: Stable 3-lead ICD device overlying the left mid chest and leads overlying the right atrial appendage, coronary sinus, and right ventricle. LUNGS: Lungs are well inflated. Bibasilar atelectasis. Bilateral pulmonary edema. PLEURA: Moderate right and a small left pleural effusions, increased. No pneumothorax. HEART AND MEDIASTINUM: Stable moderate enlargement of the cardiac silhouette. Mild calcifications of the aortic arch. BONES AND SOFT TISSUES: Intact median sternotomy wires. Soft tissues are unremarkable. UPPER ABDOMEN: No free air under the diaphragm. IMPRESSION: Worsening pulmonary edema with increasing now moderate right and small left pleural effusions. Signed by: Dr. Stella Montalvo M.D. on 10/29/2018 12:42 PM
--- NOTE | 2018-10-29 13:58 | NUR ---
aware of cxray results. See orders
[2018-10-29] MEDS ORDERED: FUROSEMIDE INJ 10 MG/ML 2 ML VIAL IV ONE (14:30)
[2018-10-29] MEDS: WARFARIN SOD 5 MG TAB PO SCH (16:16)
--- NOTE | 2018-10-29 16:18 | NUR ---
aware patient will have a thoracentesis 10/30/18. Per "hold coumadin 10/29/18"
[2018-10-29] MEDS: TRAMADOL HCL 50 MG TAB PO PRN (16:39)
--- NOTE | 2018-10-29 16:46 | NUR ---
c/o chest pain.HR 140s Stat EKG ordered
[2018-10-29] MEDS: METOPROLOL TARTRATE INJ 1 MG/ML VIAL IV PRN ×2 (17:00→21:40)
--- NOTE | 2018-10-29 17:01 | NUR ---
EKG ST 152.PRN lopressor given.
--- NOTE | 2018-10-29 17:28 | NUR ---
Paged to notify HR 130s
--- NOTE | 2018-10-29 17:30 | NUR ---
Denies chest pain
--- NOTE | 2018-10-29 18:00 | NUR ---
Patient denies chest pain. Notified patient [id number] and pacemaker not firing. Orders for digoxin received
[2018-10-29] MEDS ORDERED: DIGOXIN INJ 0.25 MG/ML 2 ML AMP IV ONE (18:30)
--- NOTE | 2018-10-29 19:00 | NUR ---
Report given to oncoming nurse of patient's status. Resting in bed.HR 129. Denies chest pain. side rails upx2, call light within reach, family at bedside.
--- NOTE | 2018-10-29 19:00 | NUR ---
Patient visited in room during nursing rounds. Patient alert and oriented x 2. Pt tolerating GI soft diet with ground meats. Pt diapered and is incontinent. Pt is DNR in care. Holloway catheter in place for urinary retention draining clear yellow urine. Family and patient aware of scheduled procedure (left thoracentesis) for patient tomorrow (10/30/18) in AM. Call clark within reach. Bed alarm active.
[2018-10-30] VITALS (7 sets, daily range): BP systolic 100–122; BP diastolic 51–76
[2018-10-30] MEDS: LEVOTHYROXINE SODIUM 112 MCG TAB PO SCH (05:39)
[2018-10-30 05:55] LABS: BASOPHILS # (AUTO) 0.1 (0.0-0.1); BASOPHILS % 0.6 % (0.0-1.0); EOSINOPHILS # (AUTO) 0.2 (0.0-0.4); EOSINOPHILS % 2.3 % (0.0-6.0); HEMATOCRIT 37.1 % (34.2-44.1); HEMOGLOBIN 11.6 g/dL (12.0-16.0); LYMPHOCYTES # (AUTO) 1.2 (1.0-3.2); LYMPHOCYTES % 14.6 % (18.0-39.1); MEAN CORPUSCULAR HEMOGLOBIN 31.7 pg (28-32); MEAN CORPUSCULAR HGB CONC 31.3 g/dL (31-35); MEAN CORPUSCULAR VOLUME 101.4 fL (81-99); MONOCYTES # (AUTO) 0.7 (0.2-0.8); MONOCYTES % 9.2 % (4.4-11.3); NEUTROPHILS # (AUTO) 5.8 (2.1-6.9); NEUTROPHILS % 72.9 % (38.7-80.0); PLATELET COUNT 162 x10e3/uL (140-360); RED BLOOD COUNT 3.66 x10e6/uL (3.6-5.1); RED CELL DISTRIBUTION WIDTH 15.7 % (11.7-14.4)
[2018-10-30 05:59] LABS: INR 1.59
[2018-10-30 06:00] LABS: PROTHROMBIN TIME 19.6 seconds (11.9-14.5)
[2018-10-30 06:06] LABS: ANION GAP 10.5 mmol/L (8-16); BLOOD UREA NITROGEN 14 mg/dL (7-26); BUN/CREATININE RATIO 22 (6-25); CALCIUM 8.8 mg/dL (8.4-10.2); CARBON DIOXIDE 38 mmol/L (22-29); CHLORIDE 94 mmol/L (98-107); CREATININE, SERUM 0.63 mg/dL (0.57-1.11); EST GLOMERULAR FILTRATION RATE > 60 ML/MIN (60-); GLUCOSE 85 mg/dL (74-118); POTASSIUM 3.5 mmol/L (3.5-5.1); SODIUM 139 mmol/L (136-145)
--- NOTE | 2018-10-30 06:14 | NUR ---
Paged Dr. Finley to verify order if thoracentesis was for right lung or left lung. Original order placed was for left thoracentesis. Awaiting on MD call back.
--- NOTE | 2018-10-30 06:40 | NUR ---
Spoke with Dr. Finley and was able to confirm that it will be right thoracentesis instead of left thoracentesis today. MD aware of CXR results from yesterday (10/29/18).
--- NOTE | 2018-10-30 06:52 | NUR ---
RECEIVED PATIENT RESTING IN BED. NO ACUTE DISTRESS NOTED. FAMILY AT BEDSIDE. CALL LIGHT WITHIN REACH. BED IN THE LOWEST POSITION. BED ALARM ON.
[2018-10-30] MEDS: LACTULOSE SYRUP 20 GM/30 ML UDC PO SCH ×4 (08:00→20:57)
[2018-10-30] MEDS: BALSAM PERU/CASTOR OIL 5 GM OINT...G. TP SCH (08:10)
[2018-10-30] MEDS: NYSTATIN 15 GM POWDER UD BTL TOP SCH (08:10)
[2018-10-30] MEDS: METOPROLOL TARTRATE INJ 1 MG/ML VIAL IV PRN ×2 (08:10→12:22)
[2018-10-30] MEDS: FUROSEMIDE INJ 10 MG/ML 2 ML VIAL IV SCH (08:10)
[2018-10-30] MEDS: TRAMADOL HCL 50 MG TAB PO PRN (08:32)
[2018-10-30] MEDS: METOPROLOL TARTRATE 25 MG TAB PO SCH ×3 (10:00→21:03)
--- NOTE | 2018-10-30 10:53 | NUR ---
PATIENT OFF UNIT FOR PROCEDURE.
--- NOTE | 2018-10-30 11:30 | Progress Note ---
DATE: 10/30/2018 Cardiology Progress Note SUBJECTIVE: Had episodes of atrial tachycardia with RVR overnight resulting in inappropriate ICD shock. There were several attempts at ATP, which were unsuccessful. Currently, remains in atrial tachycardia, heart rates in the 120s. The patient is otherwise asymptomatic. OBJECTIVE: VITAL SIGNS: Temperature afebrile, pulse 121, blood pressure 119/72, saturating 95% on nasal cannula. GENERAL: Elderly female, thin, frail. CARDIOVASCULAR: Tachycardic, irregular. No murmurs, rubs, or gallops. LUNGS: Diminished breath sounds in bilateral bases, otherwise clear to auscultation. ABDOMEN: Soft, mildly tender in epigastric area. Nondistended. NEURO AND PSYCH: Alert and oriented to person, place, and time. Normal affect. INPATIENT MEDICATIONS: Reviewed. LABORATORY DATA: Reviewed. TELEMETRY DATA: Reviewed shows atrial tachycardia and sinus tachycardia with ventricular pacing. ASSESSMENT AND PLAN: 1. Atrial tachycardia with rapid ventricular response. 2. Inappropriate ICD shock. 3. Paroxysmal atrial fibrillation. 4. Liver cirrhosis. 5. Acute on chronic systolic heart failure exacerbation. 6. History of ICD implantation. RECOMMENDATIONS: Warfarin is being held pending thoracentesis. We will start the patient on metoprolol given ongoing atrial tachycardia and now on inappropriate ICD shock was started 25 mg q.6 hours and up titrate as tolerated. We will avoid amiodarone given history of liver issues. Thank you for this consult. We will continue to follow. MD JOHN Martino/MODL /[id number]
--- NOTE | 2018-10-30 11:40 | NUR ---
PATIENT BACK TO ROOM AT THIS TIME.
--- NOTE | 2018-10-30 11:46 | Diagnostic Imaging Report ---
EXAMINATION: CHEST XRAY POST PROCEDURE INDICATION: Status post thoracentesis COMPARISON: Chest radiograph of 10/29/2018 FINDINGS: TUBES and LINES: AICD leads in unchanged position. Median sternotomy wires in place. EKG leads overlie the thorax. LUNGS: Low lung volumes. There is perihilar fullness and indistinctness of the pulmonary vasculature. PLEURA: No pneumothorax. Moderate right pleural effusion. Minimal left pleural effusion. HEART AND MEDIASTINUM: The cardiomediastinal silhouette is stably enlarged. Atherosclerotic calcifications of the thoracic aorta. BONES AND SOFT TISSUES: No acute fracture or dislocation. UPPER ABDOMEN: No free air under the diaphragm. IMPRESSION: No pneumothorax following left thoracentesis. Minimal residual left pleural effusion. Moderate right pleural effusion. Low lung volumes with unchanged pulmonary edema. Signed by: Louis De Luan MD on 10/30/2018 11:43 AM
--- NOTE | 2018-10-30 11:49 | Diagnostic Imaging Report ---
PROCEDURE: Ultrasound-guided thoracentesis Procedural Personnel Attending physician(s): oLuis De Luna MD Pre-procedure diagnosis: Pleural effusion Post-procedure diagnosis: Same Indication: Bilateral pleural effusion Additional clinical history: None Complications: No immediate complications. IMPRESSION: Ultrasound-guided thoracentesis with drainage of 450 mL of serous fluid. Plan: Postprocedural chest radiograph. Resume care by clinical team. PROCEDURE SUMMARY: - Limited thoracic ultrasound - Ultrasound-guided thoracentesis - Additional procedure(s): None PROCEDURE DETAILS: Pre-procedure Consent: Informed consent for the procedure including risks, benefits and alternatives was obtained and time-out was performed prior to the procedure. Preparation: The site was prepared and draped using maximal sterile barrier technique including cutaneous antisepsis. Anesthesia/sedation Level of anesthesia/sedation: No sedation Anesthesia/sedation administered by: Not applicable Total intra-service sedation time (minutes): None Limited thoracic ultrasound Limited thoracic ultrasound was performed using a curved transducer. A safe window for thoracentesis was identified. Left hemithorax findings: Moderate pleural effusion. Right hemithorax findings: Not assessed. Thoracentesis Local anesthesia was administered. The pleural space was accessed with a 5 Japanese catheter and fluid return confirmed position. The fluid was drained. The catheter was removed, and a sterile bandage was applied. Catheter placed: 5 Japanese one-step Post-drainage hemithorax findings: Resolution of pleural effusion. Additional Details Additional description of procedure: None Equipment details: None Specimens removed: 450 cc Pleural fluid Estimated blood loss (mL): Less than 10 Standardized report: [id number] Attestation Signer name: Louis De Luna MD I attest that I was present for the entire procedure. I reviewed the stored images and agree with the report as written. Signed by: Louis De Luna MD on 10/30/2018 11:46 AM
[2018-10-30 12:59] LABS: BODY FLUID APPEARANCE SL.CLOUDY; BODY FLUID COLOR YELLOW
[2018-10-30 13:00] LABS: BODY FLUID TYPE PLEURAL; RBC,BODY FLUID 246 cells/uL; WBC,BODY FLUID 239 cells/uL
[2018-10-30 13:50] LABS: LYMPHOCYTES,BODY FLUID 41 %; MONO/MACROPHG,BODY FLUID 5 %; OTHER CELLS,BODY FLUID 30 %
[2018-10-30 15:17] LABS: NEUTROPHILS,BODY FLUID 24 %
--- NOTE | 2018-10-30 15:38 | NUR ---
DRU SPOKE WITH AMANDA JIMENEZ WITH [facility] SHE MET WITH FAMILY AND IS LOOKING AT PLACING PT AT [facility] REQUESTED PARTICULAR DOCUMENTATION FROM DR PHILLIPS TO HELP FACILITATE (DR PHILLIPS COVERING FOR DR ZHANG) AWAIT DOCUMENTATION FROM DR PHILLIPS FOR TRANSITION TO [facility] LICENSE OF [facility] PT HAD THORACENTESIS TODAY
--- NOTE | 2018-10-30 16:41 | NUR ---
DR. MALONE, NEPHROLOGY, CLEARED PATIENT TO BE DISCHARGED.
[2018-10-30] MEDS: WARFARIN SOD 5 MG TAB PO SCH (16:42)
--- NOTE | 2018-10-30 17:44 | NUR ---
CALLED DR. BRENNAN FOR CLEARANCE FOR PATIENT TO BE TRANSFERRED TO [facility]. PER MD IS OK FOR PATIENT TO BE TRANSFERRED AND CALL [employer] TO DEACTIVATE ICD BEFORE TRANSFERRING PATIENT.
--- NOTE | 2018-10-30 17:52 | Progress Note ---
DATE: 10/30/2018 Medicine Progress Note I am covering for Dr. Paul. SUBJECTIVE: It seems like the family has agreed to hospice services at [facility]. I spoke with the daughter, Gloria by phone including the granddaughter, who was at bedside and also the patient at bedside and they all agreed to hospice services that was agreed upon with them with Dr. Paul. There are several consultants involved in this patient's care. She was being treated for acute CHF exacerbation, has AICD, also has history of ventricular tachycardia and also paroxysmal atrial fibrillation. Also has history of liver cirrhosis and multiple other medical comorbidities. She also has severe malnutrition. She is being followed by several consultants as well. PHYSICAL EXAMINATION: VITAL SIGNS: Temperature is 97, pulse 127, respiratory rate is 20, blood pressure 122/76, pulse ox 93% on room air. GENERAL: Not in acute distress. Alert and oriented x3. Cooperative on examination. HEENT: Head is normocephalic and atraumatic. Eyes; pupils are equal, round, and reactive to light bilaterally. Extraocular movements are intact bilaterally. Throat, no evidence of erythema or exudates in the posterior pharynx. Has poor dentition. NECK: Supple. Good range of motion. PULMONARY: Clear to auscultation bilaterally. No wheezing, no rales, no rhonchi, no crackles appreciated. CARDIOVASCULAR: Positive S1, S2. No murmurs, rubs, or gallops appreciated. ABDOMEN: Soft, nondistended, and nontender to palpation. Bowel sounds present. MUSCULOSKELETAL: Strength is 5/5 throughout. No evidence of any muscle deficits on examination. No weakness appreciated. NEUROLOGICAL: Cranial nerves II through XII grossly intact. No evidence of any neurological deficits on exam. SKIN: Intact. Warm to touch. Good cap refill. PSYCHIATRIC: Normal affect and mood. EXTREMITIES: No edema. Good range of motion throughout. LABORATORY DATA: Lab findings show white count 7.9, hemoglobin 11.6, hematocrit 37, platelets of 162. Coagulation; PT 19, INR 1.59. Chemistry; sodium 139, potassium 3.5, chloride 94, bicarb is 38, anion gap of 10, BUN is 14, creatinine 0.63, glucose is 85, calcium is 8.8, ammonia level of 62, normal range. TSH is 3.8, LDL was 30. Troponins were negative. Urinalysis was found to be negative. MICROBIOLOGY: Blood culture negative. Urine cultures are negative. Pleural fluid cultures found to be negative. IMAGING STUDIES: Chest x-ray this morning on 10/30/2018, no pneumothorax following left thoracentesis. Minimal left residual pleural effusion. Moderate right pleural effusion. Low lung volumes with unchanged pulmonary edema. IMPRESSION: 1. Acute exacerbation of congestive heart failure with systolic dysfunction. EF less than 20% with automatic implantable cardioverter-defibrillator. 2. Atrial tachycardia. 3. Automatic implantable cardioverter-defibrillator shock. 4. Acute exacerbation of chronic obstructive pulmonary disease. 5. Liver cirrhosis. 6. Medically debilitated with failure to thrive. PLAN: At this time, the patient was being followed by Pulmonary in which she underwent thoracentesis. Chest x-ray this morning showed a right-sided moderate pleural effusion and may need another thoracentesis before she gets discharged. Nephrology was involved due to underlying acute kidney injury and electrolyte abnormalities, which was all clarified and resolved. GI was involved as well. Underlying cirrhosis and elevated LFTs found to be from congestive pathology. Multiple serologies were ordered by GI. Cardiology was involved due to the atrial fibrillation, AICD shock and CHF. Medications were adjusted accordingly. At this time, it seems like all the consultants have agreed to discharge the patient. I discussed this case with Gloria by phone, who was medical [id number] and daughter of the patient. The patient present, nurse was witnessed and the granddaughter was present in which they all agreed to hospice services at [facility]. I discussed this with the nursing staff and Case Management as well. The patient seems to be very appropriate for hospice due to her multiple comorbidities and age related cognitive decline. Once again, the patient has severely debilitated and most definitely requires hospice care. MD DON Iglesias/VARUN /[id number]
--- NOTE | 2018-10-30 18:26 | NUR ---
CM REC'D CALL FROM ARIELA AT [facility] STATING PT'S DTR HAS NOT GOT THE PAPERWORK BACK TO HER REQUESTED THIS AM THEY ARE REQUESTING THE [facility] APPLICATION AND 6 MONTHS OF BANK STATEMENTS ARIELA REACHING OUT TO DTR THIS EVENING
--- NOTE | 2018-10-30 19:20 | NUR ---
REPORT GIVEN TO ONCOMING NURSE, WALKING ROUNDS DONE, PATIENT IS RESTING IN BED. NO ACUTE DISTRESS NOTED. FAMILY AT BEDSIDE. CALL LIGHT WITHIN REACH. BED IN THE LOWEST POSITION.
--- NOTE | 2018-10-30 19:49 | NUR ---
RECEIVED PATIENT IN AOX2 RESTING IN BED. RESPIRATIONS ARE EVEN AND UN LABORED NO ACUTE DISTRESS NOTED. FAMILY AT BEDSIDE. CALL LIGHT WITHIN REACH. CONTINUE TO MONITOR .
[2018-10-31] VITALS (11 sets, daily range): BP systolic 96–118; BP diastolic 56–82
[2018-10-31] MEDS: METOPROLOL TARTRATE 25 MG TAB PO SCH ×4 (04:00→22:00)
[2018-10-31] MEDS: LEVOTHYROXINE SODIUM 112 MCG TAB PO SCH (06:00)
[2018-10-31 06:22] LABS: BASOPHILS % 0.5 % (0.0-1.0); EOSINOPHILS # (AUTO) 0.2 (0.0-0.4); EOSINOPHILS % 2.1 % (0.0-6.0); HEMATOCRIT 40.2 % (34.2-44.1); HEMOGLOBIN 12.8 g/dL (12.0-16.0); LYMPHOCYTES # (AUTO) 1.4 (1.0-3.2); LYMPHOCYTES % 15.3 % (18.0-39.1); MEAN CORPUSCULAR HEMOGLOBIN 31.8 pg (28-32); MEAN CORPUSCULAR HGB CONC 31.8 g/dL (31-35); MONOCYTES # (AUTO) 0.7 (0.2-0.8); MONOCYTES % 7.9 % (4.4-11.3); NEUTROPHILS # (AUTO) 6.5 (2.1-6.9); NEUTROPHILS % 73.6 % (38.7-80.0); PLATELET COUNT 187 x10e3/uL (140-360); RED BLOOD COUNT 4.02 x10e6/uL (3.6-5.1); RED CELL DISTRIBUTION WIDTH 15.3 % (11.7-14.4)
--- NOTE | 2018-10-31 06:54 | NUR ---
RECEIVED PATIENT RESTING IN BED. RESPIRATIONS EVEN AND UNLABORED, NO ACUTE DISTRESS NOTED. FAMILY MEMBER AT BEDSIDE. CALL LIGHT WITHIN REACH. BED IN THE LOWEST POSITION.
[2018-10-31 07:02] LABS: ANION GAP 12.8 mmol/L (8-16); BLOOD UREA NITROGEN 17 mg/dL (7-26); BUN/CREATININE RATIO 26 (6-25); CARBON DIOXIDE 37 mmol/L (22-29); CHLORIDE 91 mmol/L (98-107); CREATININE, SERUM 0.66 mg/dL (0.57-1.11); EST GLOMERULAR FILTRATION RATE > 60 ML/MIN (60-); GLUCOSE 80 mg/dL (74-118); POTASSIUM 3.8 mmol/L (3.5-5.1); SODIUM 137 mmol/L (136-145)
--- NOTE | 2018-10-31 07:10 | NUR ---
PT IS NPO FOR THORACENTESIS .DENIES PAIN .TURNED Q 2HRS .REPORT GIVEN TO THE ONCOMING NURSE
[2018-10-31] MEDS: IPRATROPIUM BROMIDE 0.02% 2.5 ML NEB NEB PRN (07:35)
[2018-10-31] MEDS: LEVALBUTEROL HCL SOLN NEBU 0.63 MG/3 ML NEB INH PRN (07:35)
[2018-10-31] MEDS: FUROSEMIDE INJ 10 MG/ML 2 ML VIAL IV SCH (08:03)
[2018-10-31] MEDS: LACTULOSE SYRUP 20 GM/30 ML UDC PO SCH ×3 (08:08→21:18)
[2018-10-31] MEDS: NYSTATIN 15 GM POWDER UD BTL TOP SCH (08:08)
[2018-10-31] MEDS: BALSAM PERU/CASTOR OIL 5 GM OINT...G. TP SCH (08:08)
--- NOTE | 2018-10-31 08:24 | NUR ---
CALLED [employer] SCIENTIFIC ORDER BY DR. Mina BRENNAN TO DEACTIVATE PATIENT'S ICD.
--- NOTE | 2018-10-31 12:28 | NUR ---
PATIENT OFF UNIT AT THIS TIME.
--- NOTE | 2018-10-31 13:19 | NUR ---
PATIENT BACK TO UNIT FROM PROCEDURE AT THIS TIME. SHE IS IN STABLE CONDITION.
--- NOTE | 2018-10-31 13:38 | Diagnostic Imaging Report ---
EXAMINATION: CHEST XRAY POST PROCEDURE INDICATION: Status post thoracentesis COMPARISON: Chest radiograph of 10/30/2018 FINDINGS: TUBES and LINES: Left chest AICD with leads in unchanged position. Median sternotomy wires in place. EKG leads overlie the thorax. LUNGS: The lungs are well-inflated. There is perihilar fullness and indistinctness of the pulmonary vasculature. There is left basilar opacity silhouetting the left sima diaphragm. PLEURA: Trace residual right pleural effusion status post right thoracentesis. Likely small left pleural effusion. HEART AND MEDIASTINUM: Cardiomediastinal silhouette is stably enlarged. BONES AND SOFT TISSUES: No acute fracture or dislocation. UPPER ABDOMEN: No free air under the diaphragm. IMPRESSION: No pneumothorax status post right thoracentesis. Likely trace residual right pleural effusion and small left pleural effusion. Patchy opacity at the left lung base, more likely atelectasis. Unchanged cardiomegaly. Signed by: Louis De Luna MD on 10/31/2018 1:34 PM
--- NOTE | 2018-10-31 13:50 | Diagnostic Imaging Report ---
PROCEDURE: Ultrasound-guided thoracentesis Procedural Personnel Attending physician(s): Louis De Luna MD Fellow physician(s): None Resident physician(s): None Advanced practice provider(s): None Pre-procedure diagnosis: Congestive heart failure, pleural effusion Post-procedure diagnosis: Same Indication: Bilateral Pleural effusion Additional clinical history: None Complications: No immediate complications. IMPRESSION: Ultrasound-guided thoracentesis with drainage of 1050 mL of serous fluid. Plan: Immediate postprocedural chest radiograph. Resume care by clinical team. PROCEDURE SUMMARY: - Limited thoracic ultrasound - Ultrasound-guided thoracentesis - Additional procedure(s): None PROCEDURE DETAILS: Pre-procedure Consent: Informed consent for the procedure including risks, benefits and alternatives was obtained and time-out was performed prior to the procedure. Preparation: The site was prepared and draped using maximal sterile barrier technique including cutaneous antisepsis. Anesthesia/sedation Level of anesthesia/sedation: No sedation Anesthesia/sedation administered by: Not applicable Total intra-service sedation time (minutes): Nonapplicable Limited thoracic ultrasound Limited thoracic ultrasound was performed using a curved transducer. A safe window for thoracentesis was identified. Left hemithorax findings: Nonapplicable Right hemithorax findings: Moderate pleural effusion. Thoracentesis Local anesthesia was administered. The pleural space was accessed under real-time ultrasound guidance and fluid return confirmed position. The fluid was drained. The catheter was removed, and a sterile bandage was applied. Catheter placed: 5F [place] Post-drainage hemithorax findings: No visible pleural effusion Additional Details Additional description of procedure: None Equipment details: None Specimens removed: Pleural fluid Estimated blood loss (mL): Less than 10 Standardized report: [email or web address] Attestation Signer name: Louis De Luna MD I attest that I was present for the entire procedure. I reviewed the stored images and agree with the report as written. Signed by: Louis De Luna MD on 10/31/2018 1:46 PM
--- NOTE | 2018-10-31 13:58 | NUR ---
REPORT FROM [employer] ON CHART FROM 10/31/18 @ 1136 STATES VENTRICULAR TACHY THERAPY IS DISABLED.
[2018-10-31] MEDS: METOPROLOL TARTRATE INJ 1 MG/ML VIAL IV PRN (14:04)
--- NOTE | 2018-10-31 14:12 | Progress Note ---
DATE: 10/31/2018 Cardiology Progress Note SUBJECTIVE: The patient denies chest pain or shortness of breath. OBJECTIVE: VITAL SIGNS: Temperature 97.9 degrees, pulse 124, respiratory rate 20, blood pressure 118/82, and oxygen saturation 94%. GENERAL: Elderly woman, frail, no acute distress awake and alert. LUNGS: Diminished breath sounds at the bases, otherwise clear to auscultation. No wheezes or crackles. CARDIOVASCULAR: Irregularly irregular, tachycardic. No murmur. ABDOMEN: Soft, nontender. EXTREMITIES: No edema. CARDIAC MEDICATIONS: 1. Metoprolol tartrate 25 mg p.o. q.6 hours. 2. Furosemide 20 mg IV daily. 3. Levothyroxine 112 mcg p.o. daily. 4. Warfarin 5 mg p.o. daily. LABORATORY DATA: WBC 8.8, hemoglobin 12.8, hematocrit 40.2, platelets 187. Sodium 137, potassium 3.8, chloride 91, CO2 37, BUN 17, creatinine 0.66. INR 1.59. TELEMETRY: Atrial tachycardia. IMPRESSION: 1. Atrial tachycardia. 2. Inappropriate implantable cardioverter-defibrillator shock. 3. Paroxysmal atrial fibrillation. 4. Cirrhosis. 5. Acute on chronic systolic heart failure. RECOMMENDATIONS: Continue current cardiac medications. Metoprolol for rate control. No amiodarone given liver disease. The patient has made decision to transition to hospice. [employer] was called to inactivate patient's ICD in preparation for this. Monitor patient on telemetry while admitted. Continue current cardiac medications. Thank you for this consult. We will continue to follow. Lynne Gutiérrez MD ABS/MODL /[id number]
--- NOTE | 2018-10-31 16:15 | NUR ---
CM SPOKE WITH AMANDA AT [facility] PT HAS A 3 K LIFE INSURANCE POLICY WHICH IS CAUSING DIFFICULTY WITH THE DELANEY PENDING IF FOCUSED CARE UNABLE TO TAKE TODAY WILL TRY V.C.C. PER AMANDA GONSALES TO FOLLOW ICD SCHEDULED TO BE DE-ACTIVATED TODAY
[2018-10-31 19:10] LABS: BODY FLUID APPEARANCE CLOUDY; BODY FLUID COLOR YELLOW; BODY FLUID TYPE PERITONEAL
[2018-10-31 19:11] LABS: RBC,BODY FLUID 2099 cells/uL; WBC,BODY FLUID 35 cells/uL
--- NOTE | 2018-10-31 19:26 | NUR ---
REPORT GIVEN TO ONCOMING NURSE. PATIENT IS RESTING IN BED. NO ACUTE DISTRESS NOTED. CALL LIGHT WITHIN REACH. BED IN THE LOWEST POSITION. BED ALARM ON.
[2018-10-31 20:07] LABS: LYMPHOCYTES,BODY FLUID 34 %; MONO/MACROPHG,BODY FLUID 7 %; NEUTROPHILS,BODY FLUID 32 %; OTHER CELLS,BODY FLUID 27 %
--- NOTE | 2018-10-31 20:08 | NUR ---
PT RESTING IN THE BED .PT HAD R SIDE THORACENTESIS AND TAKEN 1050 ML OF FLUID .CALL LIGHT WITH IN REACH CONTINUE TO MONITOR
--- NOTE | 2018-10-31 22:30 | Progress Note ---
DATE: 10/31/2018 Medicine Progress Note SUBJECTIVE: The patient is at baseline with no changes. It seems like the Case Management and the family is working [facility]. Hopefully, the logistics will be clarified by tomorrow. PHYSICAL EXAMINATION: VITAL SIGNS: Temperature 96.2, pulse 121, respiratory rate is 20, blood pressure 105/59, pulse ox is 96% on room air. GENERAL: Not in acute distress. Alert and oriented x3. Cooperative on examination. HEENT: Head is normocephalic and atraumatic. Eyes; pupils are equal, round, and reactive to light bilaterally. Extraocular movements are intact bilaterally. Throat, no evidence of erythema or exudates in the posterior pharynx. Has poor dentition. NECK: Supple. Good range of motion. PULMONARY: Clear to auscultation bilaterally. No wheezing, no rales, no rhonchi, no crackles appreciated. CARDIOVASCULAR: Positive S1, S2. No murmurs, rubs, or gallops appreciated. ABDOMEN: Soft, nondistended, and nontender to palpation. Bowel sounds present. MUSCULOSKELETAL: Strength is 5/5 throughout. No evidence of any muscle deficits on examination. No weakness appreciated. NEUROLOGICAL: Cranial nerves 2 through 12 grossly intact. No evidence of any neurological deficits on exam. SKIN: Intact. Warm to touch. Good cap refill. PSYCHIATRIC: At baseline. EXTREMITIES: No edema. Good range of motion throughout. LABORATORY FINDINGS: White count 8.8, hemoglobin 12.8, hematocrit is 40, platelets of 187. Chemistry; sodium 137, potassium 3.8, chloride 91, bicarb 37, anion gap of 12, BUN 17, creatinine 0.66, glucose is 80, calcium is 9. Thoracentesis was performed, pleural fluid is pending. MICROBIOLOGY: Pleural fluid, no growth, that was from yesterday and there was a previous pleural fluid that is final, negative. Urine culture negative, blood culture negative. IMPRESSION: 1. Acute exacerbation of congestive heart failure with systolic dysfunction. EF less than 20% with AICD. 2. Atrial tachycardia. 3. AICD shock. 4. Acute exacerbation of chronic obstructive pulmonary disease. 5. Liver cirrhosis. 6. Generalized weakness with medically debilitated. 7. Failure to thrive. 8. Pending hospice. PLAN: At this time, the ICD company will come and deactivate the AICD. The patient will be discharged hopefully tomorrow [facility]. Once again, I have discussed this with the daughter, Gloria by phone and she verbalized hospice and the patient verbalized this is well yesterday. We will continue with same plan of care. Follow up with consultants. Hopefully, she will be discharged tomorrow once cleared. MD DON Iglesias/VARUN /[id number]
[2018-11-01] VITALS (8 sets, daily range): BP systolic 82–133; BP diastolic 48–61
[2018-11-01] MEDS: METOPROLOL TARTRATE 25 MG TAB PO SCH ×4 (04:00→22:00)
[2018-11-01] MEDS: LEVOTHYROXINE SODIUM 112 MCG TAB PO SCH (05:16)
[2018-11-01 06:31] LABS: ALBUMIN 2.8 g/dL (3.5-5.0); BILIRUBIN,DIRECT 1.4 mg/dL (0.0-0.5)
--- NOTE | 2018-11-01 07:11 | NUR ---
BEDSIDE REPORT GIVEN TO THE ONCOMING NURSE
--- NOTE | 2018-11-01 08:00 | NUR ---
Pt received in bed with eyes closed easily arouses with verbal stimuli. Pt is aox2-3 can be confused at times. Holloway in place for urinary retention and has yellow clear urine in drainage bag.
[2018-11-01] MEDS: BALSAM PERU/CASTOR OIL 5 GM OINT...G. TP SCH (08:25)
[2018-11-01] MEDS: NYSTATIN 15 GM POWDER UD BTL TOP SCH (08:25)
[2018-11-01] MEDS: LACTULOSE SYRUP 20 GM/30 ML UDC PO SCH ×3 (08:25→20:20)
[2018-11-01] MEDS: FUROSEMIDE INJ 10 MG/ML 2 ML VIAL IV SCH (08:25)
--- NOTE | 2018-11-01 16:18 | NUR ---
Nutrition Follow-up Note RD Recommendation(s) for Physician: The patient meets criteria for MODERATE protein-calorie malnutrition. - Diet per MD - Continue Ensure Enlive TID to increase protein calorie intake Plan of Care: RD following, monitoring for tolerance and adequacy, ONS rec Nutrition reason for involvement: Follow up RD Assessment 11/01 - Pt was discussed during AM rounds. Pending placement to hospice care. Per RN, pt continued to have poor appetite with ~25% meal intake. Visited pt in the room. Pt tolerated current diet texture. Pt drank all of the Ensure given. Unable to obtain food preferences from pt. 10/25 Pt was discussed during AM rounds. Pt is confused and continues to have poor appetite. Pt drinks some of the Ensure ordered. Visited pt in the room. Pt was sleeping. No family on bedside. Pt took a few bites of lunch. Pending hospice evaluation. 10/21 Discussed case with SHANNAN Gregg. Pt has had poor appetite, even with meal assistance. Family brought a 6pk Yris Ensure and pt only drank a little bit. RN requested for Ensure Yris from kitchen as pt didnt like the other flavors. Renal function has slightly improved. Phos WNL. K is repleted. Will discuss with MD if it is appropriate to liberalize her diet. Will continue to monitor and follow. 10/18/2018 - 78yo F, who was admitted for Afib with RVR. Visited pt in the room. Pt reports poor appetite with nausea for many days. No vomiting episode noted. LBM 25. Pt doesnt have bottom denture; pt is agreeable with chopped diet. Pt denies any swallowing difficulty. Pt requires assistance with feeding. Unable to obtain weight hx. Reviewed old medical record and suspected some weight loss. Pending MBS and FIELD HAND evaluation. Will continue to monitor and follow. Principal Problems/Diagnoses: A fib, CHF PMH: HTN, COPD, CHF, LA, A fib GI: abdomen soft, non-tender, flatus present Skin: stage I sacrum wound Labs: (11/01) reviewed (10/25) reviewed (10/21)K 3.4 L, BUN 37 H, creatinine 1.72 H, Glucose 138 H, Ca 8.3 L (10/18) Na 135 L, K 5.2 H, Creatinine 1.48 H Meds: lopressor, lactulose, lasix, synthroid Ht: 65in Wt: 130lb 02/2018, 124.01lb 10/18/18, 131.25lb 10/21; 141lb 10/25; 125lb - 11/01 BMI: 20.6kg/m2 IBW: 125lbs Malnutrition Evaluation (10/18/2018) The patient meets criteria for MODERATE protein-calorie malnutrition. Energy intake: <75% of estimated energy requirements for >7 days Weight loss: Some weight loss, unknown onset Fat loss: Moderate clavicle protrusion Muscle loss: Moderate temporal depression Supporting Evidence: Fluid accumulation: unable to evaluate Functional Status: reduced Nutrition Prescription (Diet Order): GI soft diet w/ Ensure TID Estimated Nutritional Needs: Calories: 1400 - 1680 kcal (25-30kcal/kg/d) Weight used: CBW Protein: 84 112g (1.5-2g/kg/d) Weight used: CBW Diet Adequacy: Not meeting calorie needs, not meeting protein needs Diet Education Needs Assessment: Diet education indicated, but patient not appropriate for education at this time. Nutrition Care Level: low Nutrition Diagnosis: Moderate malnutrition related to inadequate oral intake as evidenced by <75% of estimated energy requirements for >7 days and moderate muscle/ fat loss. Goal: Patient will meet 75-100% of estimated needs by follow up Progress: progressing Interventions: Modified diet, Commercial beverage, Prescription medications Monitoring/Evaluation: Total energy intake, Total protein intake, Modified diet, Liquid supplement, Weight change Signed: Lata Merritt MS, RD, LD
--- NOTE | 2018-11-01 19:05 | NUR ---
Patient visited in room during nursing rounds. Patient alert and oriented x 2. Patient is on bed rest and appear very weak at this time. Patient's son and [id number] at bedside visiting. Pt tolerating GI soft diet with ground meats. Pt diapered and is incontinent. Pt is DNR in care. Holloway catheter in place for urinary retention draining gracie urine. Call clark within reach. Bed alarm active.
--- NOTE | 2018-11-01 20:46 | Progress Note ---
DATE: 11/01/2018 Cardiology Progress Note SUBJECTIVE: The patient denies chest pain. Her acceptance to hospice is pending. AICD has been turned off. OBJECTIVE: VITAL SIGNS: Temperature 97.2 degrees, pulse 120, respiratory rate 22, blood pressure 98/54, oxygen 94%. GENERAL: Elderly woman, frail, in no acute distress, awake and alert. LUNGS: Diminished breath sounds at the bases, otherwise clear to auscultation. No wheezes or crackles. CARDIOVASCULAR: Tachycardic, but regular. No murmur. ABDOMEN: Soft, nontender. EXTREMITIES: No edema. CARDIAC MEDICATIONS: Metoprolol tartrate 25 mg p.o. q.6 hours, furosemide 20 mg IV daily, levothyroxine 112 mcg p.o. daily. LABS: AST 40, ALT 137. TELEMETRY: Atrial fibrillation. IMPRESSION: 1. Atrial tachycardia, inappropriate AICD shock. 2. Paroxysmal atrial fibrillation. 3. Cirrhosis. 4. [id number] systolic heart failure. RECOMMENDATIONS: Continue current cardiac medications. Pending hospice placement. Metoprolol for rate control. No amiodarone given her coexisting liver disease. The patient has made decision to transition to hospice. Her AICD has therefore been inactivated. I will stop cardiac medications once the patient is transitioned to comfort care. Thank you for this consult. Please call with questions. Lynne Gutiérrez MD ABS/MODL /[id number]
[2018-11-02] VITALS: BP 88/49
[2018-11-02 04:00] VITALS: BP 121/63
[2018-11-02] MEDS: METOPROLOL TARTRATE 25 MG TAB PO SCH ×3 (05:30→16:00)
[2018-11-02] MEDS: LEVOTHYROXINE SODIUM 112 MCG TAB PO SCH (05:30)
--- NOTE | 2018-11-02 07:24 | Progress Note ---
DATE: 11/01/2018 SUBJECTIVE: The patient is at baseline with no issues. No overnight events. Still waiting on hospice acceptance. This has been ongoing for the last several days. PHYSICAL EXAMINATION: VITAL SIGNS: Temperature 97.3, pulse is 120, respiratory rate is 22, blood pressure last one 98/54, and pulse ox 94% on 3 L nasal cannula. GENERAL: Not in acute distress. Alert and oriented x3. Cooperative on examination. HEENT: Head is normocephalic and atraumatic. Eyes; pupils are equal, round, and reactive to light bilaterally. Extraocular movements are intact bilaterally. Throat, no evidence of erythema or exudates in the posterior pharynx. Has poor dentition. NECK: Supple. Good range of motion. PULMONARY: Clear to auscultation bilaterally. No wheezing, no rales, no rhonchi, no crackles appreciated. CARDIOVASCULAR: Positive S1, S2. No murmurs, rubs, or gallops appreciated. ABDOMEN: Soft, nondistended, and nontender to palpation. Bowel sounds present. MUSCULOSKELETAL: Strength is 5/5 throughout. No evidence of any muscle deficits on examination. No weakness appreciated. NEUROLOGICAL: Cranial nerves II through XII grossly intact. No evidence of any neurological deficits on exam. SKIN: Intact. Warm to touch. Good cap refill. PSYCHIATRIC: Normal affect and mood. EXTREMITIES: No edema. Good range of motion throughout. LABORATORY DATA: Total bilirubin 2.5, direct 1.4, AST 40, ALT 147, alkaline phosphatase 125, albumin 2.8. IMPRESSION: 1. Acute exacerbation of congestive heart failure with systolic dysfunction. EF less than 20% with AICD. 2. Atrial tachycardia. 3. AICD shock. 4. Acute exacerbation of chronic obstructive pulmonary disease. 5. Liver cirrhosis. 6. Generalized weakness and medically debilitation. 7. Failure to thrive. 8. Pending hospice care. PLAN: Continue with same plan of care. No change in the medication regimen. Labs reviewed and stable. Plan is now waiting for Case Management hopefully to have hospice arranged soon, and if so, , the patient can be discharged to the facility on hospice care. MD DON Iglesias/VARUN /[id number]
--- NOTE | 2018-11-02 07:47 | NUR ---
SPOKE WITH FOCUSED CARE, PT ACCEPTED TO ROOM [address] LARA [facility], SPOKE WITH [facility] THEY WILL ARRANGE LINING SCRUBBER FOR APPROXIMATELY 10AM
[2018-11-02 08:00] VITALS: BP_SYST 86; BP_SYST 88; BP_DIAS 54
--- NOTE | 2018-11-02 08:18 | NUR ---
Informed from case management that pt has been accepted to hospice and hospice set up transport for 1000. Notified attending for discharge orders and received orders that pt cannot be discharged until he come to see pt later this afternoon. Notified case management and they will called hospice and postpone transport until later this afternoon.
[2018-11-02] MEDS: LACTULOSE SYRUP 20 GM/30 ML UDC PO SCH ×2 (08:28→15:00)
[2018-11-02] MEDS: NYSTATIN 15 GM POWDER UD BTL TOP SCH (08:30)
[2018-11-02] MEDS: BALSAM PERU/CASTOR OIL 5 GM OINT...G. TP SCH (08:30)
[2018-11-02] MEDS: FUROSEMIDE INJ 10 MG/ML 2 ML VIAL IV SCH (09:00)
[2018-11-02 12:00] VITALS: BP 97/58
[2018-11-02 16:42] VITALS: BP 95/62
--- NOTE | 2018-11-02 17:20 | NUR ---
Pt discharged to SNF under [facility]. Pt is aox2 and able to verbalize needs. Denies any pain at this time. Family members at the bedside at time of discharge.
--- NOTE | 2018-11-02 22:14 | Discharge Summary ---
FINAL DISCHARGE DIAGNOSES: 1. Acute exacerbation of congestive heart failure with diastolic dysfunction with an EF of less than 20% with an AICD. 2. Atrial tachycardia. 3. AICD shock. 4. Acute exacerbation of chronic obstructive pulmonary disease. 5. Liver cirrhosis. 6. Generalized weakness and medically debilitated. 7. Failure to thrive. 8. Admitted to hospice services. 9. Chronic hypotension. CONSULTANTS: We had Cardiology, Nephrology, pulmonary, and GI. PHYSICAL EXAMINATION: VITAL SIGNS: Temperature 98.6, pulse was 121, respiratory rate is 22, blood pressure was 95/62, pulse ox 100% on 3 L nasal cannula. LABORATORY FINDINGS: Show white count 8.8, hemoglobin 12.8, hematocrit 40, platelets of 187. Coagulation; PT 19.6, INR 1.59. Chemistry; sodium 137, potassium 3.8, chloride 91, bicarb 37, anion gap of 12, BUN 17, creatinine is 0.66, glucose is 80, calcium is 9, AST 40, ALT 137, total bilirubin is 2.5, direct bilirubin is 1.4. Troponins were negative. Albumin 2.8. LDL was 30. BNP 770. Urinalysis was negative. Peritoneal and pleural fluid noted. The patient had thoracentesis and paracentesis. MICROBIOLOGY: Blood cultures negative. Urine cultures negative. Thoracentesis negative. Paracentesis negative. IMAGING STUDIES: Chest x-ray, moderate cardiomegaly with pulmonary vascular congestion. CT of the chest, impression; no pulmonary embolism. Severe global cardiomegaly with findings compatible right heart failure. 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 Multiple right upper lobe pulmonary nodules seen, measuring [address] abdomen and pelvis shows cirrhotic morphology of the liver with pleural effusions and mild ascites. Renal ultrasound shows no evidence of hydronephrosis with normal renal echogenicity. Free fluid around the liver and spleen. Thoracentesis showed 600 mL removed. Chest ultrasound shows moderate pulmonary effusions. Chest x-ray shows more pulmonary edema with patchy infiltrates. There is a thoracentesis on ultrasound that they removed 450 mL of fluid. Repeat thoracentesis removed an additional more fluid. Chest x-ray shows no evidence of pneumothorax, this is post thoracentesis. HOSPITAL COURSE: This is a 78-year-old female with multiple comorbidities, of note history of COPD, severe heart failure with an AICD, history of atrial fibrillation, hiatal hernia, multiple hospital admissions, came into the hospital with atrial fibrillation with RVR. The patient was initially in the ICU with underlying shortness of breath as well, found to have elevated transaminases. CT scan findings consistent with liver cirrhosis, pleural effusion, ascites, and underlying thrombocytopenia. GI was consulted for further management and care. It was suspected this elevated transaminases from GI that the patient likely has congestive hepatopathology leading to elevated transaminases. They recommended just supportive care. They also recommended an autoimmune workup, which was performed. She had paracentesis and thoracentesis performed. All cultures of those were found to be negative. No further workup by GI. Pulmonary was involved as well in the ICU due to her respiratory distress. She ended up undergoing a thoracentesis in bilateral lungs with fluid removed. Pleural fluid collection was found to be negative for any growth. Cardiology was involved for the patient's atrial fibrillation with RVR and severe heart failure. The patient was on rate control medications. Home medications were adjusted accordingly by Cardiology. The patient also had acute kidney injury with electrolyte abnormalities requiring Nephrology consultation. After further discussion that Dr. Paul had with the family, they had agreed to hospice services. I am currently covering Dr. Paul and I spoke with the daughter, Gloria, including the granddaughter, who was at bedside including the patient using the nurse as a witness, I talked to them about the conversation they had with Dr. Paul and they endorsed to me that they had agreed to be admitted under hospice services. Due to the patient's multiple comorbidities, malnutrition, severe heart failure with an AICD, atrial fibrillation, thoracentesis, paracentesis, liver cirrhosis, and multiple other comorbidities, it was felt by the patient and the family that the hospice was the best option for her and they understand her quality of life is significantly poor. I had a conversation thoroughly, which was well documented in the chart. On discharge, the patient was cleared to go discharge to hospice services as per family's wishes and the patient. On discharge, vital signs were stable, labs reviewed and stable. The patient seen and evaluated, examined thoroughly on the day of discharge. No other complaints. The patient verbalized understanding and agreed to plan of care to follow up accordingly as an outpatient with a hospice company for further treatment and care. MEDICATIONS: See med reconciliation form. DISPOSITION: Home. CONDITION: Stable. DIET: Heart healthy. In the event of any worsening symptoms, the patient was advised to come back to the ED for further evaluation. Discharge summary took greater than 35 minutes. Once again, it is documented throughout the entire chart by all consultants about hospice and the patient was discharged to hospice as per patient and family's wishes. MD DON Iglesias/MODAlex /[id number]
== END 2018-11-02 17:20 | disposition hospice, home (50) | DRG 291 ==
LOC: ER 12:42 → ERHOLD 14:30 → ICU 15:39 → MED/SURG3 10-25 18:27
PROVIDERS: ADMIT Internal Medicine; ATTEND Internal Medicine
PROC: 0W993ZZ Drainage of Right Pleural Cavity, Percutaneous Approach (ICD-10-PCS; 2018-10-25)
PROC: 0W9B3ZZ Drainage of Left Pleural Cavity, Percutaneous Approach (ICD-10-PCS; 2018-10-30)
PROC: 0W993ZZ Drainage of Right Pleural Cavity, Percutaneous Approach (ICD-10-PCS; principal; 2018-10-31)
DX: I11.0 Hypertensive heart disease with heart failure (principal); N17.0 Acute kidney failure with tubular necrosis; I47.1 Supraventricular tachycardia; N17.9 Acute kidney failure, unspecified; T82.199A Other mechanical complication of unspecified cardiac device, initial encounter; N39.0 Urinary tract infection, site not specified; J44.1 Chronic obstructive pulmonary disease with (acute) exacerbation; Z68.1 Body mass index [BMI] 19.9 or less, adult; J96.11 Chronic respiratory failure with hypoxia; E46 Unspecified protein-calorie malnutrition; T82.897A Other specified complication of cardiac prosthetic devices, implants and grafts, initial encounter; E44.0 Moderate protein-calorie malnutrition; I50.23 Acute on chronic systolic (congestive) heart failure; R62.7 Adult failure to thrive; K74.60 Unspecified cirrhosis of liver; Z66 Do not resuscitate; N99.0 Postprocedural (acute) (chronic) kidney failure; I25.10 Atherosclerotic heart disease of native coronary artery without angina pectoris; I95.89 Other hypotension; I48.0 Paroxysmal atrial fibrillation; Z79.01 Long term (current) use of anticoagulants; E03.9 Hypothyroidism, unspecified; E78.5 Hyperlipidemia, unspecified; E87.5 Hyperkalemia; F17.210 Nicotine dependence, cigarettes, uncomplicated; K74.69 Other cirrhosis of liver; Z95.810 Presence of automatic (implantable) cardiac defibrillator; I73.9 Peripheral vascular disease, unspecified; Z95.1 Presence of aortocoronary bypass graft
CPT/HCPCS: 32555; 36415; 71045; 71260; 74176; 74470; 76604; 76770; 80048; 80053; 80061; 80076; 81001; 81015; 82140; 82550; 82553; 82565; 82570; 82945; 82948; 83605; 83615; 83735; 83880; 84100; 84132; 84156; 84157; 84300; 84436; 84443; 84479; 84484; 84520; 85025; 85379; 85610; 85730; 86039; 86255; 86803; 87040; 87070; 87086; 87205; 87340; 88112; 88305; 89051; 93005; 93041; 93306; 94640; 94660; 97139; 99284; J0696; J1160; J1650; J1940; J2405; J3480; J7040; J7050; J7070; Q9967